=== PATIENT | male | born 1955 | race American Indian/Alaskan Native ===

== ENCOUNTER 2018-09-19 14:57 | Inpatient (IN) ==
[~2018-09-19 14:57] MED LIST: THIAMINE 100 MG in 0.9 % SODIUM CHLORIDE 50 ML IV SCH
[2018-09-19] MEDS ORDERED: IOPAMIDOL 100 ML BOTTLE IV ONE (14:58)
[2018-09-19] MEDS ORDERED: 0.9 % SODIUM CHLORIDE 1,000 ML IV ONE ×2 (15:21→16:51)
--- NOTE | 2018-09-19 15:46 | XRay Report ---
HISTORY: Tachypnea and right upper quadrant pain FINDINGS: The lungs are clear and well expanded. No pleural effusion is present and there is no free air beneath the diaphragms. The heart size, mediastinum, piotr and pulmonary vasculature are normal. There is a subtle dextroscoliotic curvature in the upper thoracic spine. Comparison with the prior exam from 04/20/18 shows no significant change. IMPRESSION: Normal chest Interpreted and Authenticated by: Rc Diaz 09/19/18
[2018-09-19 15:48] LABS: Basophils # (Auto) 0 K/mcL (0.0-0.3); Basophils % (Auto) 0.4 % (0.0-2.0); Eosinophils # (Auto) 0.1 K/mcL (0.0-0.7); Eosinophils % (Auto) 0.7 % (0.0-7.0); Granulocytes % (Auto) 75.9 % (38.0-78.0); Lymphocytes # (Auto) 1.4 K/mcL (1.5-4.8); Lymphocytes % (Auto) 15.9 % (15.5-49.0); Mean Corpuscular HGB Conc 33.2 g/dL (31.0-36.0); Monocytes # (Auto) 0.6 K/mcL (0.1-0.9); Monocytes % (Auto) 7.1 % (1.0-12.0); Platelet Count 244 K/mcL (140-440); RBC 4.32 M/mcL (4.50-5.90); Red Cell Distribution Width 12.6 % (11.5-14.5)
[2018-09-19] MEDS ORDERED: LORazepam 2 MG/ML VIAL IV ONE ×2 (15:52→19:04)
--- NOTE | 2018-09-19 16:01 | Emergency Department Note ---
Abdominal Pain HPI - General Chief Complaint: Abdominal Pain Stated Complaint: RUQ Abdominal Pain x2 Weeks Time Seen by Provider: 09/19/18 15:37 Source: patient Mode of arrival: ambulatory Limitations: no limitations - History of Present Illness HPI Narrative: This 63-year-old male comes emergency room reporting that he is vomited at least 20+ times in the past 24 hours. He is tried to drink fluids usually alcohol. He reports being a severe alcoholic sometimes as many as 12 beer per day. He has had 4 days of not keeping much of anything down. His pain in the right upper quadrant has been rather severe. Sometimes the pain spikes and sometimes is not so bad in between. Pain can be as severe as 7-8 out of 10. It has been accompanied with some cold sweats. No diarrhea. REVIEW OF SYSTEMS: Denies fevers. Denies chest pain. Some cough is not productive. Occasional little wheezing. No shortness of breath. No history of COPD diagnosed. No diarrhea or constipation, hematochezia or melena. Has a little dysuria. He has previously had some sort of a laser and is not certain if this was on the bladder or on his prostate. No back pain No headaches. Does feel very weak and lightheaded/dizzy. Some chronic anxiety and depression. He does not believe he has any diagnosis of bipolar or posttraumatic kinds of problems. Has had a history of a seizure related to alcohol withdrawal. - Related Data Home Medications Medication Instructions Recorded Confirmed Aripiprazole [Abilify] 20 mg PO QHS 02/13/18 06/12/18 Losartan [Cozaar] 50 mg PO DAILY 02/13/18 06/12/18 Oxybutynin Chloride [Oxybutynin 10 mg PO QDAY 02/13/18 06/12/18 Chloride ER] medication for prostate unknown PO BID 06/12/18 06/12/18 Allergies Allergy/AdvReac Type Severity Reaction Status Date / Time penicillin V [From Pen-Vee K] Allergy Severe Anaphylaxis Verified 06/12/18 08:00 Abdominal Pain PMH - Past Medical History [facility] Narrative: Medical History (Last Updated 09/19/18 @ 16:07 by Vaibhav Terrell DO) BPH (benign prostatic hyperplasia) (Chronic) Cigarette smoker (Chronic) COPD (chronic obstructive pulmonary disease) (Chronic) Hypertension, essential (Chronic) Alcohol abuse, continuous drinking behavior (Chronic) Alcohol withdrawal seizure (Resolved) History of pancreatitis (Chronic) Macrocytosis (Chronic) History of suicide attempt (Resolved) Drug overdose (Resolved) Anxiety (Chronic) Depression (Chronic) History of hepatitis C (Resolved) Erectile dysfunction (Chronic) Curvature of the penis (Chronic) Urinary urgency (Chronic) Alcohol intoxication (Resolved) Fatigue (Resolved) Sciatica (Resolved) Past Surgical History (Last Reviewed 12/21/17 @ 09:29 by Shaina Torres RN) History of photovaporization of prostate (Acute) History of appendectomy (Chronic) History of back surgery (Chronic) Family History (Last Reviewed 12/21/17 @ 09:29 by Shaina Torres RN) Other No pertinent family history Medical history: Reports: liver disease, other (pancreatitis). Denies: atrial fibrillation, COPD (but chart indicates COPD in Active Problem list), DM, hypothyroidism, myocardial infarction Denies: diverticulitis, kidney stone, pancreatitis (chart indicates has had in nursing history/notes.), peptic ulcer disease Psychiatric history: Reports: depression, prior suicide attempt - Social History Smoking status: Current every day smoker Alcohol use: Reports: Heavy, Recent Physical Exam Limitations: no limitations General appearance: alert, malaise (Moderate), other (Rather shaky) Head: atraumatic, normocephalic Eye: Present: EOMI, conjunctival injection ENT: normal oropharynx, mucous membranes moist Neck: Present: trachea midline, lymphadenopathy (Mild bilateral upper anterior nodes). Absent: thyromegaly Chest: Present: symmetric chest wall rise Respiratory: Present: normal lung sounds bilaterally. Absent: respiratory distress, wheezes, stridor, accessory muscle use, prolonged expiratory phase Cardiovascular: Present: regular rate, normal rhythm. Absent: systolic murmur, diastolic murmur Abdominal: Present: soft, tenderness, guarding. Absent: distention, rebound, rigidity, organomegaly, mass Abdominal tenderness: Present: RUQ, epigastrium, moderate, severe Extremities: Absent: pedal edema, pretibial edema, calf tenderness Back: Present: tenderness (Subjectively mildly tender in the lower back over the spinous processes area but no wincing or withdrawal on outpatient or percussion.). Absent: CVA tenderness (R), CVA tenderness (L), spinous process tenderness Neurological: Present: alert, CN II-XII intact Psychiatric: Present: flat affect, serious Skin: Present: warm, dry Course Vital Signs Temperature 99.0 F 09/19/18 14:58 Pulse Rate 100 H 09/19/18 14:58 Respiratory Rate 22 09/19/18 14:58 Blood Pressure 154/89 09/19/18 14:58 Pulse Oximetry (%) 97 09/19/18 14:58 Temperature 99.0 F 09/19/18 14:58 Pulse Rate 95 H 09/19/18 19:36 Respiratory Rate 20 09/19/18 19:46 Blood Pressure 136/90 09/19/18 19:46 Pulse Oximetry (%) 96 09/19/18 19:36 Abdominal Pain - MDM Narrative Medical decision making narrative: 3:43 PM Acute abdominal pain with persisting nausea and vomiting with poor intake times 4 days on top of a history of rather severe alcoholism. Suspect pancreatitis. Multiple labs, begin with x-ray imaging then go to ultrasound. May need CT as well. Has a history of pancreatitis although he denied that during the history. Several things in his history seem to be contraindicated by what is in his chart suspicious for possible alcoholic encephalopathy. Because of his high alcohol intake in 4 days without much kept in and him being quite shaky now, we will go ahead with lorazepam 0.5 followed by 1 mg frequently as needed to try to suppress his shakes and/or if he develops any tachycardia or diaphoresis. Radiologist calls at 5:03 PM and reports abdominal ultrasound - there is fatty liver but not cirrhotic. Plump pancreas but no specific signs of pancreatitis. Lipase is 82. No other specific findings to represent probable cause. Will do CT abdomen with contrast. 7:[address] scan includes moderate fatty liver disease but no associated varices or ascites. Pancreas appears unremarkable. There is a significant amount of stool in the colon of the right hepatic flexure area and it makes it somewhat difficult to rule out a mass. There is atherosclerotic disease of coronary arteries and lumbar degenerative disc disease. Patient is agreeable to be in the hospital with his history of 4 days of poor p.o. intake, sodium of 116, history of rather significant alcoholism. 8:08 PM I spoke with Dr. Ezra العراقي, hospitalist, who kindly accepts this patient for inpatient additional monitoring and treatment. - Medical Records Medical records reviewed: Yes I reviewed the patient's medical records. - Lab Data Lab results reviewed: Yes I reviewed the patient's lab results. Result diagrams: 09/19/18 15:15 09/19/18 15:15 Lab Results 09/19/18 09/19/18 09/19/18 Range/Units 15:15 15:15 15:15 WBC 8.9 (4.5-11.0) K/mcL RBC 4.32 L (4.50-5.90) M/mcL Hgb 15.2 (13.5-16.5) g/dL Hct 45.8 (41.0-55.0) % MCV 106.0 H (80.0-100.0) fL MCH 35.2 H (26.0-34.0) pg MCHC 33.2 (31.0-36.0) g/dL RDW 12.6 (11.5-14.5) % Plt Count 244 (140-440) K/mcL MPV 7.2 L (7.4-10.4) fL Gran % 75.9 (38.0-78.0) % Lymph % (Auto) 15.9 (15.5-49.0) % [place] % (Auto) 7.1 (1.0-12.0) % Eos % (Auto) 0.7 (0.0-7.0) % Baso % (Auto) 0.4 (0.0-2.0) % Gran # 6.7 (1.8-8.0) K/mcL Lymph # (Auto) 1.4 L (1.5-4.8) K/mcL [place] # (Auto) 0.6 (0.1-0.9) K/mcL Eos # (Auto) 0.1 (0.0-0.7) K/mcL Baso # (Auto) 0 (0.0-0.3) K/mcL VBG Lactic Acid 2.2 H (0.5-2.0) mmol/L Sodium 116 L* (133-145) mmol/L Potassium 3.9 (3.3-5.1) mmol/L Chloride 81 L (96-108) mmol/L Carbon Dioxide 22 (22-30) mmol/L Anion Gap 13.0 (8-16) BUN 6 L (8-23) mg/dl Creatinine 0.7 (0.7-1.2) mg/dl GFR Calculation 100 Glucose 107 H (70-105) mg/dL Calcium 8.6 (8.6-10.4) mg/dl Total Bilirubin 0.8 (0.0-1.0) mg/dL AST 28 (0-37) U/l ALT 23 (0-40) U/l Alkaline Phosphatase 45 (39-117) U/L C-Reactive Protein (0.0-0.8) mg/dl Total Protein 7.5 (5.9-8.4) gm/dL Albumin 4.4 (3.2-5.2) gm/dL Globulin 3.1 (2.2-3.7) gm/dL Albumin/Globulin Ratio 1.4 (1.0-2.3) Lipase (7-60) U/L Procalcitonin (<0.10) ng/mL Ethyl Alcohol (<0.010) gm/dl 09/19/18 09/19/18 09/19/18 Range/Units 15:15 15:15 15:15 WBC (4.5-11.0) K/mcL RBC (4.50-5.90) M/mcL Hgb (13.5-16.5) g/dL Hct (41.0-55.0) % MCV (80.0-100.0) fL MCH (26.0-34.0) pg MCHC (31.0-36.0) g/dL RDW (11.5-14.5) % Plt Count (140-440) K/mcL MPV (7.4-10.4) fL Gran % (38.0-78.0) % Lymph % (Auto) (15.5-49.0) % [place] % (Auto) (1.0-12.0) % Eos % (Auto) (0.0-7.0) % Baso % (Auto) (0.0-2.0) % Gran # (1.8-8.0) K/mcL Lymph # (Auto) (1.5-4.8) K/mcL [place] # (Auto) (0.1-0.9) K/mcL Eos # (Auto) (0.0-0.7) K/mcL Baso # (Auto) (0.0-0.3) K/mcL VBG Lactic Acid (0.5-2.0) mmol/L Sodium (133-145) mmol/L Potassium (3.3-5.1) mmol/L Chloride (96-108) mmol/L Carbon Dioxide (22-30) mmol/L Anion Gap (8-16) BUN (8-23) mg/dl Creatinine (0.7-1.2) mg/dl GFR Calculation Glucose (70-105) mg/dL Calcium (8.6-10.4) mg/dl Total Bilirubin (0.0-1.0) mg/dL AST (0-37) U/l ALT (0-40) U/l Alkaline Phosphatase (39-117) U/L C-Reactive Protein < 0.3 (0.0-0.8) mg/dl Total Protein (5.9-8.4) gm/dL Albumin (3.2-5.2) gm/dL Globulin (2.2-3.7) gm/dL Albumin/Globulin Ratio (1.0-2.3) Lipase 82 H (7-60) U/L Procalcitonin < 0.05 (<0.10) ng/mL Ethyl Alcohol 0.022 H (<0.010) gm/dl - Radiology Data Radiology results reviewed: Yes I reviewed the patient's radiology results. Disposition Pt seen by VETERINARY TECHNOLOGIST/PA only: No Clinical Impression: Hyponatremia, Alcohol abuse, continuous drinking behavior, Tremulousness Nausea & vomiting Qualifiers: Vomiting type: unspecified Vomiting Intractability: intractable Qualified Code(s): R11.2 - Nausea with vomiting, unspecified Disposition: Xfer As Inpt ([facility] [place])
[2018-09-19 16:09] LABS: C-Reactive Protein < 0.3 mg/dl (0.0-0.8); Lipase 82 U/L (7-60)
[2018-09-19 16:17] LABS: ALT/SGPT 23 U/l (0-40); Albumin 4.4 gm/dL (3.2-5.2); Albumin/Globulin Ratio 1.4 (1.0-2.3); Alkaline Phosphatase 45 U/L (39-117); Blood Urea Nitrogen 6 mg/dl (8-23)
--- NOTE | 2018-09-19 16:18 | XRay Report ---
HISTORY: Right upper quadrant pain for two weeks FINDINGS: There are a few air-fluid levels in bowel in the right mid abdomen. This is probably within a mobile cecum. It is not abnormally dilated. The small intestine is decompressed. No free intra-abdominal air is present. There is no apparent soft tissue mass. There are several vascular calcifications in the aorta and iliac arteries. Patient has had prior laminectomy performed from L2-3 through L4-5. IMPRESSION: No acute abnormality Interpreted and Authenticated by: Rc Diaz 09/19/18
--- NOTE | 2018-09-19 17:07 | Ultrasound Report ---
History: Right upper quadrant pain with nausea and vomiting FINDINGS: The liver is within normal limits of size but the parenchyma is mildly echogenic due to fatty infiltration. There are focal area of spared normal liver parenchyma adjacent the gallbladder fossa. The fatty infiltration was more apparent on the prior CT scan done on 06/15/17. There is no radiographic evidence of cirrhosis. Doppler shows normal blood flow in the hepatic and portal veins. The gallbladder is normal with no stones or thickening of the wall. Common bile duct ranges from 4.5 to 5.5 mm. The pancreas is somewhat heterogeneous and hypoechoic. It does not appear to be acutely inflamed and no pancreatic tumor is seen. There is a trace amount of ascites between the liver and pancreas. No abscess is seen. IMPRESSION: Fatty infiltration of liver Heterogeneous pancreas which could be due to low-grade chronic pancreatitis or fibrosis Trace amount of ascites Dr. Terrell was called with the results Interpreted and Authenticated by: Rc Diaz 09/19/18
[2018-09-19] MEDS ORDERED: ONDANSETRON 4 MG/2 ML VIAL IV ONE (18:35)
[2018-09-19 20:14] LABS: Appearance,Urine CLEAR; Bilirubin,Urine NEG (NEG); Color,Urine STRAW; Glucose,Urine (UA) NEGATIVE (NEG); Leukocyte Esterase,Urine NEG /uL (NEG); Protein,Urine NEG (NEG); Specific Gravity,Urine 1.002 (1.000-1.035); Urine Blood NEG mg/dL (<0.03); Urobilinogen,Urine NEG (NEG)
[2018-09-19 20:22] LABS: Amphetamine Screen,Urine NONE DETECTED (NONDETECTED); Benzodiazepines Screen,Urine NONE DETECTED (NONDETECTED); Cocaine Screen,Urine NONE DETECTED (NONDETECTED); Opiate Screen,Urine NONE DETECTED (NONDETECTED); Oxycodone, Urine Screen NONE DETECTED (NONDETECTED)
[2018-09-19] MEDS ORDERED: LORazepam 2 MG/ML VIAL IV PRN (20:50)
[2018-09-19] MEDS ORDERED: chlordiazePOXIDE 25 MG CAPSULE PO PRN ×2 (20:50→21:47)
--- NOTE | 2018-09-19 20:58 | Internal Med History&Physical ---
Medical - H&P: HPI Patient information: Note initiated : 09/19/18 at 8:53 pm Service Date, if different from initiated Date: [] Patient: Dany Marrero 63 y/o M admitted on for RUQ Abdominal Pain x2 Weeks. Chief Complaint: [] History of present illness: Mr. Marrero is a 63 year old M right upper quadrant pain. Patient states he has had abdominal pain for 2-3 weeks. Does not recall how it started or the circumstances around when he first experienced it. He describes it as a sharp pain nonradiating made worse by movement better by laying down. He went to the [facility] and he said the plan was to do a abdominal ultrasound which has not been done yet. Came in today because he has had nausea vomiting for 4 days is been unable to keep anything down. He states he has a small appetite typical eating a hotdog and piece of bread. He drinks alcohol 6-12 beers per day. He states he is cut down he is to be 30 beers per day 7 months ago. He states he thinks his last bowel movement was this morning was soft, no recent diarrhea. But has had nausea vomiting as previously mentioned past 4 days unable to keep anything down including his alcohol today. He last had a beer 1230 but vomited it back up. Per notes he did have a seizure in the past related to alcohol withdrawal. He was able to tell the ER that he was having some withdrawal. In the ED had extensive workup. His sodium was found to 116 with a mildly elevated lactate at 2.2. No signs of infection. Urinalysis with ketones abdominal x-ray ultrasound and CT to try to delineate the Cause and source of this pain. Abdominal ultrasound with fatty liver. Gallbladder unremarkable. The CT abdomen per ED physician, no official report yet. But no acute findings other than what appeared to be some stool impacted in the colon. But otherwise no pancreatitis or other source of the pain. Review of Systems: Pertinent positives as above. Has chronic cough. Denies fever/chills/chest pain/dyspnea/diarrhea. Remaining 10 point review of systems reviewed negative Medical - H&P: PM Medical history: Medical History (Last Updated 09/19/18 @ 20:17 by Vaibhav Terrell DO) ASHD (arteriosclerotic heart disease) (Chronic) BPH (benign prostatic hyperplasia) (Chronic) Cigarette smoker (Chronic) COPD (chronic obstructive pulmonary disease) (Chronic) Hypertension, essential (Chronic) Alcohol abuse, continuous drinking behavior (Chronic) History of pancreatitis (Chronic) Macrocytosis (Chronic) History of suicide attempt (Resolved) Drug overdose (Resolved) Anxiety (Chronic) Depression (Chronic) History of hepatitis C (Resolved) Erectile dysfunction (Chronic) Curvature of the penis (Chronic) Urinary urgency (Chronic) Degenerative disc disease, lumbar (Chronic) Alcohol intoxication (Resolved) Fatigue (Resolved) Sciatica (Resolved) Past Surgical History (Last Reviewed 12/21/17 @ 09:29 by Shaina Torres RN) History of photovaporization of prostate (Acute) History of appendectomy (Chronic) History of back surgery (Chronic) Family History (Last Reviewed 12/21/17 @ 09:29 by Shaina Torres RN) Other Mother and father both had heart disease Social History (Last Updated 06/12/18 @ 08:06 by Joshua Avila MD) Smokes 1/2 packs/day of cigarettes Drinks 6-12 beers per day, has cut down he used to be 30 beers per day 7 8 months ago. Uses a cane because of hip pain, denies any neuropathy or ataxia. Lives by himself Medical - H&P: Meds Home Medications Medication Instructions Recorded Confirmed Type Losartan [Cozaar] 50 mg PO DAILY 02/13/18 09/19/18 History Allergies Allergy/AdvReac Type Severity Reaction Status Date / Time penicillin V [From Pen-Vee K] Allergy Severe Anaphylaxis Verified 06/12/18 08:00 Medical - H&P: Exam - Constitutional Vitals: Temp Pulse Resp BP Pulse Ox 99.0 F 94 H 14 124/75 94 09/19/18 14:58 09/19/18 20:41 09/19/18 20:41 09/19/18 20:41 09/19/18 20:41 Exam: General: Alert, Awake, No acute Distress Eyes/N/T: EOMI, PEERL, Head/Neck: neck supple, normocephalic atraumatic CV: RRR, No murmurs, normal s1/s2 Pulm: Clear b/l, no wheezing/rhonchi/rales Abd: soft, protuberant, tenderness to elevation right lower and right upper quadrant, +BS x4 Ext: no clubbing/cyanosis/edema Neuro: Alert, no focal deficits, moves all extremities, CN 2-12 grossly intact, symmetrical strength b/l upper/lower, sensations intact b/l upper/lower Skin: warm/dry Medical - H&P: Reslt - Labs CBC & Chem 7: 09/19/18 15:15 09/19/18 15:15 Labs: Short CBC 09/19/18 Range/Units 15:15 WBC 8.9 (4.5-11.0) K/mcL Hgb 15.2 (13.5-16.5) g/dL Hct 45.8 (41.0-55.0) % Plt Count 244 (140-440) K/mcL BMP 09/19/18 15:15 Sodium 116 L* Potassium 3.9 Chloride 81 L Carbon Dioxide 22 BUN 6 L Creatinine 0.7 Glucose 107 H Calcium 8.6 Liver Function 09/19/18 Range/Units 15:15 Total Bilirubin 0.8 (0.0-1.0) mg/dL AST 28 (0-37) U/l ALT 23 (0-40) U/l Alkaline Phosphatase 45 (39-117) U/L Albumin 4.4 (3.2-5.2) gm/dL Urine 09/19/18 Range/Units 19:34 Urine Color Straw Urine Appearance Clear Urine pH 7.0 (5.0-9.0) Ur Specific [place] 1.002 (1.000-1.035) Urine Protein Neg (NEG) mg/dL Urine Glucose (UA) Negative (NEG) mg/dL Medical - H&P: A/P - Narrative A/P Narrative: A: *Hyponatremia, severe: 2/2 beer potomania and 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 -Acute on Chronic, but for purposes of treatment this is a chronic state - *N/V: 2/2 above *RUQ Abd pain: ?etiology not isolated as of yet, ?fecal impaction, ?atypical chronic pancreatitis -imaging no obvious cause, LFT's/lipase ok -no fever/jaundice to suspect cholangitis *Etoh Abuse in Withdrawal: *HTN: on losartan *Depression: *Fatty liver: 2/2 etoh *Tobacco abuse *COPD (not on home O2) *h/o Hep C, treated in past: P: -pending official CT report -BMP before any more NS IVF's, serial BMP -Urine and osmolality studies -TSH -Clear liquids -CIWA/vitamin/benzo's -Folate/B12 check - -Tobacco/alcohol cessation counseling - -ppx: lovenox/pepcid
[2018-09-19 21:30] LABS: Osmolality,Urine 111 mOsm/kg (80-1000)
[2018-09-19] MEDS ORDERED: ACETAMINOPHEN 325 MG TABLET PO PRN (21:47)
[2018-09-19] MEDS ORDERED: ONDANSETRON 4 MG/2 ML VIAL IV PRN (21:47)
[2018-09-19] MEDS ORDERED: PROMETHAZINE 12.5 MG SUPP.RECT PR PRN (21:47)
[2018-09-19] MEDS ORDERED: POLYETHYLENE GLYCOL 3350 17 GM PACKET PO PRN (21:47)
[2018-09-19] MEDS ORDERED: METOCLOPRAMIDE 10 MG/2 ML VIAL IV PRN (21:47)
[2018-09-19] MEDS ORDERED: POTASSIUM CHLORIDE 20 MEQ TABLET PO PRN ×2 (21:47)
[2018-09-19] MEDS ORDERED: MAGNESIUM SULFATE 2 GM/50 ML BAG IV PRN (21:47)
[2018-09-19] MEDS ORDERED: POTASSIUM CHLORIDE 40 MEQ in DEXTROSE 5% IN WATER 500 ML IV PRN (21:47)
[2018-09-19] MEDS ORDERED: IPRATROPIUM/ALBUTEROL 3 ML AMPUL.NEB NEB PRN (21:47)
[2018-09-19] MEDS ORDERED: FLEETS ADULT ENEMA PR PRN (21:47)
[2018-09-19] MEDS ORDERED: SENNOSIDES 1 TABLET PO PRN (21:47)
[2018-09-19] MEDS ORDERED: LACTULOSE 20 GM/30 ML ORAL.SOL PO PRN (21:47)
[2018-09-19 21:53] LABS: Blood Urea Nitrogen 6 mg/dl (8-23)
[2018-09-19] MEDS: LORazepam 2 MG/ML VIAL IV PRN (22:25)
[2018-09-19] MEDS: DEXTROSE 5% IN WATER 500 ML IV SCH ×2 (22:26→22:49)
[2018-09-19] MEDS: 0.9 % SODIUM CHLORIDE 10 ML SYRINGE IV SCH (22:27)
[2018-09-19] MEDS: FAMOTIDINE/PF 20 MG/2 ML VIAL IV SCH (22:30)
[2018-09-19] MEDS: DOCUSATE SODIUM 100 MG CAPSULE PO SCH (22:30)
[2018-09-19] MEDS: CYANOCOBALAMIN (VITAMIN B-12) 500 MCG TABLET PO SCH (22:45)
[2018-09-19] MEDS: DEXTROSE 5% IN WATER 750 ML IV SCH (22:54)
[2018-09-20] MEDS: LORazepam 2 MG/ML VIAL IV PRN ×2 (00:41→20:21)
[2018-09-20] MEDS: 0.9 % SODIUM CHLORIDE 10 ML SYRINGE IV SCH ×4 (05:09→20:22)
[2018-09-20] MEDS: DEXTROSE 5% IN WATER 750 ML IV SCH ×3 (05:32→10:35)
[2018-09-20 06:25] LABS: Basophils # (Auto) 0 K/mcL (0.0-0.3); Basophils % (Auto) 0.4 % (0.0-2.0); Eosinophils # (Auto) 0.1 K/mcL (0.0-0.7); Granulocytes % (Auto) 66.3 % (38.0-78.0); Lymphocytes # (Auto) 1.1 K/mcL (1.5-4.8); Lymphocytes % (Auto) 20.6 % (15.5-49.0); Mean Cell Volume 106.2 fL (80.0-100.0); Mean Corpuscular HGB Conc 33.7 g/dL (31.0-36.0); Monocytes # (Auto) 0.6 K/mcL (0.1-0.9); Monocytes % (Auto) 11.7 % (1.0-12.0); Platelet Count 193 K/mcL (140-440); RBC 3.85 M/mcL (4.50-5.90); Red Cell Distribution Width 12.4 % (11.5-14.5)
[2018-09-20 06:51] LABS: Prealbumin 24.6 mg/dl (20-40)
[2018-09-20 06:57] LABS: ALT/SGPT 18 U/l (0-40); Albumin 3.7 gm/dL (3.2-5.2); Albumin/Globulin Ratio 1.4 (1.0-2.3); Alkaline Phosphatase 36 U/L (39-117); Bilirubin,Direct < 0.2 mg/dL (0.0-0.3); Blood Urea Nitrogen 5 mg/dl (8-23); Gamma Glutamyl Transpeptidase 32 U/L (8-61); Uric Acid 2.5 mg/dL (2.5-8.0)
--- NOTE | 2018-09-20 07:38 | Internal Med Progress Note ---
Medical - PN: Subj Patient information: Note initiated : 09/20/18 at 7:32 am Service Date, if different from initiated Date: [] Patient: Dany Marrero 63 y/o M admitted on 09/19/18 for RUQ Abdominal Pain x2 Weeks. Chief Complaint: [] Interval history: Mr. Marrero is a 63 year old M right upper quadrant pain. Patient states he has had abdominal pain for 2-3 weeks. Does not recall how it started or the circumstances around when he first experienced it. He describes it as a sharp pain nonradiating made worse by movement better by laying down. He went to the [place] and he said the plan was to do a abdominal ultrasound which has not been done yet. Came in today because he has had nausea vomiting for 4 days is been unable to keep anything down. He states he has a small appetite typical eating a hotdog and piece of bread. He drinks alcohol 6-12 beers per day. He states he is cut down he is to be 30 beers per day 7 months ago. He states he thinks his last bowel movement was this morning was soft, no recent diarrhea. But has had nausea vomiting as previously mentioned past 4 days unable to keep anything down including his alcohol today. He last had a beer 1230 but vomited it back up. Per notes he d id have a seizure in the past related to alcohol withdrawal. He was able to tell the ER that he was having some withdrawal. In the ED had extensive workup. His sodium was found to 116 with a mildly elevated lactate at 2.2. No signs of infection. Urinalysis with ketones abdominal x-ray ultrasound and CT to try to delineate the Cause and source of this pain. Abdominal ultrasound with fatty liver. Gallbladder unremarkable. The CT abdomen per ED physician, no official report yet. But no acute findings other than what appeared to be some stool impacted in the colon. But otherwise no pancreatitis or other source of the pain. 09/20 States he has had abdominal pain but better. And overall he feels better. He has a dry cough no headaches fever chills no chest pain. On D5 water follow-up sodium pending as we are stalling the sodium correction at this time. Better C was scores this morning. Review of Systems: denies headache/fever/chills/nausea/vomiting/chest or abdominal pain/dyspnea. Otherwise see above. - Constitutional Vitals: Vital Signs Temp Pulse Resp BP Pulse Ox 99.0 F 73 16 119/82 96 09/20/18 03:01 09/20/18 06:01 09/20/18 06:01 09/20/18 06:01 09/20/18 06:01 Period Temp Pulse Resp BP Sys/See Pulse Ox Last 24 Hr 99.0 F-99.8 F 73-102 11-27 94-166/73-117 94-98 Intake and Output 09/19/18 09/20/18 09/20/18 21:59 05:59 13:59 Intake Total 1999 1260 Output Total 1300 552 Balance 700 708 Weight 85.899 kg Intake & Output: Intake & Output 09/19/18 09/20/18 09/20/18 21:59 05:59 13:59 Intake Total 1999 1260 Output Total 1300 552 Balance 700 708 Weight 85.899 kg Intake: IV 1999 900 Sodium Chloride 0.9% 1,000 ml @ 2000 Wide Open IV [facility] ONE Rx#: [id number] Dextrose 5% in Water 750 ml @ 900 160 mls/hr IV .Q4H42M [facility] Rx#: [id number] Oral 360 Output: Void Amount 1300 550 # of times incontinent of urine 2 Other: Meal Nourishment/Supplement Percent of Meal Consumed 100% Feeding Ability Assist with Tray Set Up Urine Appearance Clear Clear Urine Color Bright Yellow Bright Yellow Urine Odor Normal Strong Stool Size Smear Stool Color Brown Stool Consistency Soft Exam: General: Alert, Awake, No acute Distress Eyes/N/T: EOMI, , Head/Neck: neck supple, CV: RRR, No murmurs, Pulm: Clear b/l, no wheezing/rhonchi/rales Abd: soft, protuberant, mild tenderness right side of the abdomen much improved, +BS x4 Ext: no clubbing/cyanosis/edema Neuro: Alert, no focal deficits, moves all extremities, Skin: warm/dry Medical - PN: Obj Da - Labs CBC & Chem 7: 09/20/18 03:54 09/20/18 03:54 Labs: Abnormal Lab Results 09/20/18 09/20/18 09/19/18 03:54 03:54 21:00 RBC 3.85 L Hct 40.9 L MCV 106.2 H MCH 35.8 H MPV 7.2 L Lymph # (Auto) 1.1 L VBG Lactic Acid Sodium 123 L Chloride 92 L BUN 5 L Creatinine 0.6 L Glucose 106 H Osmolality Uric Acid Calcium 8.3 L Phosphorus 2.5 L Alkaline Phosphatase 36 L Lipase Folate Urine Ketones Ethyl Alcohol 09/19/18 09/19/18 09/19/18 21:00 20:52 19:34 RBC Hct MCV MCH MPV Lymph # (Auto) VBG Lactic Acid Sodium 123 L Chloride 88 L BUN 6 L Creatinine Glucose Osmolality 257 L Uric Acid 2.0 L Calcium 8.4 L Phosphorus Alkaline Phosphatase Lipase Folate > 20.0 H Urine Ketones 5/tr A Ethyl Alcohol 09/19/18 09/19/18 09/19/18 15:15 15:15 15:15 RBC Hct MCV MCH MPV Lymph # (Auto) VBG Lactic Acid 2.2 H Sodium Chloride BUN Creatinine Glucose Osmolality Uric Acid Calcium Phosphorus Alkaline Phosphatase Lipase 82 H Folate Urine Ketones Ethyl Alcohol 0.022 H 09/19/18 09/19/18 15:15 15:15 RBC 4.32 L Hct MCV 106.0 H MCH 35.2 H MPV 7.2 L Lymph # (Auto) 1.4 L VBG Lactic Acid Sodium 116 L* Chloride 81 L BUN 6 L Creatinine Glucose 107 H Osmolality Uric Acid Calcium Phosphorus Alkaline Phosphatase Lipase Folate Urine Ketones Ethyl Alcohol Meds: Medications Acetaminophen (Tylenol) 650 mg PO Q6HP PRN PRN Reason: PAIN/FEVER > 101 Albuterol/Ipratropium (Duoneb) 3 ml NEB Q4HP PRN PRN Reason: Shortness Of Breath Chlordiazepoxide HCl (Librium) 50 mg PO Q8HP PRN PRN Reason: Alcohol Withdrawal Cyanocobalamin (Vitamin B-12) 1,000 mcg PO DAILY [facility] Last Admin: 09/19/18 22:45 Dose: 1,000 mcg Documented by: Docusate Sodium (Colace) 100 mg PO BID [facility] Last Admin: 09/19/18 22:30 Dose: 100 mg Documented by: Enoxaparin Sodium (Lovenox) 40 mg SQ DAILY [facility] Famotidine (Pepcid) 20 mg IV Q12 [facility] Last Admin: 09/19/18 22:30 Dose: 20 mg Documented by: Folic Acid (Folic Acid) 1 mg PO DAILY [facility] Thiamine HCl 100 mg/ Sodium (Chloride) 51 mls @ 50 mls/hr IV DAILY [facility] Potassium Chloride 40 meq/ (Dextrose) 520 mls @ 130 mls/hr IV ONCE PRN PRN Reason: Potassium < 3 Magnesium Sulfate (Magnesium Sulfate) 2 gm in 50 mls @ 50 mls/hr IV ONCE PRN PRN Reason: Magnesium </= 1.6 Dextrose (Dextrose 5% In Water) 750 mls @ 160 mls/hr IV .Q4H42M [facility] Last Admin: 09/20/18 05:32 Dose: 160 mls/hr Documented by: Iron Carb/Multivit/[employer]/Folic Acid (Multivitamin W/Minerals) 1 tab PO DAILY [facility] Lactulose (Cephulac) 10 gm PO DAILYP PRN PRN Reason: Constipation Lorazepam (Ativan) 0 mg IV Q4HP PRN; Protocol PRN Reason: Alcohol Withdrawal Last Admin: 09/20/18 00:41 Dose: 2 mg Documented by: Losartan Potassium (Cozaar) 50 mg PO DAILY [facility] Metoclopramide HCl (Reglan) 10 mg IV Q6HP PRN PRN Reason: Nausea And Vomiting Ondansetron HCl (Zofran) 4 mg IV Q4HP PRN PRN Reason: Nausea And Vomiting Polyethylene Glycol (Miralax) 17 gm PO DAILYP PRN PRN Reason: Constipation Potassium Chloride (Kdur) 40 meq PO ONCE PRN PRN Reason: Potssium is 3-3.5 Potassium Chloride (Kdur) 40 meq PO ONCE PRN PRN Reason: Potassium < 3 Promethazine HCl (Phenergan) 12.5 mg CO Q6HP PRN PRN Reason: Pain Senna (Senokot) 2 tab PO HSP PRN PRN Reason: Constipation Sodium Biphosphate/Sodium Phosphate (Fleets Adult) 1 dose CO Q3DP PRN PRN Reason: Constipation Sodium Chloride (Saline Flush) 10 ml IV Q8 [facility] Last Admin: 09/20/18 05:09 Dose: Not Given Documented by: Medical - PN: A/P - Time Spent With Patient Total time spent is greater than 50% in coordination of care (as documented) at patient's floor/unit and/or counseling patient: - Narrative A/P Narrative: A: *Hyponatremia, severe: 2/2 beer potomania and 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 -Acute on Chronic, but for purposes of treatment this is a chronic state -TSH ok, *N/V: 2/2 above *RUQ Abd pain: etiology likely fecal impaction and hepatic flexure, -CT abd with fecal impaction hepatic flexure, GB ok, fatty liver, no splenomegaly, pancreas ok, no obstruction.LFT's/lipase ok -no fever/jaundice to suspect cholangitis *Etoh Abuse in Withdrawal: *HTN: on losartan *Depression: *Fatty liver: 2/2 etoh *Tobacco abuse *COPD (not on home O2) *h/o Hep C, treated in past: *B12 Deficiency: P: -d5w to slow sodium correction -f/u BMP -Clear liquids -bowel regimen -CIWA/vitamin/benzo's - -Tobacco/alcohol cessation counseling -supp B12 -ppx: lovenox/pepcid Medical - PN: Qual - VTE Deep Vein Thrombosis/Pulmonary Embolism Present on Admission: No
--- NOTE | 2018-09-20 07:50 | Cat Scan Report ---
CLINICAL INFORMATION: Right upper quadrant and epigastric pain COMPARISON: 06/15/17 TECHNIQUE: Following oral contrast and the injection of intravenous contrast the patient was scanned during the portal venous phase from the diaphragm through the symphysis pubis. Sagittal and coronal reformats were created.. The radiation exposure was limited using dose reduction technology. FINDINGS: The lung bases are clear. There is moderate generalized fatty infiltration of liver. The liver is normal in size and there is no evidence of mass or radiographic evidence of cirrhosis. The spleen is normal in size and homogeneous. No varices or ascites are present. The gallbladder appears normal with no stones or thickening of the wall. The bile ducts are nondilated. The pancreas is normal in size and homogeneous. The pancreatic duct is nondilated and there are no calcifications or pseudocysts in or adjacent to the pancreas. The adrenals and kidneys are normal. There is no kidney stone or hydronephrosis. The aorta is normal in caliber. There is a moderate amount of plaque in the distal abdominal aorta extending into the iliac arteries. There is approximately 50% stenosis in the proximal right common iliac artery. The oral contrast is passed through stomach and normal small intestine to the ileocecal valve without obstruction. The appendix is surgically absent. There is a moderate amount of solid fecal material in the colon, predominantly at the level of the hepatic flexure. The wall does not appear thickened. Underlying polyp or mass in the colon cannot be excluded. There are couple noninflamed diverticula in the descending and sigmoid colon. Urinary bladder appears normal. The prostate is normal in size with somewhat heterogeneous. The seminal vesicles are normal. No adenopathy is present within the abdomen or pelvis. There is no hernia. There are postoperative changes in the lumbar spine following prior laminectomy at L2-3 L3-4 and L4-5. There is moderate disc space narrowing at L3-4 and L5-S1 and spurs around the margins of the discs. Overall there has been no significant change since 06/15/17. IMPRESSION: Moderate fatty infiltration of the liver Fecal impaction in the hepatic flexure without evidence of bowel obstruction or inflammation of the bowel wall Atherosclerosis with mild stenosis of the right common iliac artery Dr. Terrell was called with the results Interpreted and Authenticated by: Rc Diaz 09/20/18
[2018-09-20] MEDS: DEXTROSE 5% IN WATER 500 ML IV SCH ×2 (08:15→13:28)
[2018-09-20] MEDS ORDERED: THIAMINE 100 MG in 0.9 % SODIUM CHLORIDE 50 ML IV SCH (09:00)
[2018-09-20] MEDS ORDERED: FOLIC ACID 1 MG TABLET PO SCH ×2 (09:00)
[2018-09-20] MEDS ORDERED: LOSARTAN 50 MG TABLET PO SCH (09:00)
[2018-09-20] MEDS ORDERED: ENOXAPARIN 40 MG/0.4 ML SYRINGE SQ SCH (09:00)
[2018-09-20] MEDS ORDERED: MULTIVIT,THER IRON,CA,FA & MIN 1 TABLET PO SCH ×2 (09:00)
[2018-09-20] MEDS: DOCUSATE SODIUM 100 MG CAPSULE PO SCH ×3 (09:52→20:22)
[2018-09-20] MEDS ORDERED: NICOTINE 21 MG PATCH TOPICAL SCH (10:00)
[2018-09-20] MEDS: CYANOCOBALAMIN (VITAMIN B-12) 500 MCG TABLET PO SCH (10:34)
[2018-09-20] MEDS: FAMOTIDINE/PF 20 MG/2 ML VIAL IV SCH ×2 (10:34→20:22)
[2018-09-20] MEDS ORDERED: LORazepam 2 MG/ML VIAL IV PRN (11:32)
[2018-09-20] MEDS ORDERED: LACTULOSE 20 GM/30 ML ORAL.SOL PO ONE (11:32)
[2018-09-20 12:01] LABS: Blood Urea Nitrogen 5 mg/dl (8-23)
[2018-09-20] MEDS ORDERED: PROMETHAZINE 12.5 MG SUPP.RECT PR PRN (13:28)
[2018-09-20] MEDS ORDERED: MAGNESIUM SULFATE 2 GM/50 ML BAG IV PRN (13:28)
[2018-09-20] MEDS ORDERED: IPRATROPIUM/ALBUTEROL 3 ML AMPUL.NEB NEB PRN (13:28)
[2018-09-20] MEDS ORDERED: FLEETS ADULT ENEMA PR PRN (13:28)
[2018-09-20] MEDS ORDERED: ACETAMINOPHEN 325 MG TABLET PO PRN (13:28)
[2018-09-20] MEDS ORDERED: POTASSIUM CHLORIDE 40 MEQ in DEXTROSE 5% IN WATER 500 ML IV PRN (13:28)
[2018-09-20] MEDS ORDERED: METOCLOPRAMIDE 10 MG/2 ML VIAL IV PRN (13:28)
[2018-09-20] MEDS ORDERED: POTASSIUM CHLORIDE 20 MEQ TABLET PO PRN ×2 (13:28)
[2018-09-20] MEDS ORDERED: ONDANSETRON 4 MG/2 ML VIAL IV PRN (13:28)
[2018-09-20] MEDS ORDERED: SENNOSIDES 1 TABLET PO PRN (13:28)
[2018-09-20] MEDS ORDERED: POLYETHYLENE GLYCOL 3350 17 GM PACKET PO PRN (13:28)
[2018-09-20] MEDS ORDERED: LACTULOSE 20 GM/30 ML ORAL.SOL PO PRN (13:28)
[2018-09-20 16:13] LABS: Blood Urea Nitrogen 5 mg/dl (8-23)
[2018-09-20] MEDS: SODIUM CHLORIDE 1 GM TABLET PO SCH ×2 (17:43→20:22)
[2018-09-20 21:20] LABS: Blood Urea Nitrogen 4 mg/dl (8-23)
[2018-09-20] MEDS ORDERED: SODIUM CHLORIDE 1 GM TABLET PO ONE (22:01)
[2018-09-20] MEDS: chlordiazePOXIDE 25 MG CAPSULE PO PRN (22:37)
[2018-09-21] MEDS: 0.9 % SODIUM CHLORIDE 10 ML SYRINGE IV SCH ×4 (05:40→20:17)
[2018-09-21 06:15] LABS: Blood Urea Nitrogen 4 mg/dl (8-23)
--- NOTE | 2018-09-21 07:41 | Internal Med Progress Note ---
Medical - PN: Subj Patient information: Note initiated : 09/21/18 at 7:33 am Service Date, if different from initiated Date: [] Patient: Dany Marrero 63 y/o M admitted on 09/19/18 for RUQ Abdominal Pain x2 Weeks. Chief Complaint: [] Interval history: Mr. Marrero is a 63 year old M right upper quadrant pain. Patient states he has had abdominal pain for 2-3 weeks. Does not recall how it started or the circumstances around when he first experienced it. He describes it as a sharp pain nonradiating made worse by movement better by laying down. He went to the [place] and he said the plan was to do a abdominal ultrasound which has not been done yet. Came in today because he has had nausea vomiting for 4 days is been unable to keep anything down. He states he has a small appetite typical eating a hotdog and piece of bread. He drinks alcohol 6-12 beers per day. He states he is cut down he is to be 30 beers per day 7 months ago. He states he thinks his last bowel movement was this morning was soft, no recent diarrhea. But has had nausea vomiting as previously mentioned past 4 days unable to keep anything down including his alcohol today. He last had a beer 1230 but vomited it back up. Per notes he d id have a seizure in the past related to alcohol withdrawal. He was able to tell the ER that he was having some withdrawal. In the ED had extensive workup. His sodium was found to 116 with a mildly elevated lactate at 2.2. No signs of infection. Urinalysis with ketones abdominal x-ray ultrasound and CT to try to delineate the Cause and source of this pain. Abdominal ultrasound with fatty liver. Gallbladder unremarkable. The CT abdomen per ED physician, no official report yet. But no acute findings other than what appeared to be some stool impacted in the colon. But otherwise no pancreatitis or other source of the pain. 09/20 States he has had abdominal pain but better. And overall he feels better. He has a dry cough no headaches fever chills no chest pain. On D5 water follow-up sodium pending as we are stalling the sodium correction at this time. Better CIWA scores this morning. 09/21 Poor sleep last night. Still has some abdominal discomfort on the right. No mention of cough today or headaches no other new complaints. Last BM was a small loose stool yesterday otherwise no real BM. Review of Systems: denies headache/fever/chills/nausea/vomiting/chest pain/dyspnea. Otherwise see above. - Constitutional Vitals: Vital Signs Temp Pulse Resp BP Pulse Ox 98.0 F 78 18 125/84 96 09/21/18 03:30 09/20/18 12:01 09/21/18 03:30 09/21/18 03:30 09/21/18 03:30 Period Temp Pulse Resp BP Sys/See Pulse Ox Last 24 Hr 98.0 F-99.5 F 78-86 16-22 113-174/66-95 95-100 Intake and Output 09/20/18 09/21/18 09/21/18 21:59 05:59 13:59 Intake Total 1170 600 Output Total 800 1201 Balance 370 -601 Weight 86.682 kg Intake & Output: Intake & Output 09/20/18 09/21/18 09/21/18 21:59 05:59 13:59 Intake Total 1170 600 Output Total 800 1201 Balance 370 -601 Weight 86.682 kg Intake: Oral 1170 600 Output: Void Amount 800 1200 # of times incontinent of urine 1 Other: Meal Dinner Percent of Meal Consumed 100% Feeding Ability Assist with Tray Set Up Urine Appearance Cloudy Clear Urine Color Bright Yellow Bright Yellow Urine Odor Strong Strong Exam: General: Alert, Awake, No acute Distress Eyes/N/T: EOMI, , Head/Neck: neck supple, CV: RRR, No murmurs, Pulm: Clear b/l, no wheezing/rhonchi/rales Abd: soft, protuberant, +BS x4 Ext: no clubbing/cyanosis/edema Neuro: Alert, no focal deficits, moves all extremities, Skin: warm/dry Medical - PN: Obj Da - Labs CBC & Chem 7: 09/20/18 03:54 09/21/18 03:58 Labs: Abnormal Lab Results 09/21/18 09/20/18 09/20/18 03:58 20:08 15:15 RBC Hct MCV MCH MPV Lymph # (Auto) VBG Lactic Acid Sodium 128 L 122 L 121 L Chloride 95 L 89 L 89 L BUN 4 L 4 L 5 L Creatinine Glucose Osmolality Uric Acid Calcium 8.2 L 8.4 L Phosphorus Alkaline Phosphatase Lipase Folate Urine Ketones Ethyl Alcohol 09/20/18 09/20/18 09/20/18 11:07 03:54 03:54 RBC 3.85 L Hct 40.9 L MCV 106.2 H MCH 35.8 H MPV 7.2 L Lymph # (Auto) 1.1 L VBG Lactic Acid Sodium 120 L 123 L Chloride 88 L 92 L BUN 5 L 5 L Creatinine 0.6 L Glucose 109 H 106 H Osmolality Uric Acid Calcium 8.1 L 8.3 L Phosphorus Alkaline Phosphatase 36 L Lipase Folate Urine Ketones Ethyl Alcohol 09/19/18 09/19/18 09/19/18 21:00 21:00 20:52 RBC Hct MCV MCH MPV Lymph # (Auto) VBG Lactic Acid Sodium 123 L Chloride 88 L BUN 6 L Creatinine Glucose Osmolality 257 L Uric Acid 2.0 L Calcium 8.4 L Phosphorus 2.5 L Alkaline Phosphatase Lipase Folate > 20.0 H Urine Ketones Ethyl Alcohol 09/19/18 09/19/18 09/19/18 19:34 15:15 15:15 RBC Hct MCV MCH MPV Lymph # (Auto) VBG Lactic Acid Sodium Chloride BUN Creatinine Glucose Osmolality Uric Acid Calcium Phosphorus Alkaline Phosphatase Lipase 82 H Folate Urine Ketones 5/tr A Ethyl Alcohol 0.022 H 09/19/18 09/19/18 09/19/18 15:15 15:15 15:15 RBC 4.32 L Hct MCV 106.0 H MCH 35.2 H MPV 7.2 L Lymph # (Auto) 1.4 L VBG Lactic Acid 2.2 H Sodium 116 L* Chloride 81 L BUN 6 L Creatinine Glucose 107 H Osmolality Uric Acid Calcium Phosphorus Alkaline Phosphatase Lipase Folate Urine Ketones Ethyl Alcohol Meds: Medications Acetaminophen (Tylenol) 650 mg PO Q6HP PRN PRN Reason: PAIN/FEVER > 101 Albuterol/Ipratropium (Duoneb) 3 ml NEB Q4HP PRN PRN Reason: Shortness Of Breath Chlordiazepoxide HCl (Librium) 50 mg PO Q8HP PRN PRN Reason: Alcohol Withdrawal Last Admin: 09/20/18 22:37 Dose: 50 mg Documented by: Cyanocobalamin (Vitamin B-12) 1,000 mcg PO DAILY [facility] Docusate Sodium (Colace) 100 mg PO BID [facility] Last Admin: 09/20/18 20:22 Dose: 100 mg Documented by: Enoxaparin Sodium (Lovenox) 40 mg SQ DAILY [facility] Famotidine (Pepcid) 20 mg IV Q12 [facility] Last Admin: 09/20/18 20:22 Dose: 20 mg Documented by: Folic Acid (Folic Acid) 1 mg PO DAILY [facility] Potassium Chloride 40 meq/ (Dextrose) 520 mls @ 130 mls/hr IV ONCE PRN PRN Reason: Potassium < 3 Magnesium Sulfate (Magnesium Sulfate) 2 gm in 50 mls @ 50 mls/hr IV ONCE PRN PRN Reason: Magnesium </= 1.6 Thiamine HCl 100 mg/ Sodium (Chloride) 51 mls @ 50 mls/hr IV DAILY [facility] Iron Carb/Multivit/[place]/Folic Acid (Multivitamin W/Minerals) 1 tab PO DAILY [facility] Lactulose (Cephulac) 10 gm PO DAILYP PRN PRN Reason: Constipation Last Admin: 09/20/18 14:06 Dose: 10 gm Documented by: Lorazepam (Ativan) 0 mg IV Q4HP PRN; Protocol PRN Reason: Alcohol Withdrawal Lorazepam (Ativan) 1 mg IV Q6HP PRN PRN Reason: ANXIETY/SEDATION Last Admin: 09/20/18 20:21 Dose: 1 mg Documented by: Losartan Potassium (Cozaar) 50 mg PO DAILY [facility] Metoclopramide HCl (Reglan) 10 mg IV Q6HP PRN PRN Reason: Nausea And Vomiting Nicotine (Nicoderm) 21 mg TOPICAL DAILY@1000 [facility] Ondansetron HCl (Zofran) 4 mg IV Q4HP PRN PRN Reason: Nausea And Vomiting Polyethylene Glycol (Miralax) 17 gm PO DAILYP PRN PRN Reason: Constipation Potassium Chloride (Kdur) 40 meq PO ONCE PRN PRN Reason: Potssium is 3-3.5 Potassium Chloride (Kdur) 40 meq PO ONCE PRN PRN Reason: Potassium < 3 Promethazine HCl (Phenergan) 12.5 mg HI Q6HP PRN PRN Reason: Pain Senna (Senokot) 2 tab PO HSP PRN PRN Reason: Constipation Last Admin: 09/20/18 20:25 Dose: 2 tab Documented by: Sodium Biphosphate/Sodium Phosphate (Fleets Adult) 1 dose HI Q3DP PRN PRN Reason: Constipation Sodium Chloride (Saline Flush) 10 ml IV Q8 [facility] Last Admin: 09/21/18 05:40 Dose: 10 ml Documented by: Sodium Chloride (Sodium Chloride) 2 gm PO TID [facility] Stop: 09/22/18 09:01 Medical - PN: A/P - Time Spent With Patient Total time spent is greater than 50% in coordination of care (as documented) at patient's floor/unit and/or counseling patient: - Narrative A/P Narrative: A: *Hyponatremia, severe: 2/2 beer potomania and 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 -Acute on Chronic, but for purposes of treatment this is a chronic state -TSH ok, *N/V: 2/2 above *RUQ Abd pain: etiology likely fecal impaction and hepatic flexure, -CT abd with fecal impaction hepatic flexure, GB ok, fatty liver, no splenomegaly, pancreas ok, no obstruction.LFT's/lipase ok -no fever/jaundice to suspect cholangitis *Etoh Abuse in Withdrawal: *HTN: on losartan *Depression: *Fatty liver: 2/2 etoh *Tobacco abuse *COPD (not on home O2) *h/o Hep C, treated in past: *B12 Deficiency: P: -f/u BMP -Oral contrast AXR today -Full liquids -bowel regimen -CIWA/vitamin/benzo's - -Tobacco/alcohol cessation counseling -supp B12 -ppx: lovenox/pepcid Medical - PN: Qual - VTE Deep Vein Thrombosis/Pulmonary Embolism Present on Admission: No
[2018-09-21] MEDS ORDERED: THIAMINE 100 MG in 0.9 % SODIUM CHLORIDE 50 ML IV SCH (09:00)
[2018-09-21] MEDS ORDERED: SODIUM CHLORIDE 1 GM TABLET PO SCH (09:00)
[2018-09-21] MEDS: LOSARTAN 50 MG TABLET PO SCH (09:09)
[2018-09-21] MEDS: FOLIC ACID 1 MG TABLET PO SCH (09:13)
[2018-09-21] MEDS: CYANOCOBALAMIN (VITAMIN B-12) 500 MCG TABLET PO SCH (09:13)
[2018-09-21] MEDS: MULTIVIT,THER IRON,CA,FA & MIN 1 TABLET PO SCH (09:13)
[2018-09-21] MEDS: FAMOTIDINE/PF 20 MG/2 ML VIAL IV SCH ×2 (09:14→20:16)
[2018-09-21] MEDS: ENOXAPARIN 40 MG/0.4 ML SYRINGE SQ SCH (09:14)
[2018-09-21] MEDS: DEXTROSE 5% IN WATER 150 ML IV SCH ×3 (09:14→12:00)
[2018-09-21] MEDS: DOCUSATE SODIUM 100 MG CAPSULE PO SCH ×3 (09:14→20:25)
[2018-09-21] MEDS: NICOTINE 21 MG PATCH TOPICAL SCH (09:16)
[2018-09-21] MEDS ORDERED: DIATRIZOATE MEGLU/DIATRIZO SOD 30 ML BOTTLE PO ONE (10:06)
--- NOTE | 2018-09-21 10:13 | XRay Report ---
CLINICAL INFORMATION: ? Abdominal pain and distention. Evaluate for hepatic flexure fecal impaction. COMPARISON: Abdomen and pelvic CT from 09/19/2018 TECHNIQUE: Water-soluble enteric contrast was administered and serial abdominal x-rays were obtained of the stomach, small and large bowel over the course of 40 minutes. Small bowel transit time is less than 30 minutes. The entire GI transit time is 40 minutes. FINDINGS: The stomach, small and large bowel are normal in contour and caliber without focal lesion. The impacted stool, seen on CT two days prior, has cleared. There is no evidence of colonic obstruction IMPRESSION: Normal exam. Interval clearance of fecal impaction at the hepatic flexure since the CT days ago Interpreted and Authenticated by: Noah Kasper 09/21/18
[2018-09-21] MEDS: LORazepam 2 MG/ML VIAL IV PRN ×2 (11:33→20:16)
--- NOTE | 2018-09-21 11:39 | Discharge Summary ---
Medical - DS: Prov Patient information: Note initiated : 09/21/18 at 11:36 am Service Date, if different from initiated Date: [] Patient: Dany Marrero 63 y/o M admitted on 09/19/18 for RUQ Abdominal Pain x2 Weeks. Chief Complaint: [] Date of admission: 09/19/18 21:44 Consults: 09/19/18 Consult to Physician [CONS] Stat Comment: Consulting Provider: Ezra العراقي Reason For Exam: Physician to Consult Medical - DS: Meds - Discharge Medications Prescriptions: Cyanocobalamin (Vitamin B-12) [Vitamin B-12] 1,000 mcg SL DAILY #30 tablet Folic Acid 1 mg PO DAILY #30 tablet Thiamine [Vitamin B1] 100 mg PO DAILY #30 tablet Active and Home Medications: Home Medications Losartan [Cozaar] 50 mg PO DAILY 02/13/18 [History Confirmed 09/19/18 Last Taken 09/19/18 08:00] Home Medications Losartan [Cozaar] 50 mg PO DAILY 02/13/18 [History Confirmed 09/19/18 Last Taken 09/19/18 08:00] Cyanocobalamin (Vitamin B-12) [Vitamin B-12] 1,000 mcg SL DAILY #30 tablet 09/21/18 [Rx Last Taken Unknown] Folic Acid 1 mg PO DAILY #30 tablet 09/21/18 [Rx Last Taken Unknown] Thiamine [Vitamin B1] 100 mg PO DAILY #30 tablet 09/21/18 [Rx Last Taken Unknown] Medical - DS: Hosp Hospital course: Mr. Marrero is a 63 year old M Mr. Marrero is a 63 year old M right upper quadrant pain. Patient states he has had abdominal pain for 2-3 weeks. Does not recall how it started or the circumstances around when he first experienced it. He describes it as a sharp pain nonradiating made worse by movement better by laying down. He went to the [place] and he said the plan was to do a abdominal ultrasound which has not been done yet. Came in today because he has had nausea vomiting for 4 days is been unable to keep anything down. He states he has a small appetite typical eating a hotdog and piece of bread. He drinks alcohol 6-12 beers per day. He states he is cut down he is to be 30 beers per day 7 months ago. He states he thinks his last bowel movement was this morning was soft, no recent diarrhea. But has had nausea vomiting as previously mentioned past 4 days unable to keep anything down including his alcohol today. He last had a beer 1230 but vomited it back up. Per notes he did have a seizure in the past related to alcohol withdrawal. He was able to tell the ER that he was having some withdrawal. In the ED had extensive workup. His sodium was found to 116 with a mildly elevated lactate at 2.2. No signs of infection. Urinalysis with ketones abdominal x-ray ultrasound and CT to try to delineate the Cause and source of this pain. Abdominal ultrasound with fatty liver. Gallbladder unremarkable. The CT abdomen per ED physician, no official report yet. But no acute findings other than what appeared to be some stool impacted in the colon. But otherwise no pancreatitis or other source of the pain. 09/20 States he has had abdominal pain but better. And overall he feels better. He has a dry cough no headaches fever chills no chest pain. On D5 water follow-up sodium pending as we are stalling the sodium correction at this time. Better CIWA scores this morning. 09/21 Poor sleep last night. Still has some abdominal discomfort on the right. No mention of cough today or headaches no other new complaints. Last BM was a small loose stool yesterday otherwise no real BM. Discharge diagnosis: Hyponatremia abdominal pain alcohol abuse with withdrawal hypertension depr - Time Spent with Patient Total time spent providing and/or coordinating discharge services: Greater than 30 minutes Medical - DS: Exam - Constitutional Vitals: Vital Signs Temp Pulse Resp BP Pulse Ox 09/21/18 07:07 98.2 F 18 124/65 97 09/21/18 03:30 98.0 F 18 125/84 96 09/21/18 00:01 99.0 F 20 136/91 95 09/20/18 20:01 99.1 F H 18 174/85 97 09/20/18 16:01 98.5 F 18 130/95 97 09/20/18 12:01 98.3 F 78 18 118/67 98 Intake and Output 09/20/18 09/21/18 09/21/18 21:59 05:59 13:59 Intake Total 1170 600 441 Output Total 800 1201 900 Balance 083 -778 -515 Intake: IV 201 Dextrose 5% in Water 150 ml @ 150 100 mls/hr IV .Q1H30M [facility] Rx#: [id number] Vitamin B1 100 mg In Sodium 51 Chloride 0.9% 50 ml @ 50 mls/hr IV DAILY [facility] Rx#:[id number] Oral 1170 600 240 Output: Void Amount 800 1200 550 # of times incontinent of urine 1 Urine/Stool Mix 350 Other: Meal Dinner Percent of Meal Consumed 100% Feeding Ability Assist with Tray Set Up Urine Appearance Cloudy Clear Urine Color Bright Yellow Bright Yellow Urine Odor Strong Strong Stool Size Moderate Stool Color Brown Stool Consistency Liquid Weight 86.682 kg Medical - DS: Data Labs on day of discharge: Labs from last 24 hours 09/21/18 09/20/18 09/20/18 03:58 20:08 15:15 Sodium 128 L 122 L 121 L Potassium 4.1 3.9 4.1 Chloride 95 L 89 L 89 L Carbon Dioxide 24 24 24 Anion Gap 9.0 9.0 8.0 BUN 4 L 4 L 5 L Creatinine 0.7 0.7 0.8 GFR Calculation 100 100 95 Glucose 86 90 90 Calcium 8.7 8.2 L 8.4 L 09/20/18 11:07 Sodium 120 L Potassium 4.0 Chloride 88 L Carbon Dioxide 24 Anion Gap 8.0 BUN 5 L Creatinine 0.7 GFR Calculation 100 Glucose 109 H Calcium 8.1 L Preliminary micro results at discharge 09/19/18 15:20 Blood Culture - Preliminary Blood 09/19/18 15:15 Blood Culture - Preliminary Blood Medical - DS: A/P - Patient/Caregiver Discharge Instructions Activity: increase activity as tolerated Diet: Regular Diet - Follow up Plan Disposition: Home, Self-Care Prognosis: Undetermined Rehab Potential: Fair Medical - DS: Qual - VTE Deep Vein Thrombosis/Pulmonary Embolism Present on Admission: No
[2018-09-21 13:06] LABS: Blood Urea Nitrogen 5 mg/dl (8-23)
[2018-09-21] MEDS: DEXTROSE 5% IN WATER 500 ML IV SCH ×3 (17:42→21:41)
[2018-09-21 19:00] LABS: Blood Urea Nitrogen 8 mg/dl (8-23)
[2018-09-21] MEDS ORDERED: NITROGLYCERIN 0.4 MG TAB.SUBL SL PRN (20:37)
[2018-09-21] MEDS ORDERED: ASPIRIN 81 MG TAB.CHEW CHEWED ONE (20:37)
[2018-09-21] MEDS ORDERED: NITROGLYCERIN 0.4 MG TAB.SUBL SL ONE (20:40)
[2018-09-21] MEDS ORDERED: ASPIRIN 325 MG ENTERIC COATED TABLET PO ONE (20:43)
[2018-09-21] MEDS ORDERED: 0.9 % SODIUM CHLORIDE 1,000 ML IV SCH (20:45)
[2018-09-21 21:18] LABS: Basophils # (Auto) 0 K/mcL (0.0-0.3); Basophils % (Auto) 0.3 % (0.0-2.0); Eosinophils # (Auto) 0.1 K/mcL (0.0-0.7); Eosinophils % (Auto) 1.2 % (0.0-7.0); Granulocytes % (Auto) 67.7 % (38.0-78.0); Lymphocytes # (Auto) 1.4 K/mcL (1.5-4.8); Lymphocytes % (Auto) 21.6 % (15.5-49.0); Mean Cell Volume 105.4 fL (80.0-100.0); Monocytes # (Auto) 0.6 K/mcL (0.1-0.9); Monocytes % (Auto) 9.2 % (1.0-12.0); Platelet Count 176 K/mcL (140-440); RBC 3.95 M/mcL (4.50-5.90); Red Cell Distribution Width 12.4 % (11.5-14.5)
[2018-09-21] MEDS: HYDROCHLOROTHIAZIDE 12.5 MG CAPSULE PO ONE ×2 (21:40→21:49)
[2018-09-21 21:41] LABS: ALT/SGPT 18 U/l (0-40); Albumin 3.8 gm/dL (3.2-5.2); Albumin/Globulin Ratio 1.4 (1.0-2.3); Alkaline Phosphatase 41 U/L (39-117); Blood Urea Nitrogen 9 mg/dl (8-23); Creatine Kinase 100 IU/L (24-195); Creatine Kinase MB 1.2 ng/ml (0-4.9)
[2018-09-22] MEDS: DEXTROSE 5% IN WATER 500 ML IV SCH ×3 (01:06→08:50)
[2018-09-22] MEDS: 0.9 % SODIUM CHLORIDE 10 ML SYRINGE IV SCH ×3 (04:44→21:28)
[2018-09-22 06:43] LABS: Blood Urea Nitrogen 7 mg/dl (8-23)
[2018-09-22] MEDS ORDERED: SODIUM CHLORIDE 1 GM TABLET PO ONE (06:55)
--- NOTE | 2018-09-22 06:59 | Internal Med Progress Note ---
Medical - PN: Subj Patient information: Note initiated : 09/22/18 at 6:57 am Service Date, if different from initiated Date: [] Patient: Dany Marrero 63 y/o M admitted on 09/19/18 for RUQ Abdominal Pain x2 Weeks. Chief Complaint: [] Interval history: Mr. Marrero is a 63 year old M right upper quadrant pain. Patient states he has had abdominal pain for 2-3 weeks. Does not recall how it started or the circumstances around when he first experienced it. He describes it as a sharp pain nonradiating made worse by movement better by laying down. He went to the [place] and he said the plan was to do a abdominal ultrasound which has not been done yet. Came in today because he has had nausea vomiting for 4 days is been unable to keep anything down. He states he has a small appetite typical eating a hotdog and piece of bread. He drinks alcohol 6-12 beers per day. He states he is cut down he is to be 30 beers per day 7 months ago. He states he thinks his last bowel movement was this morning was soft, no recent diarrhea. But has had nausea vomiting as previously mentioned past 4 days unable to keep anything down including his alcohol today. He last had a beer 1230 but vomited it back up. Per notes he d id have a seizure in the past related to alcohol withdrawal. He was able to tell the ER that he was having some withdrawal. In the ED had extensive workup. His sodium was found to 116 with a mildly elevated lactate at 2.2. No signs of infection. Urinalysis with ketones abdominal x-ray ultrasound and CT to try to delineate the Cause and source of this pain. Abdominal ultrasound with fatty liver. Gallbladder unremarkable. The CT abdomen per ED physician, no official report yet. But no acute findings other than what appeared to be some stool impacted in the colon. But otherwise no pancreatitis or other source of the pain. 09/20 States he has had abdominal pain but better. And overall he feels better. He has a dry cough no headaches fever chills no chest pain. On D5 water follow-up sodium pending as we are stalling the sodium correction at this time. Better CIWA scores this morning. 09/21 Poor sleep last night. Still has some abdominal discomfort on the right. No mention of cough today or headaches no other new complaints. Last BM was a small loose stool yesterday otherwise no real BM. 3 had atypical sharp left side chest pain last night and was given aspirin. on e xam left chest wall pain was reproducible on palpation, EKG unchanged. extra d5w bag given beyond intention. no other events. Review of Systems: chronic cough. denies headache/fever/chills/nausea/vomiting/chest pain/dyspnea. Otherwise see above. - Constitutional Vitals: Vital Signs Temp Pulse Resp BP Pulse Ox 97.9 F 78 20 138/86 93 09/22/18 03:11 09/22/18 03:11 09/22/18 03:11 09/22/18 03:11 09/22/18 03:11 Period Temp Pulse Resp BP Sys/See Pulse Ox Last 24 Hr 97.4 F-98.7 F 78-109 16-20 117-138/65-91 92-98 Intake and Output 09/21/18 09/22/18 09/22/18 21:59 05:59 13:59 Intake Total 750 1240 Output Total 400 950 Balance 350 290 Weight 82.781 kg Intake & Output: Intake & Output 09/21/18 09/22/18 09/22/18 21:59 05:59 13:59 Intake Total 750 1240 Output Total 400 950 Balance 350 290 Weight 82.781 kg Intake: IV 500 1000 Dextrose 5% in Water 500 ml @ 500 1000 150 mls/hr IV .Q3H20M [facility] Rx#: [id number] Oral 250 240 Output: Void Amount 400 950 Other: Meal Dinner Percent of Meal Consumed 100% Feeding Ability Independent Urine Color Bright Yellow Urine Odor Normal # Voids 1 1 Exam: General: Alert, Awake, No acute Distress Eyes/N/T: EOMI, , Head/Neck: neck supple, CV: RRR, No murmurs, Pulm: Clear b/l, no wheezing/rhonchi/rales Abd: soft, protuberant, +BS x4 Ext: no clubbing/cyanosis/edema Neuro: Alert, no focal deficits, moves all extremities, Skin: warm/dry Medical - PN: Obj Da - Labs CBC & Chem 7: 09/21/18 20:45 09/22/18 04:07 Labs: Abnormal Lab Results 09/22/18 09/21/18 09/21/18 04:07 20:45 20:45 RBC 3.95 L Hct MCV 105.4 H MCH 35.8 H MPV 7.2 L Lymph # (Auto) 1.4 L VBG Lactic Acid Sodium 126 L 127 L Chloride 93 L 95 L BUN 7 L Creatinine Glucose 110 H 115 H Osmolality Uric Acid Calcium 8.5 L Phosphorus Alkaline Phosphatase Lipase Folate Urine Ketones Ethyl Alcohol 09/21/18 09/21/18 09/21/18 17:35 12:13 03:58 RBC Hct MCV MCH MPV Lymph # (Auto) VBG Lactic Acid Sodium 130 L 130 L 128 L Chloride 95 L 95 L BUN 5 L 4 L Creatinine Glucose 129 H Osmolality Uric Acid Calcium Phosphorus Alkaline Phosphatase Lipase Folate Urine Ketones Ethyl Alcohol 09/20/18 09/20/18 09/20/18 20:08 15:15 11:07 RBC Hct MCV MCH MPV Lymph # (Auto) VBG Lactic Acid Sodium 122 L 121 L 120 L Chloride 89 L 89 L 88 L BUN 4 L 5 L 5 L Creatinine Glucose 109 H Osmolality Uric Acid Calcium 8.2 L 8.4 L 8.1 L Phosphorus Alkaline Phosphatase Lipase Folate Urine Ketones Ethyl Alcohol 09/20/18 09/20/18 09/19/18 03:54 03:54 21:00 RBC 3.85 L Hct 40.9 L MCV 106.2 H MCH 35.8 H MPV 7.2 L Lymph # (Auto) 1.1 L VBG Lactic Acid Sodium 123 L Chloride 92 L BUN 5 L Creatinine 0.6 L Glucose 106 H Osmolality Uric Acid Calcium 8.3 L Phosphorus 2.5 L Alkaline Phosphatase 36 L Lipase Folate Urine Ketones Ethyl Alcohol 09/19/18 09/19/18 09/19/18 21:00 20:52 19:34 RBC Hct MCV MCH MPV Lymph # (Auto) VBG Lactic Acid Sodium 123 L Chloride 88 L BUN 6 L Creatinine Glucose Osmolality 257 L Uric Acid 2.0 L Calcium 8.4 L Phosphorus Alkaline Phosphatase Lipase Folate > 20.0 H Urine Ketones 5/tr A Ethyl Alcohol 09/19/18 09/19/18 09/19/18 15:15 15:15 15:15 RBC Hct MCV MCH MPV Lymph # (Auto) VBG Lactic Acid 2.2 H Sodium Chloride BUN Creatinine Glucose Osmolality Uric Acid Calcium Phosphorus Alkaline Phosphatase Lipase 82 H Folate Urine Ketones Ethyl Alcohol 0.022 H 09/19/18 09/19/18 15:15 15:15 RBC 4.32 L Hct MCV 106.0 H MCH 35.2 H MPV 7.2 L Lymph # (Auto) 1.4 L VBG Lactic Acid Sodium 116 L* Chloride 81 L BUN 6 L Creatinine Glucose 107 H Osmolality Uric Acid Calcium Phosphorus Alkaline Phosphatase Lipase Folate Urine Ketones Ethyl Alcohol Meds: Medications Acetaminophen (Tylenol) 650 mg PO Q6HP PRN PRN Reason: PAIN/FEVER > 101 Albuterol/Ipratropium (Duoneb) 3 ml NEB Q4HP PRN PRN Reason: Shortness Of Breath Chlordiazepoxide HCl (Librium) 50 mg PO Q8HP PRN PRN Reason: Alcohol Withdrawal Last Admin: 09/20/18 22:37 Dose: 50 mg Documented by: Cyanocobalamin (Vitamin B-12) 1,000 mcg PO DAILY [facility] Last Admin: 09/21/18 09:13 Dose: 1,000 mcg Documented by: Docusate Sodium (Colace) 100 mg PO BID [facility] Last Admin: 09/21/18 20:25 Dose: Not Given Documented by: Enoxaparin Sodium (Lovenox) 40 mg SQ DAILY [facility] Last Admin: 09/21/18 09:14 Dose: 40 mg Documented by: Famotidine (Pepcid) 20 mg IV Q12 [facility] Last Admin: 09/21/18 20:16 Dose: 20 mg Documented by: Folic Acid (Folic Acid) 1 mg PO DAILY [facility] Last Admin: 09/21/18 09:13 Dose: 1 mg Documented by: Potassium Chloride 40 meq/ (Dextrose) 520 mls @ 130 mls/hr IV ONCE PRN PRN Reason: Potassium < 3 Magnesium Sulfate (Magnesium Sulfate) 2 gm in 50 mls @ 50 mls/hr IV ONCE PRN PRN Reason: Magnesium </= 1.6 Dextrose (Dextrose 5% In Water) 500 mls @ 150 mls/hr IV .Q3H20M [facility] Last Admin: 09/22/18 04:44 Dose: 150 mls/hr Documented by: Sodium Chloride (Sodium Chloride 0.9%) 1,000 mls @ 0 mls/hr IV .Q0M [facility] Iron Carb/Multivit/[place]/Folic Acid (Multivitamin W/Minerals) 1 tab PO DAILY [facility] Last Admin: 09/21/18 09:13 Dose: 1 tab Documented by: Lactulose (Cephulac) 10 gm PO DAILYP PRN PRN Reason: Constipation Last Admin: 09/20/18 14:06 Dose: 10 gm Documented by: Lorazepam (Ativan) 0 mg IV Q4HP PRN; Protocol PRN Reason: Alcohol Withdrawal Lorazepam (Ativan) 1 mg IV Q6HP PRN PRN Reason: ANXIETY/SEDATION Last Admin: 09/21/18 20:16 Dose: 1 mg Documented by: Losartan Potassium (Cozaar) 50 mg PO DAILY [facility] Last Admin: 09/21/18 09:09 Dose: 50 mg Documented by: Metoclopramide HCl (Reglan) 10 mg IV Q6HP PRN PRN Reason: Nausea And Vomiting Nicotine (Nicoderm) 21 mg TOPICAL DAILY@1000 [facility] Last Admin: 09/21/18 09:16 Dose: 21 mg Documented by: Nitroglycerin (Nitrostat) 0.4 mg SL Q5M PRN PRN Reason: Chest Pain Ondansetron HCl (Zofran) 4 mg IV Q4HP PRN PRN Reason: Nausea And Vomiting Last Admin: 09/22/18 03:13 Dose: 4 mg Documented by: Polyethylene Glycol (Miralax) 17 gm PO DAILYP PRN PRN Reason: Constipation Potassium Chloride (Kdur) 40 meq PO ONCE PRN PRN Reason: Potssium is 3-3.5 Potassium Chloride (Kdur) 40 meq PO ONCE PRN PRN Reason: Potassium < 3 Promethazine HCl (Phenergan) 12.5 mg WI Q6HP PRN PRN Reason: Pain Senna (Senokot) 2 tab PO HSP PRN PRN Reason: Constipation Last Admin: 09/20/18 20:25 Dose: 2 tab Documented by: Sodium Biphosphate/Sodium Phosphate (Fleets Adult) 1 dose WI Q3DP PRN PRN Reason: Constipation Sodium Chloride (Saline Flush) 10 ml IV Q8 [facility] Last Admin: 09/22/18 04:44 Dose: Not Given Documented by: Thiamine HCl (Vitamin B1) 100 mg PO DAILY [facility] Medical - PN: A/P - Time Spent With Patient Total time spent is greater than 50% in coordination of care (as documented) at patient's floor/unit and/or counseling patient: - Narrative A/P Narrative: A: *Hyponatremia, severe: 2/2 beer potomania and 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 *Etoh Abuse in Withdrawal: *HTN: on losartan *Depression: *Fatty liver: 2/2 etoh *Tobacco abuse: *COPD (not on home O2) *h/o Hep C, treated in past: *B12 Deficiency: P: -f/u BMP -bowel regimen -CIWA/vitamin/benzo's - -Tobacco/alcohol cessation counseling -supp B12 -ppx: lovenox/pepcid d/c planning Medical - PN: Qual - VTE Deep Vein Thrombosis/Pulmonary Embolism Present on Admission: No
[2018-09-22] MEDS: ENOXAPARIN 40 MG/0.4 ML SYRINGE SQ SCH (09:00)
[2018-09-22] MEDS: CYANOCOBALAMIN (VITAMIN B-12) 500 MCG TABLET PO SCH (09:01)
[2018-09-22] MEDS: LOSARTAN 50 MG TABLET PO SCH (09:01)
[2018-09-22] MEDS: DOCUSATE SODIUM 100 MG CAPSULE PO SCH ×2 (09:01→21:22)
[2018-09-22] MEDS: FOLIC ACID 1 MG TABLET PO SCH (09:02)
[2018-09-22] MEDS: MULTIVIT,THER IRON,CA,FA & MIN 1 TABLET PO SCH (09:02)
[2018-09-22] MEDS: FAMOTIDINE/PF 20 MG/2 ML VIAL IV SCH ×2 (09:02→21:28)
[2018-09-22] MEDS: SODIUM CHLORIDE 1 GM TABLET PO SCH ×3 (09:02→21:28)
[2018-09-22] MEDS: THIAMINE 100 MG TABLET PO SCH (09:02)
[2018-09-22] MEDS: NICOTINE 21 MG PATCH TOPICAL SCH (09:13)
[2018-09-22] MEDS: LORazepam 2 MG/ML VIAL IV PRN ×4 (09:43→19:25)
[2018-09-22 13:02] LABS: Blood Urea Nitrogen 6 mg/dl (8-23)
[2018-09-22] MEDS ORDERED: FUROSEMIDE 20 MG/2 ML VIAL IV ONE (13:19)
[2018-09-22 18:49] LABS: Blood Urea Nitrogen 7 mg/dl (8-23)
[2018-09-22] MEDS: chlordiazePOXIDE 25 MG CAPSULE PO PRN (21:21)
[2018-09-23] MEDS: LORazepam 2 MG/ML VIAL IV PRN ×3 (04:27→11:35)
[2018-09-23 05:41] LABS: Mean Cell Volume 105.8 fL (80.0-100.0); Mean Corpuscular HGB Conc 33.2 g/dL (31.0-36.0); Platelet Count 203 K/mcL (140-440); RBC 4.32 M/mcL (4.50-5.90); Red Cell Distribution Width 12.4 % (11.5-14.5)
[2018-09-23 06:10] LABS: ALT/SGPT 21 U/l (0-40); Albumin/Globulin Ratio 1.2 (1.0-2.3); Alkaline Phosphatase 50 U/L (39-117); Bilirubin,Direct < 0.2 mg/dL (0.0-0.3); Blood Urea Nitrogen 9 mg/dl (8-23); Gamma Glutamyl Transpeptidase 38 U/L (8-61); Uric Acid 4.5 mg/dL (2.5-8.0)
[2018-09-23 06:26] LABS: Band Neutrophils % 7 % (0-10); Basophils % (Manual) 1 % (0-2); Eosinophils % (Manual) 2 % (0-7); Lymphocytes % 25 % (15-49); Macrocytosis 2+ (NONE SEEN); Monocytes % (Manual) 4 % (1-12); Platelet Estimate NORMAL (NORMAL); RBC Morphology ABNORM (NORMAL); Segmented Neutrophils % 61 % (38-78)
[2018-09-23] MEDS: CYANOCOBALAMIN (VITAMIN B-12) 500 MCG TABLET PO SCH (08:08)
[2018-09-23] MEDS: FOLIC ACID 1 MG TABLET PO SCH (08:09)
[2018-09-23] MEDS: SODIUM CHLORIDE 1 GM TABLET PO SCH ×2 (08:09→15:51)
[2018-09-23] MEDS: MULTIVIT,THER IRON,CA,FA & MIN 1 TABLET PO SCH (08:09)
[2018-09-23] MEDS: THIAMINE 100 MG TABLET PO SCH (08:09)
[2018-09-23] MEDS: LOSARTAN 50 MG TABLET PO SCH (08:09)
[2018-09-23] MEDS: ENOXAPARIN 40 MG/0.4 ML SYRINGE SQ SCH (08:10)
[2018-09-23] MEDS: FAMOTIDINE/PF 20 MG/2 ML VIAL IV SCH (08:10)
[2018-09-23] MEDS: DOCUSATE SODIUM 100 MG CAPSULE PO SCH (08:10)
[2018-09-23] MEDS: 0.9 % SODIUM CHLORIDE 10 ML SYRINGE IV SCH ×3 (08:11→15:52)
[2018-09-23] MEDS: chlordiazePOXIDE 25 MG CAPSULE PO PRN (08:18)
--- NOTE | 2018-09-23 12:01 | Discharge Summary ---
Medical - DS: Prov Patient information: Note initiated : 09/23/18 at 11:58 am Service Date, if different from initiated Date: [] Patient: Dany Marrero 63 y/o M admitted on 09/19/18 for RUQ Abdominal Pain x2 Weeks. Chief Complaint: [] Date of admission: 09/19/18 21:44 Discharge date: 09/23/18 Consults: 09/19/18 Consult to Physician [CONS] Stat Comment: Consulting Provider: Ezra العراقي Reason For Exam: Physician to Consult Medical - DS: Meds - Discharge Medications Prescriptions: Cyanocobalamin (Vitamin B-12) [Vitamin B-12] 1,000 mcg SL DAILY #30 tab Folic Acid 1 mg PO DAILY #30 tab Losartan [Cozaar] 50 mg PO DAILY #30 tablet Thiamine [Vitamin B1] 100 mg PO DAILY #30 tab Active and Home Medications: Home Medications Cyanocobalamin (Vitamin B-12) [Vitamin B-12] 1,000 mcg SL DAILY #30 tab 09/21/18 [Rx Last Taken Unknown] Folic Acid 1 mg PO DAILY #30 tab 09/21/18 [Rx Last Taken Unknown] Thiamine [Vitamin B1] 100 mg PO DAILY #30 tab 09/21/18 [Rx Last Taken Unknown] Losartan [Cozaar] 50 mg PO DAILY #30 tablet 09/23/18 [Rx Last Taken Unknown] Medical - DS: Hosp Hospital course: Discharge diagnoses * Hypovolemic hyponatremia secondary to excessive alcoholism. Sodium improved 126. Patient requesting discharge. Advised to continue regular diet * Nausea vomiting-clinically resolved * Right upper quadrant pain secondary to fecal impaction clinically resolved * Alcohol abuse-counseled for cessation however likely patient would fall back on alcohol * History of hypertension-on losartan * History of COPD not on home oxygen * Prior history of hepatitis C treated * Tobacco abuse Brief hospital course Mr. Marrero is a 63 year old M right upper quadrant pain. Patient states he has had abdominal pain for 2-3 weeks. Does not recall how it started or the circumstances around when he first experienced it. He describes it as a sharp pain nonradiating made worse by movement better by laying down. He went to the [place] and he said the plan was to do a abdominal ultrasound which has not been done yet. Came in today because he has had nausea vomiting for 4 days is been unable to keep anything down. He states he has a small appetite typical eating a hotdog and piece of bread. He drinks alcohol 6-12 beers per day. He states he is cut down he is to be 30 beers per day 7 months ago. He states he thinks his last bowel movement was this morning was soft, no recent diarrhea. But has had nausea vomiting as previously mentioned past 4 days unable to keep anything down including his alcohol today. He last had a beer 1230 but vomited it back up. Per notes he did have a seizure in the past related to alcohol withdrawal. He was able to tell the ER that he was having some withdrawal. In the ED had extensive workup. His sodium was found to 116 with a mildly elevated lactate at 2.2. No signs of infection. Urinalysis with ketones abdominal x-ray ultrasound and CT to try to delineate the Cause and source of this pain. Abdominal ultrasound with fatty liver. Gallbladder unremarkable. The CT abdomen per ED physician, no official report yet. But no acute findings other than what appeared to be some stool impacted in the colon. But otherwise no pancreatitis or other source of the pain. 09/20 States he has had abdominal pain but better. And overall he feels better. He has a dry cough no headaches fever chills no chest pain. On D5 water follow-up sodium pending as we are stalling the sodium correction at this time. Better CIWA scores this morning. 09/21 Poor sleep last night. Still has some abdominal discomfort on the right. No mention of cough today or headaches no other new complaints. Last BM was a small loose stool yesterday otherwise no real BM. 09/22 had atypical sharp left side chest pain last night and was given aspirin. on exam left chest wall pain was reproducible on palpation, EKG unchanged. extra d5w bag given beyond intention. no other events. 09/23-patient requesting discharge. Explain sodium not quite urine normal however he feels at baseline would want to be discharge right away. Advised to return to ER if worsening symptoms. Advised to refrain from alcohol use. Discharge instructions as below Discharge diagnosis: . - Time Spent with Patient Total time spent providing and/or coordinating discharge services: Greater than 30 minutes Medical - DS: Exam - Constitutional Vitals: Vital Signs Temp Pulse Pulse Resp BP BP Pulse Ox 09/23/18 11:00 97.6 F 20 136/78 95 09/23/18 06:31 97.9 F 20 127/83 94 09/23/18 03:00 97.9 F 95 H 18 109/70 94 09/22/18 20:37 97 09/22/18 20:00 120 H 09/22/18 19:00 98.1 F 120 H 28 H 90/50 95 09/22/18 15:00 98.5 F 20 112/73 93 Intake and Output 09/22/18 09/23/18 09/23/18 21:59 05:59 13:59 Intake Total 120 400 Balance 120 400 Intake: Oral 120 400 Other: # Voids 2 1 Weight 176 lb Medical - DS: Data Labs on day of discharge: Labs from last 24 hours 09/23/18 09/23/18 09/22/18 04:10 04:10 18:05 WBC 8.2 RBC 4.32 L Hgb 15.1 Hct 45.7 MCV 105.8 H MCH 35.1 H MCHC 33.2 RDW 12.4 Plt Count 203 MPV 7.6 Total Counted 100 Seg Neutrophils % 61 Band Neutrophils % 7 Lymphocytes % 25 Monocytes % (Manual) 4 Eosinophils % (Manual) 2 Basophils % (Manual) 1 Platelet Estimate Normal RBC Morphology Abnorm A Macrocytosis 2+ A Sodium 126 L 126 L Potassium 3.7 4.1 Chloride 91 L 89 L Carbon Dioxide 24 24 Anion Gap 11.0 13.0 BUN 9 7 L Creatinine 0.9 1.0 GFR Calculation 91 80 Glucose 102 158 H Uric Acid 4.5 Calcium 9.3 9.9 Phosphorus 3.9 Magnesium 2.1 Total Bilirubin 0.8 Direct Bilirubin < 0.2 GGT 38 AST 20 ALT 21 Alkaline Phosphatase 50 Lactate Dehydrogenase 176 Total Protein 7.3 Albumin 4.0 Globulin 3.3 Albumin/Globulin Ratio 1.2 Triglycerides 44 09/22/18 12:06 WBC RBC Hgb Hct MCV MCH MCHC RDW Plt Count MPV Total Counted Seg Neutrophils % Band Neutrophils % Lymphocytes % Monocytes % (Manual) Eosinophils % (Manual) Basophils % (Manual) Platelet Estimate RBC Morphology Macrocytosis Sodium 123 L Potassium 3.9 Chloride 88 L Carbon Dioxide 25 Anion Gap 10.0 BUN 6 L Creatinine 0.7 GFR Calculation 100 Glucose 108 H Uric Acid Calcium 9.1 Phosphorus Magnesium Total Bilirubin Direct Bilirubin GGT AST ALT Alkaline Phosphatase Lactate Dehydrogenase Total Protein Albumin Globulin Albumin/Globulin Ratio Triglycerides Preliminary micro results at discharge 09/19/18 15:20 Blood Culture - Preliminary Blood 09/19/18 15:15 Blood Culture - Preliminary Blood Medical - DS: A/P - Patient/Caregiver Discharge Instructions Activity: resume usual activities as tolerated Diet: Regular Diet Additional Instructions: Refrain from alcohol use Return to ER if worsening lightheadedness dizziness nausea vomiting or confusion Prescriptions: Cyanocobalamin (Vitamin B-12) [Vitamin B-12] 1,000 mcg SL DAILY #30 tab Folic Acid 1 mg PO DAILY #30 tab Losartan [Cozaar] 50 mg PO DAILY #30 tablet Thiamine [Vitamin B1] 100 mg PO DAILY #30 tab - Follow up Plan Follow up with: Rc Pabon ARNP [Adv Reg Nurse Practitioner] - 09/28/18 1:30 pm Disposition: Home, Self-Care Prognosis: Undetermined Rehab Potential: Fair I certify that the patient requires SNF services: No Overall status at discharge: patient is progressing back to baseline Medical - DS: Qual - VTE Deep Vein Thrombosis/Pulmonary Embolism Present on Admission: No
[2018-09-23] MEDS: NICOTINE 21 MG PATCH TOPICAL SCH (15:52)
== END 2018-09-23 17:09 | disposition home or self-care (01) | DRG 641 ==
LOC: ED 14:57 → ICU 21:44 → MEDSUR 09-21 16:20
PROVIDERS: ADMIT Internal Medicine; ATTEND Internal Medicine

== ENCOUNTER 2021-10-27 21:37 | Inpatient (IN) ==
--- NOTE | 2021-10-27 21:42 | Emergency Department Note ---
HPI General Chief complaint: Recheck/Abnormal Lab/Rx Stated complaint: Low Sodium Time Seen by Provider: 10/27/21 21:39 Source: patient Mode of arrival: ambulatory Limitations: no limitations History of Present Illness HPI Narrative: Patient sent after outpatient laboratory testing performed found to be hyponatremic, states has been unsteady recently. Does admit to consuming 20-25 beers daily. Has had long history of alcohol dependence and has had withdrawal symptoms in the past. Denies any seizure activity striking head or losing consciousness. Denies ever being treated for hyponatremia in the past. Patient denies current CP, sob, fever, chills, abdominal pain, n/v/d/c, focal acute weakness, loss/change of sensation, or any other complaints at this time. PMH/PSHx/Meds/Allergies/SH/FH as per nursing documentation and reviewed. A full 10 point review of systems reviewed and negative except as noted in HPI. Related Data Home Medications Medication Instructions Recorded Confirmed aspirin 81 mg PO DAILY 09/08/20 10/28/21 losartan 25 mg PO BID 09/08/20 10/28/21 mirtazapine 15 mg PO QDAY 09/08/20 10/28/21 atorvastatin 40 mg tablet 40 mg PO QHS 10/28/21 10/28/21 cholecalciferol (vitamin D3) 50 50 mcg PO DAILY 10/28/21 10/28/21 mcg (2,000 unit) tablet diphenhydramine HCl 25 mg capsule 25 mg PO HSP PRN 10/28/21 10/28/21 escitalopram oxalate 20 mg tablet 20 mg PO QDAY 10/28/21 10/28/21 hydroxyzine HCl 25 mg tablet 25 - 50 mg PO BID PRN 10/28/21 10/28/21 magnesium oxide 400 mg PO BID 10/28/21 10/28/21 Allergies Allergy/AdvReac Type Severity Reaction Status Date / Time penicillin V [From Pen-Vee K] Allergy Severe Anaphylaxis Verified 10/27/21 21:40 Review of Systems ROS ROS Narrative: Per HPI PFSH Narrative Patient History Narrative: Narrative: Medical/Surgical/Family History All Active Problems (Updated 10/29/21 @ 10:01 by Nikita Steiner DO) Curvature of the penis (Chronic) Macrocytosis (Chronic) Alcohol abuse, continuous drinking behavior (Chronic) COPD (chronic obstructive pulmonary disease) (Chronic) Depression (Chronic) Anxiety (Chronic) Erectile dysfunction (Chronic) Urinary urgency (Chronic) History of pancreatitis (Chronic) Hypertension, essential (Chronic) Cigarette smoker (Chronic) BPH (benign prostatic hyperplasia) (Chronic) Hyponatremia (Chronic) Tremulousness (Chronic) ASHD (arteriosclerotic heart disease) (Chronic) Degenerative disc disease, lumbar (Chronic) Post traumatic stress disorder (PTSD) (Chronic) Nausea, vomiting and diarrhea (Acute) Macrocytosis (Chronic) Chronic hyponatremia (Chronic) Hypocalcemia (Acute) Hypokalemia (Acute) Elevated LFTs (Acute) Alcoholism, chronic (Chronic) Hyperbilirubinemia (Acute) Alcoholic intoxication (Acute) Hypocalcemia (Acute) Elevated LFTs (Acute) Anemia, macrocytic (Acute) Depression (Acute) Chest pain (Acute) Alcohol abuse (Acute) Chronic post-traumatic stress disorder (Acute) Chest pain (Acute) Pneumonia (Acute) Wernicke-Korsakoff syndrome (alcoholic) (Chronic) Hyponatremia (Acute) Alcohol dependence (Acute) Medical History Alcohol abuse, continuous drinking behavior Alcohol intoxication Alcohol intoxication Anxiety ASHD (arteriosclerotic heart disease) seen on CT scan of abdomen 09-19-18 BPH (benign prostatic hyperplasia) Chest pain Cigarette smoker COPD (chronic obstructive pulmonary disease) Curvature of the penis Degenerative disc disease, lumbar seen on CT abdomen 09-19-2018 Depression Drug overdose Erectile dysfunction Fatigue History of hepatitis C treated and cured History of pancreatitis History of suicide attempt Hypertension, essential Hyponatremia Macrocytosis Post traumatic stress disorder (PTSD) Sciatica Suicidal ideation Tremulousness Urinary urgency Surgical History History of appendectomy History of back surgery History of photovaporization of prostate Family History Father CHF (congestive heart failure) Mother CHF (congestive heart failure) Social History Smoking Status: Current every day smoker Alcohol Intake Frequency: 2+ drinks per day (Heavy daily drinking; 20-30 beer per day (03/18/2020)) Substance Use: does not use Exam Narrative Narrative: PHYSICIAL EXAM: Vitals reviewed GENERAL: Awake alert in bed, no acute distress,The patient appears nourished and normally developed. Vital signs as documented. EYES: Head exam is unremarkable. No scleral icterus no nystagmus no gaze preference face symmetric no droop Pupils equal round reactive bilaterally, EOMI grossly intact HEENT: Mucous membranes moist. Nares patent without copious rhinorrhea. No evidence of trauma to tongue LUNGS: Lungs are clear to auscultation, -r/r/w without any respiratory distress. CARDIAC: Rhythm is regular. No dysrhythmias or murmurs. ABDOMEN: Soft, non-tender, non-distended, no rebound/guarding, with no obvious masses EXTREMITIES: No peripheral edema, with no obvious deformities. SKIN: Good color, with no significant rashes. No pallor. NEURO: No obvious neurological deficits, normal sensation and strength bilaterally. NIH 0, not acutely tremulous no seizure-like activity General Limitations: no limitations Course Reevaluation(s) Reevaluation #1: spoke with nephrology preparation supervisor canning, suggest adding normal saline at 100 mL/h, keep npo. monitor electrolytes every 6 hours admit to ICU Time: 22:47 Reevaluation #2: Patient main sleeping comfortably in bed being transported ICU Time: 00:32 Vital Signs Vital signs: Vital Signs Temperature 97.0 F 10/27/21 21:38 Pulse Rate 94 H 10/27/21 21:38 Respiratory Rate 18 10/27/21 21:38 Blood Pressure 148/89 10/27/21 21:38 Pulse Oximetry (%) 95 10/27/21 21:38 Temperature 97.6 F 10/29/21 08:01 Pulse Rate 98 H 10/29/21 08:31 Respiratory Rate 15 10/29/21 08:31 Blood Pressure 154/116 10/29/21 08:01 Pulse Oximetry (%) 94 10/29/21 08:31 [facility] MDM Narrative Medical decision making narrative: All results/imaging obtained reviewed and interpreted, results trended/compared with previous levels if available to evaluate for abnormality contributing to todays presentation, After reviewing patients comorbidities, severity of history of presenting illness, labs and imaging if obtained in conjunction with physical exam and course in emergency department, deemed to have potential for deterioration/progression of symptoms that could lead to multiple morbidities or mortality, decision made that patient requires further observation/evaluation/treatment and patient admitted to appropriate service, patient/family understand and agree with plan. Chart created with voice recognition software, errors may be present due to softwares interpretation Lab Data Result diagrams: 10/28/21 05:24 10/29/21 05:30 Labs: Lab Results 10/27/21 10/27/21 10/27/21 Range/Units 21:50 21:50 21:50 POC Hct 53 (41-55) % POC Sodium 117 L* (133-145) mEq/L POC Potassium 4.1 (3.3-5.1) mEql/L POC Chloride 83 L (96-108) mEq/L POC Total CO2 21 L (22-30) mmol/L POC BUN < 3 L mg/dL POC Creatinine 0.8 (0.6-1.2) mg/dL POC Glucose 88 (70-105) mg/dL Osmolality 283 (280-300) mOSM/kg POC WB Ioniz Calcium 1.01 L (1.16-1.32) mmEq/L Magnesium 2.0 (1.6-2.5) mg/dL Troponin T < 0.01 (<0.03) ng/mL Urine Color Urine Appearance (Clear) Urine pH (5.0-9.0) Ur Specific [place] (1.000-1.035) Urine Protein (Negative) mg/dL Urine Glucose (UA) (Negative) mg/dL Urine Ketones (Negative) mg/dL Urine Occult Blood (Negative) mg/dL Urine Nitrate (Negative) Urine Bilirubin (Negative) mg/dL Urine Urobilinogen mg/dL Ur Leukocyte Esterase (Negative) /uL Urine RBC (0-3) /hpf Urine WBC (0-4) /hpf Ur Squamous Epith Cells (0-4) /hpf Urine Bacteria (0) /hpf Ur Culture Indicated? Urine Osmolality (80-1000) mOSM/kg Ur Random Creatinine (39.0-259.0) mg/dL Ur Random Sodium mmol/L Ethyl Alcohol 0.172 H (<0.010) gm/dL 10/27/21 10/27/21 10/27/21 Range/Units 22:50 22:50 22:50 POC Hct (41-55) % POC Sodium (133-145) mEq/L POC Potassium (3.3-5.1) mEql/L POC Chloride (96-108) mEq/L POC Total CO2 (22-30) mmol/L POC BUN mg/dL POC Creatinine (0.6-1.2) mg/dL POC Glucose (70-105) mg/dL Osmolality (280-300) mOSM/kg POC WB Ioniz Calcium (1.16-1.32) mmEq/L Magnesium (1.6-2.5) mg/dL Troponin T (<0.03) ng/mL Urine Color Yellow Urine Appearance Hazy A (Clear) Urine pH 6.0 (5.0-9.0) Ur Specific [place] 1.003 (1.000-1.035) Urine Protein Negative (Negative) mg/dL Urine Glucose (UA) Negative (Negative) mg/dL Urine Ketones Negative (Negative) mg/dL Urine Occult Blood 0.03 (Negative) mg/dL Urine Nitrate Negative (Negative) Urine Bilirubin Negative (Negative) mg/dL Urine Urobilinogen Negative mg/dL Ur Leukocyte Esterase Negative (Negative) /uL Urine RBC < 1 (0-3) /hpf Urine WBC < 1 (0-4) /hpf Ur Squamous Epith Cells 0 (0-4) /hpf Urine Bacteria None (0) /hpf Ur Culture Indicated? No Urine Osmolality 145 (80-1000) mOSM/kg Ur Random Creatinine 28.2 L (39.0-259.0) mg/dL Ur Random Sodium 11 mmol/L Ethyl Alcohol (<0.010) gm/dL ED POC Tests ED POC Tests: RADHA - SARS Antigen Negative Discharge Plan Patient/Caregiver Discharge Instructions Pt seen by CLOCK REPAIR TECHNICIAN/PA only: No Clinical Impression: Hyponatremia, Alcohol dependence Patient Disposition: Xfer As Inpt ([facility]) Discharge Date/Time: 10/28/21 00:31
[2021-10-27] MEDS ORDERED: MAGNESIUM SULFATE 8.12 MEQ in DEXTROSE 5% IN WATER 50 ML IV ONE ×2 (21:55→21:56)
[2021-10-27] MEDS ORDERED: MAGNESIUM SULFATE 2 GM/50 ML BAG IV ONE (22:03)
[2021-10-27 22:05] LABS: POC Creatinine 0.8 mg/dL (0.6-1.2)
[2021-10-27 22:14] LABS: POC Blood Urea Nitrogen < 3 mg/dL; POC CO2 21 mmol/L (22-30); POC Calcium, Ionized 1.01 mmEq/L (1.16-1.32); POC Chloride 83 mEq/L (96-108); POC Glucose, Random 88 mg/dL (70-105); POC Hematocrit 53 % (41-55); POC Potassium 4.1 mEql/L (3.3-5.1); POC Sodium 117 mEq/L (133-145)
[2021-10-27] MEDS ORDERED: LORazepam 2 MG/ML VIAL IV ONE (22:43)
[2021-10-27 22:58] LABS: Alcohol,Blood 0.172 gm/dL (<0.010)
[2021-10-27 23:33] LABS: Appearance,Urine HAZY (Clear); Bilirubin,Urine Negative (Negative); Color,Urine YELLOW; Culture Indicated,Urine No; Glucose,Urine (UA) Negative (Negative); Ketones,Urine Negative (Negative); Leukocyte Esterase,Urine Negative /uL (Negative); Nitrate,Urine Negative (Negative); Protein,Urine Negative (Negative); Specific Gravity,Urine 1.003 (1.000-1.035); Urine Blood 0.03 mg/dL (Negative); Urine RBC < 1 /hpf (0-3); Urine Squamous Epithelial Cell 0 /hpf (0-4); Urine WBC < 1 /hpf (0-4); Urobilinogen,Urine Negative
--- NOTE | 2021-10-27 23:35 | Event Note ---
Event Note Event Note: Called by ED concerning patient referred from another medical facility to recck abnormal labs. I'm told he drove himself here and presented with stable VS and multilpe lab abnormalites as follows: Impression: Chronic hyponatremia with excess free H2O intake and submaximal (impaired) free H2O excretion Beer potomania likely Protein calorie depletion Acute/chronic EtOH intoxication OSMOLAR GAP IS ONLY 3 TO 5 SO NO concern fo MeOH or Ethylene glycol Recommend: Q 6 hr electrolytes NPO except meds with Boost in place of H2O to minimize free H2O intake NS (with MVI, folate, Thiamine in first bag) at 100 cc/hr Further recommendations to follow.
[2021-10-27 23:44] LABS: Creatinine,Urine Random 28.2 mg/dL (39.0-259.0)
--- NOTE | 2021-10-27 23:45 | Internal Med History&Physical ---
HPI History of Present Illness Patient information: Note initiated : 10/27/21 at 11:42 pm Service Date, if different from initiated Date: [] Patient: Dany Marrero 66 y/o M admitted on for Low Sodium. Chief Complaint: [] History of present illness: Mr. Marrero is a 66 year old male with a history of hypertension, COPD, coronary artery disease, PTSD, depression, anxiety, alcohol use disorder was told to go to the emergency department for severe hyponatremia. Upon arrival to the emergency department, the patient was found to have a sodium level of 117. Additionally, the patient was felt to be in alcohol withdrawal. Hospital medicine was consulted for admission. Review of systems Constitutional: no fever, fatigue, or weight loss Eyes: no vision changes or pain Cardiovascular: no chest pain, no palpitations Respiratory: no cough or dyspnea Gastrointestinal: no abdominal pain, no nausea, vomiting, or diarrhea Genitourinary: no dysuria or difficulty voiding Musculoskeletal: no arthralgia or myalgia Integumentary: no skin lesion or wound Neurological: no focal weakness or numbness Psychiatric: Positive for anxiety Physical exam Head: Atraumatic, normal inspection. Eyes: normal appearance, no scleral icterus. Neck: full ROM Respiratory: no respiratory distress. Cardiovascular: normal rate and rhythm, S1, S2. GI/Abdominal: soft, nontender, no guarding. Extremities: full range of motion, nontender. Neurological: CN II-XII intact, intact motor, intact sensation. Psychiatric: normal mood. Skin: warm, normal color PFSH PFSH All Active Problems (Updated 10/28/21 @ 11:01 by Kei James MD) Curvature of the penis (Chronic) Macrocytosis (Chronic) Alcohol abuse, continuous drinking behavior (Chronic) COPD (chronic obstructive pulmonary disease) (Chronic) Depression (Chronic) Anxiety (Chronic) Erectile dysfunction (Chronic) Urinary urgency (Chronic) History of pancreatitis (Chronic) Hypertension, essential (Chronic) Cigarette smoker (Chronic) BPH (benign prostatic hyperplasia) (Chronic) Hyponatremia (Chronic) Tremulousness (Chronic) ASHD (arteriosclerotic heart disease) (Chronic) Degenerative disc disease, lumbar (Chronic) Post traumatic stress disorder (PTSD) (Chronic) Nausea, vomiting and diarrhea (Acute) Macrocytosis (Chronic) Chronic hyponatremia (Chronic) Hypocalcemia (Acute) Hypokalemia (Acute) Elevated LFTs (Acute) Alcoholism, chronic (Chronic) Hyperbilirubinemia (Acute) Alcoholic intoxication (Acute) Hypocalcemia (Acute) Elevated LFTs (Acute) Anemia, macrocytic (Acute) Depression (Acute) Chest pain (Acute) Alcohol abuse (Acute) Chronic post-traumatic stress disorder (Acute) Chest pain (Acute) Pneumonia (Acute) Wernicke-Korsakoff syndrome (alcoholic) (Chronic) Medical History Alcohol abuse, continuous drinking behavior Alcohol intoxication Alcohol intoxication Anxiety ASHD (arteriosclerotic heart disease) seen on CT scan of abdomen 09-19-18 BPH (benign prostatic hyperplasia) Chest pain Cigarette smoker COPD (chronic obstructive pulmonary disease) Curvature of the penis Degenerative disc disease, lumbar seen on CT abdomen 09-19-2018 Depression Drug overdose Erectile dysfunction Fatigue History of hepatitis C treated and cured History of pancreatitis History of suicide attempt Hypertension, essential Hyponatremia Macrocytosis Post traumatic stress disorder (PTSD) Sciatica Suicidal ideation Tremulousness Urinary urgency Surgical History History of appendectomy History of back surgery History of photovaporization of prostate Family History Father CHF (congestive heart failure) Mother CHF (congestive heart failure) Social History (Updated 06/12/18 @ 08:06 by Joshua Avlia MD) marital status: occupational status: employed alcohol intake frequency: 2+ drinks per day (Heavy daily drinking; 20-30 beer per day (03/18/2020)) substance use type: does not use MEDS/ALLERGIES Home Medications and Allergies Home Medications Medication Instructions Recorded Confirmed Type gabapentin 300 mg capsule 300 mg PO TID #14 cap 03/09/20 Rx lorazepam 1 mg tablet (Ativan) 1 mg PO TID PRN #14 tab 03/09/20 Rx aspirin 81 mg PO DAILY 09/08/20 02/20/21 History losartan 25 mg PO DAILY 09/08/20 02/20/21 History mirtazapine 30 mg PO QDAY 09/08/20 02/20/21 History oxybutynin chloride 10 mg PO DAILY 09/08/20 02/20/21 History risperidone 0.25 mg PO BID 09/08/20 09/08/20 History thiamine HCl (vitamin B1) 100 mg PO DAILY 09/08/20 02/20/21 History trazodone 100 mg PO QHS 09/08/20 02/20/21 History albuterol 2 puff Q6 02/20/21 02/20/21 History azithromycin 250 mg tablet See Rx Instructions .ROUTE 06/02/21 Rx (Zithromax Z-Hitesh) .COMPLEX #6 tab Allergies Allergy/AdvReac Type Severity Reaction Status Date / Time penicillin V [From Pen-Vee K] Allergy Severe Anaphylaxis Verified 10/27/21 21:40 EXAM Constitutional Vitals: Temp Pulse Resp BP Pulse Ox 97.0 F 89 17 109/79 95 10/27/21 21:38 10/27/21 23:31 10/27/21 23:31 10/27/21 23:31 10/27/21 23:31 DATA Data Completed and Pending Labs: Labs from last 24 hours 10/27/21 10/27/21 10/27/21 22:50 22:50 22:50 POC Hct POC Sodium POC Potassium POC Chloride POC Total CO2 POC BUN POC Creatinine POC Glucose Osmolality POC WB Ioniz Calcium Magnesium Troponin T Urine Color Yellow Urine Appearance Hazy A Urine pH 6.0 Ur Specific [place] 1.003 Urine Protein Negative Urine Glucose (UA) Negative Urine Ketones Negative Urine Occult Blood 0.03 Urine Nitrate Negative Urine Bilirubin Negative Urine Urobilinogen Negative Ur Leukocyte Esterase Negative Urine RBC < 1 Urine WBC < 1 Ur Squamous Epith Cells 0 Urine Bacteria None Ur Culture Indicated? No Urine Osmolality 145 Ur Random Creatinine Pending Ur Random Sodium Pending Ethyl Alcohol 10/27/21 10/27/21 10/27/21 21:50 21:50 21:50 POC Hct 53 POC Sodium 117 L* POC Potassium 4.1 POC Chloride 83 L POC Total CO2 21 L POC BUN < 3 L POC Creatinine 0.8 POC Glucose 88 Osmolality 283 POC WB Ioniz Calcium 1.01 L Magnesium 2.0 Troponin T < 0.01 Urine Color Urine Appearance Urine pH Ur Specific [place] Urine Protein Urine Glucose (UA) Urine Ketones Urine Occult Blood Urine Nitrate Urine Bilirubin Urine Urobilinogen Ur Leukocyte Esterase Urine RBC Urine WBC Ur Squamous Epith Cells Urine Bacteria Ur Culture Indicated? Urine Osmolality Ur Random Creatinine Ur Random Sodium Ethyl Alcohol 0.172 H A/P Narrative A/P Narrative: Assessment: 66 year old male with a history of alcohol use disorder admitted for severe hyponatremia likely related to alcohol use. #Severe hyponatremia #Alcohol withdrawal #Hypertension #PTSD #Depression #Anxiety #Alcohol use disorder Plan -IV fluid with normal saline. -Trend sodium, avoid correction > 8 mEq/L/24 hrs. -Check serum and urine osmolality and urine sodium. -Check TSH and morning cortisol levels. -CIWA protocol with Ativan prn. -Vitamin supplementation. -Replace electrolytes as needed. -Home medication reconciliation. -DVT prophylaxis: Lovenox -CODE STATUS: Full -Disposition: Home when stable. Plan of Treatment: See above Time Spent With Patient Time: Total time spent is greater than 50% in coordination of care (as documented) at patient's floor/unit and/or counseling patient:
[2021-10-27] MEDS: 0.9 % SODIUM CHLORIDE 1,000 ML IV SCH (23:49)
[2021-10-28] MEDS ORDERED: LACTULOSE 20 GM/30 ML ORAL.SOL PO PRN (00:45)
[2021-10-28] MEDS ORDERED: SENNOSIDES 1 TABLET PO PRN (00:45)
[2021-10-28] MEDS: 0.9 % SODIUM CHLORIDE 10 ML SYRINGE IV SCH ×3 (05:19→20:01)
[2021-10-28] MEDS: LORazepam 2 MG/ML VIAL IV PRN ×8 (05:19→22:26)
[2021-10-28] MEDS ORDERED: LORazepam 2 MG/ML VIAL ONE (05:25)
[2021-10-28] MEDS ORDERED: 0.9 % SODIUM CHLORIDE 10 ML SYRINGE IV SCH (06:00)
--- NOTE | 2021-10-28 06:15 | XRay Report ---
INDICATION: Chest Pain TECHNIQUE: AP portable semiupright chest x-ray COMPARISON: Previous chest x-rays dated 06/02/2021, 02/20/2021 FINDINGS: Lungs:Lungs are negative. No focal pulmonary parenchymal infiltrate or mass. Previously described right basilar infiltrate is no longer present Heart, vascular:No significant cardiomegaly. Pulmonary vascularity is normal. No pulmonary edema or pulmonary congestion Mediastinum, piotr:No mediastinal widening. No hilar mass Pleura:No pleural fluid. No pleural-based mass or calcification Skeletal:Negative. IMPRESSION: 1. Negative AP chest x-ray 2. Interval resolution of right basilar infiltrate Interpreted and Authenticated by: Noah Rios 10/28/21
[2021-10-28 07:09] LABS: Thyroid Stimulating Hormone 3.07 uIU/mL (0.27-5.01)
[2021-10-28 07:15] LABS: Basophils # (Auto) 0.06 K/mcL (0.00-0.30); Basophils % (Auto) 1.3 % (0.0-2.0); Eosinophils # (Auto) 0.13 K/mcL (0.00-0.70); Eosinophils % (Auto) 2.9 % (0.0-7.0); Hematocrit 39.2 % (40.1-51.0); Hemoglobin 14.2 g/dL (13.7-17.5); Lymphocytes % (Auto) 26.7 % (15.5-49.0); Mean Cell Volume 99.5 fL (80.0-100.0); Mean Corpuscular HGB Conc 36.2 g/dL (31.0-36.0); Mean Platelet Volume 9.4 fL (7.4-10.4); Monocytes # (Auto) 0.62 K/mcL (0.10-0.90); Monocytes % (Auto) 13.8 % (1.0-12.0); Neutrophils % (Auto) 55.3 % (38.0-78.0); Platelet Count 145 K/mcL (140-440); RBC 3.94 M/mcL (4.63-6.08); Red Cell Distribution Width 12.4 % (11.5-14.5); WBC 4.5 K/mcL (4.5-11.0)
--- NOTE | 2021-10-28 07:32 | Nephrology Consult Note ---
HPI Data of Consult Patient: new to practice Consult date: 10/28/21 Requesting physician: Jama Gregory Primary Care Provider: PCP No Consult Narrative Patient Information: Note initiated : 10/28/21 at 7:29 am Service Date, if different from initiated Date: [] Patient: Dany Marrero 66 y/o M admitted on 10/28/21 for Low Sodium. Chief Complaint: [Low sodium] Chief complaint: low sodium Reason for consult: Management of electrolyte abnormality in patient with EtOH. cc:: CC: Jama Gregory MD I was called by the ER MD around 2230 hr 10/27/2021 and informed of a consult with a brief Hx as follows: 66 yr old hard drinking vet with alleged consuption of 1 case of beer qday. Was called for routine lab work done at the [facility] and was called back by the referring facility and was told to call an ambulance and was transported to [facility] for abnormal labs. Of note is the fact that she drove himself with an Etoh level of 0.173 mg/dl, serum Na of 117, BUN 3, Osm 268 and no significant osmolar gap. Plan was to admit, detox and monitor and replace electrolytes as indicated. He was admitted for similar malady in Aug 2018 and D/C'd when Na reached 126. Serum Sodium Impression: Chronic longstanding hyponatremia in the setting of excessive consumption of beer. 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 He has oculomotor dysfunction with nystagmus and is high risk for Wernicke's encephalopathy. Macrocytosis is due to longstanding alcohol use He reports a history of withdrawal syndrome including seizures and/or DTs His visceral stores of protein were markedly depleted evidenced by BUN 2 to 3 mg/dl He has no desire to stop drinking alcohol although he reports 4 years in the past 40 that he was able to stop drinking As the EtOH is metabolized, his osmolarity will decrease until he is able to clear his excess free water. Free water excretion is impaired due to low urea levels and loss if the medullary gradient needed to adjust urine tonicity. Recommend: NS IV Restrict po hypotonic fluids Aggressive thiamine replacement given possibility of WKE Nutritional support with hyperosmolar enteral feeding TID and in place of H2O to swallow pills Serial labs including daily PO4 and Mg due to refeeding and intracellular shifting Constitutional Constitutional: Present anorexia and weight loss EENT Eyes: Present itchy eyes Nose, mouth and throat: Present dry mouth Cardiovascular Cardiovascular: Present other Additional comments: htn Respiratory Respiratory: Present chest congestion Gastrointestinal Gastrointestinal: Present nausea and vomiting (with supplements but NOT BEER) Genitourinary Genitourinary: change in libido and other Musculoskeletal Musculoskeletal: Present atrophy Integumentary Integumentary: Present change in hair and sores Neurological Neurological: Present abnormal gait, behavioral changes, confusion, convulsions (EtOH withdrawal in past), disequilibrium, dizziness, frequent falls, lack of coordination, memory loss, tremor(s) and weakness Psychiatric Psychiatric: Present behavioral changes and confusion Endocrine Endocrine: Present as per HPI and fatigue Hematologic/Lymphatic Hematologic/Lymphatic: Present easy bruising Allergic/Immunologic Allergic/Immunologic: Present itchy eyes PFSH PFSH All Active Problems (Updated 10/28/21 @ 11:01 by Kei James MD) Wernicke-Korsakoff syndrome (alcoholic) (Chronic) Curvature of the penis (Chronic) Macrocytosis (Chronic) Alcohol abuse, continuous drinking behavior (Chronic) COPD (chronic obstructive pulmonary disease) (Chronic) Depression (Chronic) Anxiety (Chronic) Erectile dysfunction (Chronic) Urinary urgency (Chronic) History of pancreatitis (Chronic) Hypertension, essential (Chronic) Cigarette smoker (Chronic) BPH (benign prostatic hyperplasia) (Chronic) Hyponatremia (Chronic) Tremulousness (Chronic) ASHD (arteriosclerotic heart disease) (Chronic) Degenerative disc disease, lumbar (Chronic) Post traumatic stress disorder (PTSD) (Chronic) Nausea, vomiting and diarrhea (Acute) Macrocytosis (Chronic) Chronic hyponatremia (Chronic) Hypocalcemia (Acute) Hypokalemia (Acute) Elevated LFTs (Acute) Alcoholism, chronic (Chronic) Hyperbilirubinemia (Acute) Alcoholic intoxication (Acute) Hypocalcemia (Acute) Elevated LFTs (Acute) Anemia, macrocytic (Acute) Depression (Acute) Chest pain (Acute) Alcohol abuse (Acute) Chronic post-traumatic stress disorder (Acute) Chest pain (Acute) Pneumonia (Acute) Medical History Alcohol abuse, continuous drinking behavior Alcohol intoxication Alcohol intoxication Anxiety ASHD (arteriosclerotic heart disease) seen on CT scan of abdomen 09-19- BPH (benign prostatic hyperplasia) Chest pain Cigarette smoker COPD (chronic obstructive pulmonary disease) Curvature of the penis Degenerative disc disease, lumbar seen on CT abdomen 09-19-2018 Depression Drug overdose Erectile dysfunction Fatigue History of hepatitis C treated and cured History of pancreatitis History of suicide attempt Hypertension, essential Hyponatremia Macrocytosis Post traumatic stress disorder (PTSD) Sciatica Suicidal ideation Tremulousness Urinary urgency Surgical History History of appendectomy History of back surgery History of photovaporization of prostate Family History Father CHF (congestive heart failure) Mother CHF (congestive heart failure) Social History (Updated 06/12/18 @ 08:06 by Joshua Avila MD) marital status: occupational status: employed alcohol intake frequency: 2+ drinks per day (Heavy daily drinking; 20-30 beer per day (03/18/2020)) substance use type: does not use MEDS/ALLERGIES Home Medications and Allergies Home Medications Medication Instructions Recorded Confirmed Type gabapentin 300 mg capsule 300 mg PO TID #14 cap 03/09/20 Rx lorazepam 1 mg tablet (Ativan) 1 mg PO TID PRN #14 tab 03/09/20 Rx aspirin 81 mg PO DAILY 09/08/20 02/20/21 History losartan 25 mg PO DAILY 09/08/20 02/20/21 History mirtazapine 30 mg PO QDAY 09/08/20 02/20/21 History oxybutynin chloride 10 mg PO DAILY 09/08/20 02/20/21 History risperidone 0.25 mg PO BID 09/08/20 09/08/20 History thiamine HCl (vitamin B1) 100 mg PO DAILY 09/08/20 02/20/21 History trazodone 100 mg PO QHS 09/08/20 02/20/21 History albuterol 2 puff Q6 02/20/21 02/20/21 History azithromycin 250 mg tablet See Rx Instructions .ROUTE 06/02/21 Rx (Zithromax Z-Hitesh) .COMPLEX #6 tab Allergies Allergy/AdvReac Type Severity Reaction Status Date / Time penicillin V [From Pen-Vee K] Allergy Severe Anaphylaxis Verified 10/27/21 21:40 Physical Examination Vital Signs Vital signs: Temp Pulse Resp BP Pulse Ox 37.7 C H 93 H 21 154/101 96 10/28/21 04:01 10/28/21 06:01 10/28/21 06:01 10/28/21 06:01 10/28/21 06:01 General Appearance General appearance: cachectic, chronically ill, fatigue and frail EENT EENT: mucous membranes moist (Dry) Neck Neck: no JVD and no carotid bruit Respiratory Respiratory: course breath sounds Cardiovascular Cardiology: mid-systolic murmur, regular rhythm, normal S1 and normal S2 Gastrointestinal Gastrointestinal: normoactive bowel sounds Integumentary Integumentary: cool/clammy and skin tear Neurologic Neurologic: no focal deficit (Bilateral nystagmus and failure of consistant lateral gaze), asterixis and disoriented Musculoskeletal Musculoskeletal: no cyanosis and no clubbing Psychiatric Psychiatric: agitated Results Lab Results Result Diagrams: 10/28/21 05:24 10/28/21 05:24 Lab results: Most recent lab results Magnesium 2.3 mg/dL (1.6-2.5) 10/28/21 05:24 A/P Assessment and plan (1) Chronic hyponatremia: Assessment and plan: Looking back in EMR, No normal serum sodiums in 5 yrs Loss of urinary free H2O excretion due to protein deprivation 1 case Roc beer per day = 288 fluid oz of water (8.5 Liters or ~ 2 gallons of beer = free water). Simply cannot excrete the excess water so sodium is slowly diluted Plan: No hypertonic saline Volume expand with NS Free water restrict orally Protein supplementaion Status: Chronic (2) Alcoholism, chronic: Plan: No plans or desire to stop Status: Chronic (3) Wernicke-Korsakoff syndrome (alcoholic): Assessment and plan: Occulomotor signs of nystagmus and later gaze difficulty Tremors Encephalopathy Plan: High dose thiamine and MVI Status: Chronic (4) Macrocytosis: Assessment and plan: Toxic effect of EtOH on RBC maturation Plan: MVI will not hurt Status: Chronic Narrative A/P Narrative: 1. Chronic hyponatremia with > 8 liters a day of Roc beer intake. Beer potomania is D/X Slow correction of Na as outlined above 2. Chronic alcoholism with WCS likely 3. High risk for refeeding syndroms Plan of Treatment: See above Time Spent With Patient Time: Total time spent is greater than 50% in coordination of care (as documented) at patient's floor/unit and/or counseling patient: Total time spent with greater than 50% in coordination of care (as documented) at patient's floor/unit and/or counseling patient:: 50 - 70 minutes Attestation: Over an hour of time with ER MD last PM and chart review, ICU visit and update with ICU nursing staff. TundeJO
[2021-10-28] MEDS ORDERED: DOCUSATE SODIUM 100 MG CAPSULE PO SCH (09:00)
[2021-10-28] MEDS ORDERED: THIAMINE 100 MG in 0.9 % SODIUM CHLORIDE 50 ML IV SCH (09:00)
[2021-10-28] MEDS ORDERED: FOLIC ACID 1 MG TABLET PO SCH (09:00)
--- NOTE | 2021-10-28 09:28 | EKG ---
[facility] Test Date: 2021-10-27 Pat Name: Dany Marrero Department: ED Room: Gender: Male Fitness Director: MARTINA : 1955 Requested By: Nikita Steiner Order Number: [id number] Reading MD: Azam Renee Measurements Intervals [place] Rate: 82 P: MO: QRS: -23 QRSD: 90 T: 28 QT: 377 QTc: 441 Interpretive Statements SINUS RHYTHM Borderline left axis deviation Minimal ST elevation, inferior leads Electronically Signed On 10-28-2021 9:28:26 PDT by Azam Renee /store/[email or web address]/[id number]/[email or web address]/[id number]
[2021-10-28] MEDS: 0.9 % SODIUM CHLORIDE 1,000 ML IV SCH ×2 (09:37→19:00)
[2021-10-28] MEDS: MULTIVIT,THER IRON,CA,FA & MIN 1 TABLET PO SCH (10:54)
[2021-10-28] MEDS ORDERED: THIAMINE 100 MG in 0.9 % SODIUM CHLORIDE 50 ML IV ONE (11:37)
[2021-10-28] MEDS ORDERED: ALBUTEROL SULFATE 2.5 MG/3 ML NEBULIZER NEB PRN (12:23)
[2021-10-28] MEDS: SODIUM CHLORIDE 0.9% IV ONE ×2 (12:49→12:53)
[2021-10-28] MEDS: FOLIC ACID IV ONE ×2 (12:49→12:53)
[2021-10-28] MEDS: THIAMINE IV ONE ×2 (12:49→12:53)
[2021-10-28] MEDS: LOSARTAN 25 MG TABLET PO SCH ×2 (14:30→17:12)
[2021-10-29] MEDS: LORazepam 2 MG/ML VIAL IV PRN ×7 (02:30→08:58)
[2021-10-29] MEDS: 0.9 % SODIUM CHLORIDE 1,000 ML IV SCH ×4 (04:47→23:37)
[2021-10-29] MEDS: 0.9 % SODIUM CHLORIDE 10 ML SYRINGE IV SCH ×3 (05:32→21:02)
[2021-10-29 06:50] LABS: Blood Urea Nitrogen 6 mg/dL (8-23); Calcium 8.4 mg/dL (8.6-10.4); Carbon Dioxide 18 mmol/L (22-30); Chloride 91 mmol/L (96-108); Glomerular Filtration Rate 112; Glucose 92 mg/dL (70-105)
--- NOTE | 2021-10-29 08:15 | Nephrology Progress Note ---
SUBJECTIVE Subjective Patient information: Note initiated : 10/29/21 at 8:14 am Service Date, if different from initiated Date: [] Patient: Dany Marrero 66 y/o M admitted on 10/28/21 for Low Sodium. Chief Complaint: [Told to come to ED for irregular labs] Principal diagnosis: Hyponatremia / Beer Potamania Interval history: Seen, examined and data reviewed. Currently sedated with Dexmedetomidine HCl Receiving Thiamine 200 mg IV qD and MVI Pertinent ROS: Agitated so now sedated Additional PMFSH (Level 3 Only): N/A Constitutional Vitals: Vital Signs Temp Pulse Resp BP Pulse Ox 36.8 C 87 18 163/96 97 10/29/21 04:01 10/29/21 06:01 10/29/21 06:01 10/29/21 06:01 10/29/21 07:10 Period Temp Pulse Resp BP Sys/See Pulse Ox Last 24 Hr 36.8 C-37.2 C 80-99 17-23 143-166/88-110 90-97 Intake and Output 10/28/21 10/29/21 10/29/21 21:59 05:59 13:59 Intake Total 938 978 Output Total 155 277 Balance 783 701 Weight 81.919 kg Intake & Output: Intake & Output 10/28/21 10/29/21 10/29/21 21:59 05:59 13:59 Intake Total 938 978 Output Total 155 277 Balance 783 701 Weight 81.919 kg Intake: IV 938 978 Sodium Chloride 0.9% 1,000 ml @ 938 978 100 mls/hr IV .Q10H [facility] Rx#: [id number] Output: Void Amount 150 275 # of times incontinent of urine 5 2 Other: Meal Nourishment/Supplement Percent of Meal Consumed 50% Urine Appearance Clear Urine Color Light [place] Light Elzbieta Urine Odor Strong Stool Size Small Small Moderate Stool Color Brown Brown Yellow Yellow Stool Consistency Watery Liquid Liquid Loose # Voids 1 # Bowel Movements 1 # of times incontinent of 1 1 Bowels Current Medications Acetaminophen (Acetaminophen 325 Mg Tablet) 650 mg PO Q6HP PRN; Protocol PRN Reason: Per Pain Protocol/Fever > 101 Albuterol Sulfate (Albuterol Sulfate 2.5 Mg/3 Ml Nebulizer) 2.5 mg NEB Q2HP PRN PRN Reason: Shortness Of Breath Aspirin (Aspirin 81 Mg Tab.Chew) 81 mg PO DAILY [facility] Last Admin: 10/29/21 08:25 Dose: 81 mg Documented by: Atorvastatin Calcium (Atorvastatin 40 Mg Tablet) 40 mg PO QHS [facility] Enoxaparin Sodium (Enoxaparin 40 Mg/0.4 Ml Syringe) 40 mg SQ DAILY [facility] Last Admin: 10/29/21 08:25 Dose: 40 mg Documented by: Escitalopram Oxalate (Escitalopram 20 Mg Tablet) 20 mg PO QDAY [facility] Last Admin: 10/29/21 08:24 Dose: 20 mg Documented by: Folic Acid (Folic Acid 1 Mg Tablet) 1 mg PO DAILY [facility] Hydroxyzine HCl (Hydroxyzine 25 Mg Tablet) 25 mg PO BID PRN PRN Reason: Anxiety Last Admin: 10/29/21 08:24 Dose: 25 mg Documented by: Thiamine HCl 200 mg/ Sodium (Chloride) 52 mls @ 50 mls/hr IV DAILY [facility] Dexmedetomidine HCl 400 mcg/ (Premix) 100 mls @ 4.096 mls/hr IV .Q24H PRN; Protocol PRN Reason: Alcohol Withdrawal Last Titration: 10/29/21 13:07 Dose: 0.4 mcg/kg/hr, 8.192 mls/hr Documented by: Sodium Chloride (Sodium Chloride 0.9%) 250 mls @ 20 mls/hr IV .[id number] [facility] Last Admin: 10/29/21 09:00 Dose: 20 mls/hr Documented by: Sodium Chloride (Sodium Chloride 0.9%) 1,000 mls @ 75 mls/hr IV .[id number] [facility] Iron Carb/Multivit/Survey Compiler/Folic Acid (Multivit,Ther Iron,Ca,Fa & Min 1 Tablet) 1 tab PO DAILY [facility] Last Admin: 10/29/21 08:25 Dose: 1 tab Documented by: Lactulose (Lactulose 20 Gm/30 Ml Oral.Garima) 10 gm PO DAILYP PRN PRN Reason: Constipation Lorazepam (Lorazepam 2 Mg/Ml Vial) 0 mg IV Q4HP PRN; Protocol PRN Reason: Alcohol Withdrawal Last Admin: 10/29/21 08:58 Dose: 3 mg Documented by: Lorazepam (Lorazepam 2 Mg/Ml Vial) 1 mg IV Q6H [facility] Last Admin: 10/29/21 10:40 Dose: Not Given Documented by: Magnesium Oxide (Magnesium Oxide 400 Mg Tablet) 400 mg PO BID [facility] Last Admin: 10/29/21 08:25 Dose: 400 mg Documented by: Mirtazapine (Mirtazapine 15 Mg Tablet) 15 mg PO QDAY [facility] Last Admin: 10/29/21 08:25 Dose: 15 mg Documented by: Nicotine (Nicotine 21 Mg Patch) 21 mg TOPICAL DAILY@1000 RILEY Ondansetron HCl (Ondansetron 4 Mg/2 Ml Vial) 4 mg IV Q4HP PRN; Protocol PRN Reason: Nausea And Vomiting Senna (Sennosides 1 Tablet) 2 tab PO HSP PRN PRN Reason: Constipation Sodium Chloride (0.9 % Sodium Chloride 10 Ml Syringe) 10 ml IV Q8 [facility] Last Admin: 10/29/21 05:32 Dose: 10 ml Documented by: General appearance: average body habitus and no acute distress Exam: Sedated Head Head exam: Present normocephalic Eye Additional comments: did not examine today Neck Neck exam: Present normal inspection; Absent meningismus or tenderness Respiratory Respiratory exam: Present CTAB Cardiovascular Cardiovascular exam: Absent gallop, irregular rhythm, JVD, rubs or +S3 GI/Abdominal GI/Abdominal exam: Present hypoactive bowel sounds Extremities Exam Extremities exam: Absent pedal edema Neurological Exam Neurological exam: Present altered (Agitation leading to chemical sedation) Psychiatric Additional comments: Cannot assess Skin Skin exam: Present dry A/P Assessment and plan (1) Chronic hyponatremia: Plan: 1. The submitted he is pretty much orally fluid restricted. 2. He is allowed to wake up, fluid restrict with a dry tray until serum sodium 125 then you can permit up to 1500 cc a day of fluid orally. 3. There is a hyperosmolar tube feeding such as Nepro which is on the order of 560 mOsm/L 1 can a day as a protein supplement as well as use in place of water to swallow his oral medications 4. For now continue normal saline IV 5. No need to continue every 6 hours sodiums Status: Chronic (2) Wernicke-Korsakoff syndrome (alcoholic): Plan: Thiamine and multivitamins Monitor for worsening neurologic symptoms Status: Chronic Comment: High-dose thiamine With sedation I am unable to assess his eye movements (3) Alcoholism, chronic: Status: Chronic Comment: This is the root cause of all his problems (4) Hyponatremia: Status: Acute Comment: Chronic and slowly improving. Error beer potomania disorder of free water excretion (5) Alcohol withdrawal syndrome: Plan: I did add some topical clonidine in the form of a TTS 1 patch for both his blood pressure and to decrease central autonomic outflow Stop the PAULA inhibitor Status: Acute Narrative A/P Narrative: See my suggestions above Plan of Treatment: See above Time Spent With Patient Time: Total time spent is greater than 50% in coordination of care (as documented) at patient's floor/unit and/or counseling patient:
[2021-10-29] MEDS: hydrOXYzine 25 MG TABLET PO PRN (08:24)
[2021-10-29] MEDS: ESCITALOPRAM 20 MG TABLET PO SCH (08:24)
[2021-10-29] MEDS: LOSARTAN 25 MG TABLET PO SCH (08:24)
[2021-10-29] MEDS: MIRTAZAPINE 15 MG TABLET PO SCH (08:25)
[2021-10-29] MEDS: ENOXAPARIN 40 MG/0.4 ML SYRINGE SQ SCH (08:25)
[2021-10-29] MEDS: ASPIRIN 81 MG TAB.CHEW PO SCH (08:25)
[2021-10-29] MEDS: MAGNESIUM OXIDE 400 MG TABLET PO SCH ×2 (08:25→21:01)
[2021-10-29] MEDS: MULTIVIT,THER IRON,CA,FA & MIN 1 TABLET PO SCH (08:25)
[2021-10-29] MEDS ORDERED: LORazepam 2 MG/ML VIAL IV SCH (08:45)
[2021-10-29] MEDS: DEXMEDETOMIDINE 400 MCG in PREMIX 1 BAG IV PRN ×2 (08:53→19:32)
[2021-10-29] MEDS ORDERED: SODIUM CHLORIDE 0.9% IV SCH ×2 (09:00→12:00)
[2021-10-29] MEDS: 0.9 % SODIUM CHLORIDE 250 ML IV SCH ×3 (09:00→21:02)
[2021-10-29] MEDS ORDERED: THIAMINE IV SCH ×2 (09:00→12:00)
[2021-10-29] MEDS ORDERED: FOLIC ACID IV SCH ×2 (09:00→12:00)
[2021-10-29] MEDS ORDERED: THIAMINE 200 MG in 0.9 % SODIUM CHLORIDE 50 ML IV SCH (09:00)
[2021-10-29] MEDS ORDERED: LOSARTAN 25 MG TABLET PO SCH (09:00)
[2021-10-29 09:06] LABS: Phosphorous 2.7 mg/dL (2.5-4.5)
[2021-10-29] MEDS: LORazepam 2 MG/ML VIAL IV SCH ×3 (10:40→21:03)
--- NOTE | 2021-10-29 12:23 | Internal Med Progress Note ---
SUBJECTIVE Subjective Patient information: Note initiated : 10/29/21 at 12:19 pm Service Date, if different from initiated Date: [] Patient: Dany Marrero 66 y/o M admitted on 10/28/21 for Low Sodium. Chief Complaint: [] Principal diagnosis: Hyponatremia / Beer [place]ia Interval history: Mr. Marrero is a 66 year old male with a history of hypertension, COPD, coronary artery disease, PTSD, depression, anxiety, alcohol use disorder was told to go to the emergency department for severe hyponatremia. Upon arrival to the emergency department, the patient was found to have a sodium level of 117. Additionally, the patient was felt to be in alcohol withdrawal. Hospital medicine was consulted for admission. 10/29 Patient became increasingly agitated overnight, hallucinating. A Precedex infusion was started, scheduled Ativan and Ativan IV as needed per EARLE. Mitts placed to prevent the patient from pulling lines. Sodium level improved modestly to 121. Physical exam Head: Atraumatic, normal inspection. Eyes: normal appearance, no scleral icterus. Neck: full ROM Respiratory: no respiratory distress. Cardiovascular: normal rate and rhythm, S1, S2. GI/Abdominal: soft, nontender, no guarding. Extremities: full range of motion, nontender. Neurological: CN II-XII intact, intact motor, intact sensation. Psychiatric: Impaired cognition Skin: warm, normal color Constitutional Vitals: Vital Signs Temp Pulse Resp BP Pulse Ox 97.6 F 77 17 147/95 93 10/29/21 08:01 10/29/21 10:07 10/29/21 10:07 10/29/21 10:01 10/29/21 10:07 Period Temp Pulse Resp BP Sys/See Pulse Ox Last 24 Hr 97.6 F-98.9 F 77-102 12-26 143-199/88-121 90-98 Intake and Output 10/28/21 10/29/21 10/29/21 21:59 05:59 13:59 Intake Total 938 978 565 Output Total 155 277 1 Balance 783 701 564 Weight 81.919 kg Intake & Output: Intake & Output 10/28/21 10/29/21 10/29/21 21:59 05:59 13:59 Intake Total 938 978 565 Output Total 155 277 1 Balance 783 701 564 Weight 81.919 kg Intake: IV 938 978 565 Sodium Chloride 0.9% 1,000 ml @ 938 978 553 100 mls/hr IV .Q10H [facility] Rx#: [id number] Precedex 400 Mcg/100 ml 12 Dextrose 400 Mcg In Premix 1 Bag @ 0.2 MCG/KG/HR 4.096 mls/ hr IV .Q24H [facility] Rx#:[id number] Output: Void Amount 150 275 # of times incontinent of urine 5 2 1 Other: Meal Nourishment/Supplement Breakfast Percent of Meal Consumed 50% Refused Urine Appearance Clear Urine Color Light [place] Light [place]zbi[place] Urine Odor Strong Stool Size Small Small Smear Stool Color Brown Brown Yellow Yellow Stool Consistency Watery Liquid Watery Loose # Voids 1 # Bowel Movements 1 # of times incontinent of 1 1 1 Bowels OBJ DATA Labs CBC & Chem 7: 10/28/21 05:24 10/29/21 05:30 Labs: Abnormal Lab Results 10/29/21 10/28/21 10/28/21 05:30 23:09 17:15 RBC Hct MCH MCHC [place] % (Auto) Lymph # (Auto) POC Sodium Sodium 121 L 120 L 119 L* POC Chloride Chloride 91 L Carbon Dioxide 18 L POC Total CO2 POC BUN BUN 6 L Creatinine 0.5 L Osmolality Calcium 8.4 L POC WB Ioniz Calcium Urine Appearance Ur Random Creatinine Ethyl Alcohol 10/28/21 10/28/21 10/28/21 11:29 05:24 05:24 RBC 3.94 L Hct 39.2 L MCH 36.0 H MCHC 36.2 H [place] % (Auto) 13.8 H Lymph # (Auto) 1.20 L POC Sodium Sodium 119 L* 119 L* POC Chloride Chloride Carbon Dioxide POC Total CO2 POC BUN BUN Creatinine Osmolality 251 L Calcium POC WB Ioniz Calcium Urine Appearance Ur Random Creatinine Ethyl Alcohol 10/27/21 10/27/21 10/27/21 22:50 22:50 21:50 RBC Hct MCH MCHC [place] % (Auto) Lymph # (Auto) POC Sodium Sodium POC Chloride Chloride Carbon Dioxide POC Total CO2 POC BUN BUN Creatinine Osmolality Calcium POC WB Ioniz Calcium Urine Appearance Hazy A Ur Random Creatinine 28.2 L Ethyl Alcohol 0.172 H 10/27/21 21:50 RBC Hct MCH MCHC [place] % (Auto) Lymph # (Auto) POC Sodium 117 L* Sodium POC Chloride 83 L Chloride Carbon Dioxide POC Total CO2 21 L POC BUN < 3 L BUN Creatinine Osmolality Calcium POC WB Ioniz Calcium 1.01 L Urine Appearance Ur Random Creatinine Ethyl Alcohol Meds: Medications Acetaminophen (Acetaminophen 325 Mg Tablet) 650 mg PO Q6HP PRN; Protocol PRN Reason: Per Pain Protocol/Fever > 101 Albuterol Sulfate (Albuterol Sulfate 2.5 Mg/3 Ml Nebulizer) 2.5 mg NEB Q2HP PRN PRN Reason: Shortness Of Breath Aspirin (Aspirin 81 Mg Tab.Chew) 81 mg PO DAILY [facility] Last Admin: 10/29/21 08:25 Dose: 81 mg Documented by: Atorvastatin Calcium (Atorvastatin 40 Mg Tablet) 40 mg PO QHS [facility] Enoxaparin Sodium (Enoxaparin 40 Mg/0.4 Ml Syringe) 40 mg SQ DAILY [facility] Last Admin: 10/29/21 08:25 Dose: 40 mg Documented by: Escitalopram Oxalate (Escitalopram 20 Mg Tablet) 20 mg PO QDAY [facility] Last Admin: 10/29/21 08:24 Dose: 20 mg Documented by: Folic Acid (Folic Acid 1 Mg Tablet) 1 mg PO DAILY [facility] Hydroxyzine HCl (Hydroxyzine 25 Mg Tablet) 25 mg PO BID PRN PRN Reason: Anxiety Last Admin: 10/29/21 08:24 Dose: 25 mg Documented by: Thiamine HCl 200 mg/ Sodium (Chloride) 52 mls @ 50 mls/hr IV DAILY [facility] Dexmedetomidine HCl 400 mcg/ (Premix) 100 mls @ 4.096 mls/hr IV .Q24H PRN; Protocol PRN Reason: Alcohol Withdrawal Last Titration: 10/29/21 10:19 Dose: 0.2 mcg/kg/hr, 4.096 mls/hr Documented by: Sodium Chloride (Sodium Chloride 0.9%) 250 mls @ 20 mls/hr IV .[id number] [facility] Last Admin: 10/29/21 09:00 Dose: 20 mls/hr Documented by: Thiamine HCl 200 mg/ Folic (Acid 1 mg/ Sodium Chloride) 52.2 mls @ 50 mls/hr IV 1200 [facility] Stop: 10/29/21 13:03 Last Admin: 10/29/21 11:42 Dose: 50 mls/hr Documented by: Sodium Chloride (Sodium Chloride 0.9%) 1,000 mls @ 75 mls/hr IV .[id number] [facility] Iron Carb/Multivit/[place]/Folic Acid (Multivit,Ther Iron,Ca,Fa & Min 1 Tablet) 1 tab PO DAILY [facility] Last Admin: 10/29/21 08:25 Dose: 1 tab Documented by: Lactulose (Lactulose 20 Gm/30 Ml Oral.Garima) 10 gm PO DAILYP PRN PRN Reason: Constipation Lorazepam (Lorazepam 2 Mg/Ml Vial) 0 mg IV Q4HP PRN; Protocol PRN Reason: Alcohol Withdrawal Last Admin: 10/29/21 08:58 Dose: 3 mg Documented by: Lorazepam (Lorazepam 2 Mg/Ml Vial) 1 mg IV Q6H [facility] Last Admin: 10/29/21 10:40 Dose: Not Given Documented by: Magnesium Oxide (Magnesium Oxide 400 Mg Tablet) 400 mg PO BID [facility] Last Admin: 10/29/21 08:25 Dose: 400 mg Documented by: Mirtazapine (Mirtazapine 15 Mg Tablet) 15 mg PO QDAY [facility] Last Admin: 10/29/21 08:25 Dose: 15 mg Documented by: Nicotine (Nicotine 21 Mg Patch) 21 mg TOPICAL DAILY@1000 [facility] Ondansetron HCl (Ondansetron 4 Mg/2 Ml Vial) 4 mg IV Q4HP PRN; Protocol PRN Reason: Nausea And Vomiting Senna (Sennosides 1 Tablet) 2 tab PO HSP PRN PRN Reason: Constipation Sodium Chloride (0.9 % Sodium Chloride 10 Ml Syringe) 10 ml IV Q8 [facility] Last Admin: 10/29/21 05:32 Dose: 10 ml Documented by: A/P Narrative A/P Narrative: Assessment: 66 year old male with a history of alcohol use disorder admitted for severe hyponatremia likely related to alcohol use. After admission, the patient developed severe alcohol withdrawal complicated by delirium tremens. #Severe alcohol withdrawal/delirium tremens #Hyponatremia secondary to chronic alcohol intake #Hypertension #PTSD #Depression #Anxiety #Severe alcohol use disorder Plan -IV fluid with normal saline. -Monitor sodium, avoid correction > 8 mEq/L/24 hrs. -Precedex infusion, Ativan 1 mg IV every 6 hours while on Precedex infusion. -CIWA protocol with Ativan IV prn per CIWA. -Vitamin supplementation. -Replace electrolytes as needed. -Hold home losartan while on Precedex infusion. -Resume home aspirin, atorvastatin, escitalopram, mirtazapine, hydroxyzine as needed. -Fluid restricted diet for hyponatremia. -DVT prophylaxis: Lovenox -CODE STATUS: Full -Disposition: Home when stable. Plan of Treatment: See above Time Spent With Patient Time: Total time spent is greater than 50% in coordination of care (as documented) at patient's floor/unit and/or counseling patient: QUALITY VTE Deep Vein Thrombosis/Pulmonary Embolism Present on Admission: No
[2021-10-29] MEDS: NICOTINE 21 MG PATCH TOPICAL SCH (13:22)
[2021-10-29] MEDS ORDERED: cloNIDine TTS 1 1 PATCH PATCH TD SCH (14:00)
[2021-10-29] MEDS ORDERED: DEXMEDETOMIDINE 100 ML IV ONE (19:15)
[2021-10-29] MEDS: ATORVASTATIN 40 MG TABLET PO SCH (21:01)
[2021-10-30] MEDS: DEXMEDETOMIDINE 400 MCG in PREMIX 1 BAG IV PRN ×2 (02:33→23:49)
[2021-10-30] MEDS: LORazepam 2 MG/ML VIAL IV SCH ×2 (04:14→10:46)
[2021-10-30] MEDS: 0.9 % SODIUM CHLORIDE 10 ML SYRINGE IV SCH ×4 (04:15→22:00)
[2021-10-30] MEDS: 0.9 % SODIUM CHLORIDE 250 ML IV SCH ×2 (04:39→15:32)
[2021-10-30] MEDS: 0.9 % SODIUM CHLORIDE 1,000 ML IV SCH ×2 (04:40→17:53)
[2021-10-30 07:39] LABS: ALT/SGPT 88 U/L (<40); AST/SGOT 167 U/L (<40); Albumin/Globulin Ratio 1.3 (1.0-2.3); Alkaline Phosphatase 74 U/L (39-117); Bilirubin,Direct 0.3 mg/dL (<0.3); Bilirubin,Total 0.9 mg/dL (0.1-1.0); Blood Urea Nitrogen 6 mg/dL (8-23); Calcium 8.4 mg/dL (8.6-10.4); Carbon Dioxide 19 mmol/L (22-30); Chloride 95 mmol/L (96-108); Globulin 3.1 gm/dL (2.2-3.7); Glomerular Filtration Rate 104; Glucose 103 mg/dL (70-105); Lactate Dehydrogenase 220 U/L (135-225); Phosphorous 2.6 mg/dL (2.5-4.5); Triglycerides 78 mg/dL (<150); Uric Acid 3.2 mg/dL (2.5-8.0)
[2021-10-30] MEDS ORDERED: ENALAPRILAT 1.25 MG/ML VIAL IV PRN (07:44)
[2021-10-30] MEDS: ESCITALOPRAM 20 MG TABLET PO SCH (09:02)
[2021-10-30] MEDS: ENOXAPARIN 40 MG/0.4 ML SYRINGE SQ SCH (09:02)
[2021-10-30] MEDS: ASPIRIN 81 MG TAB.CHEW PO SCH (09:02)
[2021-10-30] MEDS: MIRTAZAPINE 15 MG TABLET PO SCH (09:02)
[2021-10-30] MEDS: MAGNESIUM OXIDE 400 MG TABLET PO SCH ×2 (09:02→19:26)
[2021-10-30] MEDS: THIAMINE 200 MG in 0.9 % SODIUM CHLORIDE 50 ML IV SCH (09:03)
[2021-10-30] MEDS: MULTIVIT,THER IRON,CA,FA & MIN 1 TABLET PO SCH (09:21)
--- NOTE | 2021-10-30 09:51 | Nephrology Progress Note ---
SUBJECTIVE Subjective Patient information: Note initiated : 10/30/21 at 9:46 am Service Date, if different from initiated Date: [] Patient: Dany Marrero 66 y/o M admitted on 10/28/21 for Low Sodium. Chief Complaint: [Sent here for abnormal labs] Principal diagnosis: Hyponatremia / Beer [place] Interval history: Seen and examined on morning rounds Enjoying a sedation holiday while IV started No significant in p.o. intake Serum sodium improved to the mid 120s with no real change in his mental status Suspect there is an element of Wernicke-Korsakoff encephalopathy as he has oculomotor findings, poor nutritional status, greater than a gallon of beer consumption a day, and agitation/dementia. He is voiced his desire on several occasions to not quit drinking beer... Thus all his medical care amounts to nothing more than a Sisyphean effort. Serum Sodium Constitutional Vitals: Vital Signs Temp Pulse Resp BP Pulse Ox 36.2 C 62 16 183/99 96 10/30/21 08:01 10/30/21 08:01 10/30/21 08:01 10/30/21 08:01 10/30/21 08:01 Period Temp Pulse Resp BP Sys/See Pulse Ox Last 24 Hr 36.1 C-36.7 C 59-88 12-24 105-188/70-141 92-99 Intake and Output 10/29/21 10/30/21 10/30/21 21:59 05:59 13:59 Intake Total 726 1112 Output Total 303 502 425 Balance 423 610 -425 Weight 80.91 kg Intake & Output: Intake & Output 10/29/21 10/30/21 10/30/21 21:59 05:59 13:59 Intake Total 726 1112 Output Total 303 502 425 Balance 423 610 -425 Weight 80.91 kg Intake: IV 726 1112 Sodium Chloride 0.9% 1,000 ml @ 447 836 75 mls/hr IV .[id number] [facility] Rx#: [id number] Sodium Chloride 0.9% 250 ml @ 211 182 20 mls/hr IV .[id number] [facility] Rx#: [id number] Precedex 400 Mcg/100 ml 68 94 Dextrose 400 Mcg In Premix 1 Bag @ 0.2 MCG/KG/HR 4.096 mls/ hr IV .Q24H PRN Rx#:[id number] Oral 0 Output: Void Amount 300 500 425 # of times incontinent of urine 3 2 Other: Urine Appearance Clear Clear Clear Urine Color Light [place]zbieta Pale Bright Yellow Urine Odor Strong Normal # Voids 1 General appearance: average body habitus Head Head exam: Present normocephalic Eye Additional comments: OS with left downward gaze inability ENT ENT exam: Present mucous membranes dry Neck Neck exam: Absent meningismus Respiratory Respiratory exam: Present rhonchi Cardiovascular Cardiovascular exam: Present normal rate and rhythm, +S1 and +S2; Absent JVD GI/Abdominal GI/Abdominal exam: Present diminished bowel sounds Neurological Exam Neurological exam: Present altered and CN II-XII intact (Concern for CN Left palsy) Psychiatric Additional comments: encephalopathic when not sedated Skin Skin exam: Present dry A/P Assessment and plan (1) Alcohol withdrawal syndrome: Status: Acute (2) Hyponatremia: Status: Acute Comment: Chronic and slowly improving. 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 The submitted he is pretty much orally fluid restricted. 2. He is allowed to wake up, fluid restrict with a dry tray until serum sodium 125 then you can permit up to 1500 cc a day of fluid orally. 3. There is a hyperosmolar tube feeding such as Nepro which is on the order of 560 mOsm/L 1 can a day as a protein supplement as well as use in place of water to swallow his oral medications 4. For now continue normal saline IV 5. No need to continue every 6 hours sodiums (2) Wernicke-Korsakoff syndrome (alcoholic): Plan: Thiamine and multivitamins Monitor for worsening neurologic symptoms (3) Alcoholism, chronic: (4) Hyponatremia: (5) Alcohol withdrawal syndrome: Plan: I did add some topical clonidine in the form of a TTS 1 patch for both his blood pressure and to decrease central autonomic outflow Stop the PAULA inhibitor Narrative A/P Narrative: As above Plan of Treatment: See above Time Spent With Patient Time: Total time spent is greater than 50% in coordination of care (as documented) at patient's floor/unit and/or counseling patient:
[2021-10-30] MEDS: NICOTINE 21 MG PATCH TOPICAL SCH (10:44)
[2021-10-30] MEDS ORDERED: DIAZEPAM 2 MG TABLET PO PRN (14:38)
--- NOTE | 2021-10-30 15:24 | Internal Med Progress Note ---
SUBJECTIVE Subjective Patient information: Note initiated : 10/30/21 at 3:21 pm Service Date, if different from initiated Date: [] Patient: Dany Marrero 66 y/o M admitted on 10/28/21 for Low Sodium. Chief Complaint: [] Principal diagnosis: Hyponatremia / Beer [place] Interval history: Mr. Marrero is a 66 year old male with a history of hypertension, COPD, coronary artery disease, PTSD, depression, anxiety, alcohol use disorder was told to go to the emergency department for severe hyponatremia. Upon arrival to the emergency department, the patient was found to have a sodium level of 117. Additionally, the patient was felt to be in alcohol withdrawal. Hospital medicine was consulted for admission. 10/29 Patient became increasingly agitated overnight, hallucinating. A Precedex infusion was started, scheduled Ativan and Ativan IV as needed per EARLE. Mitts placed to prevent the patient from pulling lines. Sodium level improved modestly to 121. 10/30 Off precedex infusion, discontinued scheduled Ativan. Sodium improved to 126, alcohol withdrawal likely resolved now. The patient is alert and oriented. Has abdominal discomfort with movement, abdomen is benign on exam. Physical exam Head: Atraumatic, normal inspection. Eyes: normal appearance, no scleral icterus. Neck: full ROM Respiratory: no respiratory distress. Cardiovascular: normal rate and rhythm, S1, S2. GI/Abdominal: soft, nontender, no guarding. Extremities: full range of motion, nontender. Neurological: CN II-XII intact, intact motor, intact sensation. Psychiatric: Impaired cognition Skin: warm, normal color Constitutional Vitals: Vital Signs Temp Pulse Resp BP Pulse Ox 98.2 F 79 22 152/90 97 10/30/21 12:01 10/30/21 12:01 10/30/21 12:01 10/30/21 12:01 10/30/21 12:01 Period Temp Pulse Resp BP Sys/See Pulse Ox Last 24 Hr 97 F-98.2 F 59-80 14-24 114-188/69-141 89-99 Intake and Output 10/30/21 10/30/21 10/30/21 05:59 13:59 21:59 Intake Total 1112 109 Output Total 502 1400 Balance 610 -1291 Intake & Output: Intake & Output 10/30/21 10/30/21 10/30/21 05:59 13:59 21:59 Intake Total 1112 109 Output Total 502 1400 Balance 610 -1291 Intake: IV 1112 109 Sodium Chloride 0.9% 1,000 ml @ 836 75 mls/hr IV .[id number] [facility] Rx#: [id number] Sodium Chloride 0.9% 250 ml @ 182 20 mls/hr IV .[id number] [facility] Rx#: [id number] Precedex 400 Mcg/100 ml 94 57 Dextrose 400 Mcg In Premix 1 Bag @ 0.2 MCG/KG/HR 4.096 mls/ hr IV .Q24H [facility]N Rx#:[id number] Vitamin B1 200 mg In Sodium 52 Chloride 0.9% 50 ml @ 50 mls/hr IV DAILY [facility] Rx#:[id number] Output: Void Amount 500 1400 # of times incontinent of urine 2 Other: Meal Breakfast Percent of Meal Consumed Refused Urine Appearance Clear Clear Urine Color Pale Dark Yellow Urine Odor Normal # Voids 1 OBJ DATA Labs CBC & Chem 7: 10/28/21 05:24 10/30/21 05:19 Labs: Abnormal Lab Results 10/30/21 10/29/21 10/29/21 05:19 18:53 11:12 RBC Hct MCH MCHC [place] % (Auto) Lymph # (Auto) POC Sodium Sodium 126 L 126 L 124 L POC Chloride Chloride 95 L Carbon Dioxide 19 L POC Total CO2 POC BUN BUN 6 L Creatinine 0.6 L Osmolality Calcium 8.4 L POC WB Ioniz Calcium Direct Bilirubin 0.3 H GGT 236 H AST 167 H ALT 88 H Urine Appearance Ur Random Creatinine Ethyl Alcohol 10/29/21 10/28/21 10/28/21 05:30 23:09 17:15 RBC Hct MCH MCHC [place] % (Auto) Lymph # (Auto) POC Sodium Sodium 121 L 120 L 119 L* POC Chloride Chloride 91 L Carbon Dioxide 18 L POC Total CO2 POC BUN BUN 6 L Creatinine 0.5 L Osmolality Calcium 8.4 L POC WB Ioniz Calcium Direct Bilirubin GGT AST ALT Urine Appearance Ur Random Creatinine Ethyl Alcohol 10/28/21 10/28/21 10/28/21 11:29 05:24 05:24 RBC 3.94 L Hct 39.2 L MCH 36.0 H MCHC 36.2 H [place] % (Auto) 13.8 H Lymph # (Auto) 1.20 L POC Sodium Sodium 119 L* 119 L* POC Chloride Chloride Carbon Dioxide POC Total CO2 POC BUN BUN Creatinine Osmolality 251 L Calcium POC WB Ioniz Calcium Direct Bilirubin GGT AST ALT Urine Appearance Ur Random Creatinine Ethyl Alcohol 10/27/21 10/27/21 10/27/21 22:50 22:50 21:50 RBC Hct MCH MCHC [place] % (Auto) Lymph # (Auto) POC Sodium Sodium POC Chloride Chloride Carbon Dioxide POC Total CO2 POC BUN BUN Creatinine Osmolality Calcium POC WB Ioniz Calcium Direct Bilirubin GGT AST ALT Urine Appearance Hazy A Ur Random Creatinine 28.2 L Ethyl Alcohol 0.172 H 10/27/21 21:50 RBC Hct MCH MCHC [place] % (Auto) Lymph # (Auto) POC Sodium 117 L* Sodium POC Chloride 83 L Chloride Carbon Dioxide POC Total CO2 21 L POC BUN < 3 L BUN Creatinine Osmolality Calcium POC WB Ioniz Calcium 1.01 L Direct Bilirubin GGT AST ALT Urine Appearance Ur Random Creatinine Ethyl Alcohol Meds: Medications Acetaminophen (Acetaminophen 325 Mg Tablet) 650 mg PO Q6HP PRN; Protocol PRN Reason: Per Pain Protocol/Fever > 101 Albuterol Sulfate (Albuterol Sulfate 2.5 Mg/3 Ml Nebulizer) 2.5 mg NEB Q2HP PRN PRN Reason: Shortness Of Breath Aspirin (Aspirin 81 Mg Tab.Chew) 81 mg PO DAILY [facility] Last Admin: 10/30/21 09:02 Dose: 81 mg Documented by: Atorvastatin Calcium (Atorvastatin 40 Mg Tablet) 40 mg PO QHS [facility] Last Admin: 10/29/21 21:01 Dose: Not Given Documented by: Clonidine HCl (Clonidine Tts 1 1 Patch Patch) 1 patch TD Th@1400 [facility] Last Admin: 10/29/21 13:43 Dose: 1 patch Documented by: Diazepam (Diazepam 2 Mg Tablet) 2 mg PO BIDP PRN PRN Reason: Anxiety Enalaprilat (Enalaprilat 1.25 Mg/Ml Vial) 0.625 mg IV Q6HP PRN PRN Reason: Hypertension Enoxaparin Sodium (Enoxaparin 40 Mg/0.4 Ml Syringe) 40 mg SQ DAILY [facility] Last Admin: 10/30/21 09:02 Dose: 40 mg Documented by: Escitalopram Oxalate (Escitalopram 20 Mg Tablet) 20 mg PO QDAY [facility] Last Admin: 10/30/21 09:02 Dose: 20 mg Documented by: Folic Acid (Folic Acid 1 Mg Tablet) 1 mg PO DAILY [facility] Hydroxyzine HCl (Hydroxyzine 25 Mg Tablet) 25 mg PO BID PRN PRN Reason: Anxiety Last Admin: 10/29/21 08:24 Dose: 25 mg Documented by: Thiamine HCl 200 mg/ Sodium (Chloride) 52 mls @ 50 mls/hr IV DAILY [facility] Last Infusion: 10/30/21 10:36 Dose: Infused Documented by: Dexmedetomidine HCl 400 mcg/ (Premix) 100 mls @ 4.096 mls/hr IV .Q24H PRN; Protocol PRN Reason: Alcohol Withdrawal Last Titration: 10/30/21 09:30 Dose: Infused Documented by: Sodium Chloride (Sodium Chloride 0.9%) 250 mls @ 20 mls/hr IV .[id number] [facility] Last Admin: 10/30/21 04:39 Dose: 20 mls/hr Documented by: Sodium Chloride (Sodium Chloride 0.9%) 1,000 mls @ 75 mls/hr IV .[id number] [facility] Last Admin: 10/30/21 04:40 Dose: 75 mls/hr Documented by: Iron Carb/Multivit/[place]/Folic Acid (Multivit,Ther Iron,Ca,Fa & Min 1 Tablet) 1 tab PO DAILY [facility] Last Admin: 10/30/21 09:21 Dose: 1 tab Documented by: Lactulose (Lactulose 20 Gm/30 Ml Oral.Garima) 10 gm PO DAILYP PRN PRN Reason: Constipation Lorazepam (Lorazepam 2 Mg/Ml Vial) 0 mg IV Q4HP PRN; Protocol PRN Reason: Alcohol Withdrawal Last Admin: 10/29/21 08:58 Dose: 3 mg Documented by: Magnesium Oxide (Magnesium Oxide 400 Mg Tablet) 400 mg PO BID [facility] Last Admin: 10/30/21 09:02 Dose: 400 mg Documented by: Mirtazapine (Mirtazapine 15 Mg Tablet) 15 mg PO QDAY [facility] Last Admin: 10/30/21 09:02 Dose: 15 mg Documented by: Nicotine (Nicotine 21 Mg Patch) 21 mg TOPICAL DAILY@1000 [facility] Last Admin: 10/30/21 10:44 Dose: 21 mg Documented by: Ondansetron HCl (Ondansetron 4 Mg/2 Ml Vial) 4 mg IV Q4HP PRN; Protocol PRN Reason: Nausea And Vomiting Senna (Sennosides 1 Tablet) 2 tab PO HSP PRN PRN Reason: Constipation Sodium Chloride (0.9 % Sodium Chloride 10 Ml Syringe) 10 ml IV Q8 [facility] Last Admin: 10/30/21 04:15 Dose: 10 ml Documented by: A/P Narrative A/P Narrative: Assessment: 66 year old male with a history of alcohol use disorder admitted for severe hyponatremia likely related to alcohol use. After admission, the osbaldo raines developed severe alcohol withdrawal complicated by delirium tremens. #Resolved severe alcohol withdrawal/delirium tremens #Hyponatremia secondary to chronic alcohol intake, improving #Hypertension #PTSD #Depression #Anxiety #Severe alcohol use disorder Plan -Discontinue IV fluid. -Follow sodium daily, allow to auto-correction. -Discontinue Precedex infusion and Ativan 1 mg IV every 6 hours. -CIWA protocol with Ativan IV prn per CIWA. -Vitamin supplementation. -Replace electrolytes as needed. -Hold home losartan for now. -On Clonidine patch per nephrology. -Valium prn for anxiety, discontinue tomorrow. -Serial abdominal exams. -Continue home aspirin, atorvastatin, escitalopram, mirtazapine, hydroxyzine as needed. -Nephrology following. -Fluid restricted diet for hyponatremia. -DVT prophylaxis: Lovenox -CODE STATUS: Full -Disposition: Home when stable. Plan of Treatment: See above Time Spent With Patient Time: Total time spent is greater than 50% in coordination of care (as documented) at patient's floor/unit and/or counseling patient: QUALITY VTE Deep Vein Thrombosis/Pulmonary Embolism Present on Admission: No
[2021-10-30] MEDS: LORazepam 2 MG/ML VIAL IV PRN ×3 (15:25→23:06)
[2021-10-30] MEDS: ACETAMINOPHEN 325 MG TABLET PO PRN ×2 (16:46→23:47)
[2021-10-30] MEDS: ATORVASTATIN 40 MG TABLET PO SCH (19:16)
[2021-10-30] MEDS: hydrOXYzine 25 MG TABLET PO PRN (19:16)
[2021-10-30] MEDS ORDERED: DEXMEDETOMIDINE 100 ML IV ONE (23:14)
[2021-10-31] MEDS: ONDANSETRON 4 MG/2 ML VIAL IV PRN (00:06)
[2021-10-31] MEDS: 0.9 % SODIUM CHLORIDE 250 ML IV SCH ×3 (01:14→22:35)
[2021-10-31] MEDS: 0.9 % SODIUM CHLORIDE 10 ML SYRINGE IV SCH ×3 (05:31→20:09)
[2021-10-31 07:10] LABS: ALT/SGPT 87 U/L (<40); AST/SGOT 115 U/L (<40); Albumin 3.5 gm/dL (3.2-5.2); Alkaline Phosphatase 73 U/L (39-117); Bilirubin,Direct 0.3 mg/dL (<0.3); Blood Urea Nitrogen 8 mg/dL (8-23); Calcium 8.5 mg/dL (8.6-10.4); Carbon Dioxide 21 mmol/L (22-30); Chloride 98 mmol/L (96-108); Globulin 3.5 gm/dL (2.2-3.7); Glomerular Filtration Rate 98; Glucose 119 mg/dL (70-105); Lactate Dehydrogenase 180 U/L (135-225); Phosphorous 3.6 mg/dL (2.5-4.5); Triglycerides 58 mg/dL (<150); Uric Acid 3.1 mg/dL (2.5-8.0)
[2021-10-31] MEDS ORDERED: POTASSIUM CHLORIDE 20 MEQ TABLET PO ONE (07:14)
[2021-10-31] MEDS ORDERED: LOSARTAN 25 MG TABLET PO SCH (09:00)
[2021-10-31] MEDS: ESCITALOPRAM 20 MG TABLET PO SCH (09:45)
[2021-10-31] MEDS: ASPIRIN 81 MG TAB.CHEW PO SCH (09:45)
[2021-10-31] MEDS: MULTIVIT,THER IRON,CA,FA & MIN 1 TABLET PO SCH (09:45)
[2021-10-31] MEDS: MIRTAZAPINE 15 MG TABLET PO SCH (09:45)
[2021-10-31] MEDS: MAGNESIUM OXIDE 400 MG TABLET PO SCH ×2 (09:45→20:09)
[2021-10-31] MEDS: ENOXAPARIN 40 MG/0.4 ML SYRINGE SQ SCH (09:46)
[2021-10-31] MEDS: FOLIC ACID 1 MG TABLET PO SCH (09:46)
[2021-10-31] MEDS: NICOTINE 21 MG PATCH TOPICAL SCH (09:46)
[2021-10-31] MEDS: THIAMINE 200 MG in 0.9 % SODIUM CHLORIDE 50 ML IV SCH (09:46)
--- NOTE | 2021-10-31 10:27 | Nephrology Progress Note ---
SUBJECTIVE Subjective Patient information: Note initiated : 10/31/21 at 10:21 am Service Date, if different from initiated Date: [] Patient: Dany Marrero 66 y/o M admitted on 10/28/21 for Low Sodium. Chief Complaint: [Irreg labs, to to come here from [facility]] Principal diagnosis: Hyponatremia / Beer [place] Interval history: As outline for past several days Sodium slowing improving since he no longer has access to > 1 case of Roc beer a day. Vows to continue to drink beer There is no "cure" for this person if he continues this self destructive behavior. Simply put, he drinks nore water (in the form of beer) than he can excrete, therefore, his sodium will ALWAYS BE LOW The treatment is BEER restriction = free water restriction and increased nutrition (ie: protein intake). He has made it clear this is not going to happen. He is at the highest serum sodium in the past 5 years so no longer requires hospitalization for electrolyte reasons. Serum Sodium Pertinent ROS: Longest period of time without EtOH is 4 years since entering the [employer]. Additional PMFSH (Level 3 Only): Nothing new Constitutional Vitals: Vital Signs Temp Pulse Resp BP Pulse Ox 36.1 C 69 14 136/93 96 10/31/21 08:01 10/31/21 10:01 10/31/21 10:01 10/31/21 10:01 10/31/21 10:01 Period Temp Pulse Resp BP Sys/See Pulse Ox Last 24 Hr 36.1 C-37.0 C 55-114 14-29 120-162/69-111 91-100 Intake and Output 10/30/21 10/31/21 10/31/21 21:59 05:59 13:59 Intake Total 992 266 61 Output Total 301 375 Balance 691 266 -314 Weight 81.601 kg Intake & Output: Intake & Output 10/30/21 10/31/21 10/31/21 21:59 05:59 13:59 Intake Total 992 266 61 Output Total 301 375 Balance 691 266 -314 Weight 81.601 kg Intake: IV 992 266 61 Sodium Chloride 0.9% 1,000 ml @ 992 75 mls/hr IV .[id number] [facility] Rx#: [id number] Sodium Chloride 0.9% 250 ml @ 250 20 mls/hr IV .[id number] [facility] Rx#: [id number] Precedex 400 Mcg/100 ml 16 61 Dextrose 400 Mcg In Premix 1 Bag @ 0.2 MCG/KG/HR 4.096 mls/ hr IV .Q24H PRN Rx#:[id number] Output: Void Amount 300 375 # of times incontinent of urine 1 Other: Urine Appearance Clear Clear Urine Color Light [place] Bright Yellow Urine Odor Normal # Voids 1 General appearance: average body habitus and no acute distress Head Head exam: Present normocephalic Eye Eye exam: Absent nystagmus (Improved from admission) ENT ENT exam: Present mucous membranes dry Respiratory Respiratory exam: Present rhonchi GI/Abdominal GI/Abdominal exam: Present normal bowel sounds and soft Extremities Exam Extremities exam: Absent pedal edema or tenderness Neurological Exam Neurological exam: Absent CN II-XII intact (OS lateral downward gaze difficult to demonstrate) Psychiatric Psychiatric exam: Present anxious Skin Skin exam: Present dry A/P Assessment and plan (1) Alcohol withdrawal syndrome: Assessment and plan: Seem to be improving Status: Acute (2) Chronic hyponatremia: Assessment and plan: Best sodium in 5 years Beer avoidance is the necessary intervention Status: Chronic (3) Wernicke-Korsakoff syndrome (alcoholic): Status: Chronic Comment: High-dose thiamine With sedation I am unable to assess his eye movements Narrative A/P Narrative: Needs EtOH rehab. Celebrate recovery is my suggestion Plan of Treatment: See above Time Spent With Patient Time: Total time spent is greater than 50% in coordination of care (as documented) at patient's floor/unit and/or counseling patient: Total time spent with greater than 50% in coordination of care (as documented) at patient's floor/unit and/or counseling patient:: 15 - 24 minutes
--- NOTE | 2021-10-31 14:12 | Internal Med Progress Note ---
SUBJECTIVE Subjective Patient information: Note initiated : 10/31/21 at 2:11 pm Service Date, if different from initiated Date: [] Patient: Dnay Marrero 66 y/o M admitted on 10/28/21 for Low Sodium. Chief Complaint: [] Principal diagnosis: Hyponatremia / Beer [place] Interval history: Mr. Marrero is a 66 year old male with a history of hypertension, COPD, coronary artery disease, PTSD, depression, anxiety, alcohol use disorder was told to go to the emergency department for severe hyponatremia. Upon arrival to the emergency department, the patient was found to have a sodium level of 117. Additionally, the patient was felt to be in alcohol withdrawal. Hospital medicine was consulted for admission. 10/29 Patient became increasingly agitated overnight, hallucinating. A Precedex infusion was started, scheduled Ativan and Ativan IV as needed per CIWA. Mitts placed to prevent the patient from pulling lines. Sodium level improved modestly to 121. 10/30 Off precedex infusion, discontinued scheduled Ativan. Sodium improved to 126, alcohol withdrawal likely resolved now. The patient is alert and oriented. Has abdominal discomfort with movement, abdomen is benign on exam. 10/31 Required precedex last night, weaned off this morning. Continues to require intermittent Ativan per CIWA scores but now more oriented. Sodium [address] abdomen/pelvis ordered for persistent abdominal pain. PT consult. Physical exam Head: Atraumatic, normal inspection. Eyes: normal appearance, no scleral icterus. Neck: full ROM Respiratory: no respiratory distress. Cardiovascular: normal rate and rhythm, S1, S2. GI/Abdominal: soft, nontender, no guarding. Extremities: full range of motion, nontender. Neurological: CN II-XII intact, intact motor, intact sensation. Psychiatric: Impaired cognition Skin: warm, normal color Constitutional Vitals: Vital Signs Temp Pulse Resp BP Pulse Ox 98 F 88 20 98/67 97 10/31/21 12:01 10/31/21 14:10 10/31/21 14:10 10/31/21 14:10 10/31/21 14:10 Period Temp Pulse Resp BP Sys/See Pulse Ox Last 24 Hr 97 F-98.6 F 55-114 14-26 98-162/67-111 93-100 Intake and Output 10/31/21 10/31/21 10/31/21 05:59 13:59 21:59 Intake Total 266 113 Output Total 375 Balance 266 -262 Intake & Output: Intake & Output 10/31/21 10/31/21 10/31/21 05:59 13:59 21:59 Intake Total 266 113 Output Total 375 Balance 266 -262 Intake: IV 266 113 Sodium Chloride 0.9% 250 ml @ 250 20 mls/hr IV .[id number] [facility] Rx#: [id number] Precedex 400 Mcg/100 ml 16 61 Dextrose 400 Mcg In Premix 1 Bag @ 0.2 MCG/KG/HR 4.096 mls/ hr IV .Q24H [facility] Rx#:[id number] Vitamin B1 200 mg In Sodium 52 Chloride 0.9% 50 ml @ 50 mls/hr IV DAILY [facility] Rx#:[id number] Output: Void Amount 375 Other: Percent of Meal Consumed 50% Feeding Ability Assist with Tray Set Up Urine Appearance Clear Urine Color Bright Yellow Urine Odor Normal OBJ DATA Labs CBC & Chem 7: 10/28/21 05:24 10/31/21 05:13 Labs: Abnormal Lab Results 10/31/21 10/30/21 10/29/21 05:13 05:19 18:53 Sodium 130 L 126 L 126 L Chloride 95 L Carbon Dioxide 21 L 19 L BUN 6 L Creatinine 0.6 L Glucose 119 H Calcium 8.5 L 8.4 L Direct Bilirubin 0.3 H 0.3 H GGT 215 H 236 H AST 115 H 167 H ALT 87 H 88 H 10/29/21 10/29/21 10/28/21 11:12 05:30 23:09 Sodium 124 L 121 L 120 L Chloride 91 L Carbon Dioxide 18 L BUN 6 L Creatinine 0.5 L Glucose Calcium 8.4 L Direct Bilirubin GGT AST ALT 10/28/21 10/28/21 17:15 11:29 Sodium 119 L* 119 L* Chloride Carbon Dioxide BUN Creatinine Glucose Calcium Direct Bilirubin GGT AST ALT Meds: Medications Acetaminophen (Acetaminophen 325 Mg Tablet) 650 mg PO Q6HP PRN; Protocol PRN Reason: Per Pain Protocol/Fever > 101 Last Admin: 10/30/21 23:47 Dose: 650 mg Documented by: Albuterol Sulfate (Albuterol Sulfate 2.5 Mg/3 Ml Nebulizer) 2.5 mg NEB Q2HP PRN PRN Reason: Shortness Of Breath Aspirin (Aspirin 81 Mg Tab.Chew) 81 mg PO DAILY [facility] Last Admin: 10/31/21 09:45 Dose: 81 mg Documented by: Atorvastatin Calcium (Atorvastatin 40 Mg Tablet) 40 mg PO QHS [facility] Last Admin: 10/30/21 19:16 Dose: 40 mg Documented by: Enalaprilat (Enalaprilat 1.25 Mg/Ml Vial) 0.625 mg IV Q6HP PRN PRN Reason: Hypertension Enoxaparin Sodium (Enoxaparin 40 Mg/0.4 Ml Syringe) 40 mg SQ DAILY [facility] Last Admin: 10/31/21 09:46 Dose: 40 mg Documented by: Escitalopram Oxalate (Escitalopram 20 Mg Tablet) 20 mg PO QDAY [facility] Last Admin: 10/31/21 09:45 Dose: 20 mg Documented by: Folic Acid (Folic Acid 1 Mg Tablet) 1 mg PO DAILY [facility] Last Admin: 10/31/21 09:46 Dose: 1 mg Documented by: Hydroxyzine HCl (Hydroxyzine 25 Mg Tablet) 25 mg PO BID PRN PRN Reason: Anxiety Last Admin: 10/30/21 19:16 Dose: 25 mg Documented by: Thiamine HCl 200 mg/ Sodium (Chloride) 52 mls @ 50 mls/hr IV DAILY [facility] Last Infusion: 10/31/21 10:48 Dose: Infused Documented by: Dexmedetomidine HCl 400 mcg/ (Premix) 100 mls @ 4.096 mls/hr IV .Q24H PRN; Protocol PRN Reason: Alcohol Withdrawal Last Titration: 10/31/21 07:02 Dose: 0 mcg/kg/hr, 0 mls/hr Documented by: Sodium Chloride (Sodium Chloride 0.9%) 250 mls @ 20 mls/hr IV .[id number] [facility] Last Admin: 10/31/21 13:04 Dose: Not Given Documented by: Iron Carb/Multivit/[place]/Folic Acid (Multivit,Ther Iron,Ca,Fa & Min 1 Tablet) 1 tab PO DAILY [facility] Last Admin: 10/31/21 09:45 Dose: 1 tab Documented by: Lactulose (Lactulose 20 Gm/30 Ml Oral.Garima) 10 gm PO DAILYP PRN PRN Reason: Constipation Lorazepam (Lorazepam 2 Mg/Ml Vial) 0 mg IV Q4HP PRN; Protocol PRN Reason: Alcohol Withdrawal Last Admin: 10/30/21 23:06 Dose: 3 mg Documented by: Magnesium Oxide (Magnesium Oxide 400 Mg Tablet) 400 mg PO BID [facility] Last Admin: 10/31/21 09:45 Dose: 400 mg Documented by: Mirtazapine (Mirtazapine 15 Mg Tablet) 15 mg PO QDAY [facility] Last Admin: 10/31/21 09:45 Dose: 15 mg Documented by: Nicotine (Nicotine 21 Mg Patch) 21 mg TOPICAL DAILY@1000 [facility] Last Admin: 10/31/21 09:46 Dose: 21 mg Documented by: Ondansetron HCl (Ondansetron 4 Mg/2 Ml Vial) 4 mg IV Q4HP PRN; Protocol PRN Reason: Nausea And Vomiting Last Admin: 10/31/21 00:06 Dose: 4 mg Documented by: Senna (Sennosides 1 Tablet) 2 tab PO HSP PRN PRN Reason: Constipation Sodium Chloride (0.9 % Sodium Chloride 10 Ml Syringe) 10 ml IV Q8 [facility] Last Admin: 10/31/21 05:31 Dose: 10 ml Documented by: A/P Narrative A/P Narrative: Assessment: 66 year old male with a history of alcohol use disorder admitted for severe hyponatremia likely related to alcohol use. After admission, the patient developed severe alcohol withdrawal complicated by delirium tremens. #Resolving severe alcohol withdrawal/delirium tremens #Improving hyponatremia secondary to chronic alcohol intake #Abdominal pain #Elevated LFTs #Hypertension #PTSD #Depression #Anxiety #Severe alcohol use disorder Plan -Follow sodium daily, allow to auto-correction. -Precedex infusion prn. -CIWA protocol with Ativan IV prn per CIWA. -Vitamin supplementation. -Replace electrolytes as needed. -Hold home losartan for now. -Monitor LFTs. -CT abdomen/pelvis. -Continue home aspirin, atorvastatin, escitalopram, mirtazapine, hydroxyzine as needed. -Nephrology following. -Fluid restricted diet for hyponatremia. -DVT prophylaxis: Lovenox -CODE STATUS: Full -Disposition: Home when stable. Plan of Treatment: See above Time Spent With Patient Time: Total time spent is greater than 50% in coordination of care (as documented) at patient's floor/unit and/or counseling patient: QUALITY VTE Deep Vein Thrombosis/Pulmonary Embolism Present on Admission: No
[2021-10-31] MEDS ORDERED: IOPAMIDOL 100 ML BOTTLE IV ONE (14:40)
--- NOTE | 2021-10-31 14:58 | Cat Scan Report ---
INDICATION: Abdominal pain. Hyponatremia COMPARISON: None. TECHNIQUE: Axial images were obtained through the abdomen and pelvis. Sagittally and coronally reformatted images. 80 mL Isovue 370 injected intravenously. Oral contrast material was not administered FINDINGS: Lung bases:No parenchymal consolidation or mass. There is peribronchial thickening which may indicate bronchitis. There is a small hiatal hernia. Liver:Diffusely low density liver consistent with hepatic steatosis. Liver contour is smooth. There is no nodularity. There is no hepatic mass Gallbladder, bilary:No calcified gallstones. No gallbladder wall thickening. No dilated intra or extrahepatic bile ducts. Spleen:No splenomegaly. No significant retroperitoneal or paraesophageal varices. Normal enhancement of splenic and portal veins Pancreas:No pancreatic mass. No peripancreatic abnormality Adrenal glands:Negative Kidneys,ureters,bladder:No solid renal mass. No hydronephrosis. No obstructing or nonobstructing calculi. No hydroureter. No ureteral calculus. No bladder stone. No detectable bladder mass. Gastrointestinal:No detectable colonic mass. There is no diverticulitis. Negative small bowel. No mechanical small bowel obstruction. No bowel wall thickening. No focal abnormality. Negative stomach and duodenum. No focal abnormality. Appendix: The appendix is nonvisualized Vascular:Extensive atherosclerotic calcification. There is no abdominal aortic aneurysm. Incidental note is made of a retroaortic left renal vein Lymphatic:No retroperitoneal or mesenteric adenopathy Mesentery, peritoneum: No free intraperitoneal fluid. No mesenteric or retroperitoneal mass. No intra-abdominal abscess. Reproductive:Prostate is not significantly enlarged Musculoskeletal:No lumbar compression fractures. Sacrum and pelvis are negative. No hip fracture. No abdominal wall or inguinal hernia IMPRESSION: 1. Hepatic steatosis. No focal hepatic mass. No splenic enlargement or significant varices 2. Probable small hiatal hernia The exam was performed using radiation dose optimization techniques including, but not limited to, automated exposure control, adjustment of the mA and/or kV according to patient size and use of iterative reconstruction technique. Interpreted and Authenticated by: Noah Rios 10/31/21
[2021-10-31] MEDS: ACETAMINOPHEN 325 MG TABLET PO PRN (17:15)
[2021-10-31] MEDS: LORazepam 2 MG/ML VIAL IV PRN (20:09)
[2021-10-31] MEDS: hydrOXYzine 25 MG TABLET PO PRN (20:09)
[2021-10-31] MEDS: ATORVASTATIN 40 MG TABLET PO SCH (20:09)
[2021-11-01] MEDS: LORazepam 2 MG/ML VIAL IV PRN (01:43)
[2021-11-01] MEDS: 0.9 % SODIUM CHLORIDE 10 ML SYRINGE IV SCH ×3 (06:08→21:08)
[2021-11-01 07:16] LABS: Basophils # (Auto) 0.08 K/mcL (0.00-0.30); Basophils % (Auto) 1.1 % (0.0-2.0); Eosinophils # (Auto) 0.14 K/mcL (0.00-0.70); Hematocrit 42.9 % (40.1-51.0); Hemoglobin 15.2 g/dL (13.7-17.5); Lymphocytes # (Auto) 1.63 K/mcL (1.50-4.80); Lymphocytes % (Auto) 23.3 % (15.5-49.0); Mean Cell Volume 101.7 fL (80.0-100.0); Mean Corpuscular HGB Conc 35.4 g/dL (31.0-36.0); Mean Platelet Volume 9.5 fL (7.4-10.4); Monocytes # (Auto) 1.03 K/mcL (0.10-0.90); Monocytes % (Auto) 14.7 % (1.0-12.0); Neutrophils % (Auto) 58.9 % (38.0-78.0); Platelet Count 171 K/mcL (140-440); RBC 4.22 M/mcL (4.63-6.08); Red Cell Distribution Width 13.2 % (11.5-14.5)
[2021-11-01 07:32] LABS: ALT/SGPT 84 U/L (<40); AST/SGOT 91 U/L (<40); Albumin 3.8 gm/dL (3.2-5.2); Albumin/Globulin Ratio 1.1 (1.0-2.3); Alkaline Phosphatase 76 U/L (39-117); Bilirubin,Direct 0.3 mg/dL (<0.3); Bilirubin,Total 0.9 mg/dL (0.1-1.0); Blood Urea Nitrogen 11 mg/dL (8-23); Calcium 9.2 mg/dL (8.6-10.4); Carbon Dioxide 21 mmol/L (22-30); Chloride 99 mmol/L (96-108); Globulin 3.4 gm/dL (2.2-3.7); Glomerular Filtration Rate 98; Glucose 113 mg/dL (70-105); Lactate Dehydrogenase 180 U/L (135-225); Phosphorous 3.7 mg/dL (2.5-4.5); Triglycerides 72 mg/dL (<150); Uric Acid 3.8 mg/dL (2.5-8.0)
[2021-11-01] MEDS: ASPIRIN 81 MG TAB.CHEW PO SCH (08:32)
[2021-11-01] MEDS: FOLIC ACID 1 MG TABLET PO SCH (08:33)
[2021-11-01] MEDS: ENOXAPARIN 40 MG/0.4 ML SYRINGE SQ SCH (08:33)
[2021-11-01] MEDS: ESCITALOPRAM 20 MG TABLET PO SCH (08:33)
[2021-11-01] MEDS: MIRTAZAPINE 15 MG TABLET PO SCH (08:33)
[2021-11-01] MEDS: MAGNESIUM OXIDE 400 MG TABLET PO SCH ×2 (08:33→21:05)
[2021-11-01] MEDS: MULTIVIT,THER IRON,CA,FA & MIN 1 TABLET PO SCH (08:33)
[2021-11-01] MEDS: THIAMINE 200 MG in 0.9 % SODIUM CHLORIDE 50 ML IV SCH (08:56)
[2021-11-01] MEDS: NICOTINE 21 MG PATCH TOPICAL SCH (09:30)
--- NOTE | 2021-11-01 09:45 | Nephrology Progress Note ---
SUBJECTIVE Subjective Patient information: Note initiated : 11/01/21 at 9:43 am Service Date, if different from initiated Date: [] Patient: Dany Marrero 66 y/o M admitted on 10/28/21 for Low Sodium. Chief Complaint: [[facility] due to abnormal labs] Principal diagnosis: Hyponatremia / Beer [place] Interval history: See any of my previous notes for details. From a renal point of view he may lily discharged with [facility] follow up and alcohol rehab as arranged by CM Unless he quits drinking, there is no sense wasting his time and money on renal follow-up as the hospitalization clearly shows abstinence from alcohol fixed his fluid and electrolye abnormalities. Pertinent ROS: More awake and conversant. Additional PMFSH (Level 3 Only): N/A Constitutional Vitals: Vital Signs Temp Pulse Resp BP Pulse Ox 36.8 C 102 H 20 124/82 94 11/01/21 08:01 11/01/21 08:01 11/01/21 08:01 11/01/21 08:01 11/01/21 08:01 Period Temp Pulse Resp BP Sys/See Pulse Ox Last 24 Hr 36.6 C-37.4 C 69-102 - 98-136/59-106 88-97 Intake and Output 10/31/21 11/01/21 11/01/21 21:59 05:59 13:59 Intake Total 480 0 Output Total 425 200 Balance 55 0 -200 Weight 81.012 kg Intake & Output: Intake & Output 10/31/21 11/01/21 11/01/21 21:59 05:59 13:59 Intake Total 480 0 Output Total 425 200 Balance 55 0 -200 Weight 81.012 kg Intake: IV 0 Sodium Chloride 0.9% 1,000 ml @ 0 75 mls/hr IV .[id number] [facility] Rx#: [id number] Precedex 400 Mcg/100 ml 0 Dextrose 400 Mcg In Premix 1 Bag @ 0.2 MCG/KG/HR 4.096 mls/ hr IV .Q24H [facility] Rx#:[id number] Oral 480 Output: Void Amount 425 200 Other: Urine Appearance Clear Urine Color Dark Yellow Dark Yellow Urine Odor Strong Head Head exam: Present normal inspection Eye Eye exam: Present PERRL (OS lateral and downward gaze palsy); Absent nystagmus Respiratory Respiratory exam: Present normal respiratory exam Cardiovascular Cardiovascular exam: Present normal rate and rhythm GI/Abdominal GI/Abdominal exam: Present normal bowel sounds Psychiatric Psychiatric exam: Present agitated (easily agitated when confronted with alcoholism and his need to address this) Skin Skin exam: Present dry A/P Narrative A/P Narrative: Assessment and plan (1) Alcohol withdrawal syndrome: Assessment and plan: Seem to be improving (2) Chronic hyponatremia: Assessment and plan: Best sodium in 5 years Beer avoidance is the necessary intervention (3) Wernicke-Korsakoff syndrome (alcoholic): Narrative A/P Narrative: Needs EtOH rehab. Celebrate recovery is my suggestion Plan of Treatment: See above I'll sign off No renal followup needed [facility] Time Spent With Patient Time: Total time spent is greater than 50% in coordination of care (as documented) at patient's floor/unit and/or counseling patient:
--- NOTE | 2021-11-01 10:25 | Internal Med Progress Note ---
SUBJECTIVE Subjective Patient information: Note initiated : 11/01/21 at 10:24 am Service Date, if different from initiated Date: [] Patient: Dany Marrero 66 y/o M admitted on 10/28/21 for Low Sodium. Chief Complaint: [] Principal diagnosis: Hyponatremia / [place] Interval history: Mr. Marrero is a 66 year old male with a history of hypertension, COPD, coronary artery disease, PTSD, depression, anxiety, alcohol use disorder was told to go to the emergency department for severe hyponatremia. Upon arrival to the emergency department, the patient was found to have a sodium level of 117. Additionally, the patient was felt to be in alcohol withdrawal. Hospital medicine was consulted for admission. 10/29 Patient became increasingly agitated overnight, hallucinating. A Precedex infusion was started, scheduled Ativan and Ativan IV as needed per CIWA. Mitts placed to prevent the patient from pulling lines. Sodium level improved modestly to 121. 10/30 Off precedex infusion, discontinued scheduled Ativan. Sodium improved to 126, alcohol withdrawal likely resolved now. The patient is alert and oriented. Has abdominal discomfort with movement, abdomen is benign on exam. 10/31 Required precedex last night, weaned off this morning. Continues to require intermittent Ativan per CIWA scores but now more oriented. Sodium [address] abdomen/pelvis ordered for persistent abdominal pain. PT consult. 11/01 Did not require Precedex overnight, CIWA scores have decreased significantly. CT abdomen pelvis was fairly unremarkable, no explanation for the patient's abdominal pain which is possibly musculoskeletal. Sodium slowly trending up, 132 today. Transferred to [facility], working with PT. Physical exam Head: Atraumatic, normal inspection. Eyes: normal appearance, no scleral icterus. Neck: full ROM Respiratory: no respiratory distress. Cardiovascular: normal rate and rhythm, S1, S2. GI/Abdominal: soft, nontender, no guarding. Extremities: full range of motion, nontender. Neurological: CN II-XII intact, intact motor, intact sensation. Psychiatric: Impaired cognition Skin: warm, normal color Constitutional Vitals: Vital Signs Temp Pulse Resp BP Pulse Ox 98.2 F 102 H 20 124/82 94 11/01/21 08:01 11/01/21 08:01 11/01/21 08:01 11/01/21 08:01 11/01/21 08:01 Period Temp Pulse Resp BP Sys/See Pulse Ox Last 24 Hr 98 F-99.3 F 80-102 16- 98-130/59-106 88-97 Intake and Output 10/31/21 11/01/21 11/01/21 21:59 05:59 13:59 Intake Total 480 0 Output Total 425 200 Balance 55 0 -200 Weight 81.012 kg Intake & Output: Intake & Output 10/31/21 11/01/21 11/01/21 21:59 05:59 13:59 Intake Total 480 0 Output Total 425 200 Balance 55 0 -200 Weight 81.012 kg Intake: IV 0 Sodium Chloride 0.9% 1,000 ml @ 0 75 mls/hr IV .[id number] [facility] Rx#: [id number] Precedex 400 Mcg/100 ml 0 Dextrose 400 Mcg In Premix 1 Bag @ 0.2 MCG/KG/HR 4.096 mls/ hr IV .Q24H PRN Rx#:[id number] Oral 480 Output: Void Amount 425 200 Other: Meal Breakfast Percent of Meal Consumed 100% Feeding Ability Independent Urine Appearance Clear Urine Color Dark Yellow Dark Yellow Urine Odor Strong Stool Size Moderate Stool Color Brown Stool Consistency Watery Loose # Bowel Movements 1 # of times incontinent of 0 Bowels OBJ DATA Labs CBC & Chem 7: 11/01/21 05:52 11/01/21 05:52 Labs: Abnormal Lab Results 11/01/21 11/01/21 10/31/21 05:52 05:52 05:13 RBC 4.22 L MCV 101.7 H MCH 36.0 H [place] % (Auto) 14.7 H [place] # (Auto) 1.03 H Sodium 132 L 130 L Chloride Carbon Dioxide 21 L 21 L BUN Creatinine Glucose 113 H 119 H Calcium 8.5 L Direct Bilirubin 0.3 H 0.3 H GGT 221 H 215 H AST 91 H 115 H ALT 84 H 87 H 10/30/21 10/29/21 10/29/21 05:19 18:53 11:12 RBC MCV MCH [place] % (Auto) [place] # (Auto) Sodium 126 L 126 L 124 L Chloride 95 L Carbon Dioxide 19 L BUN 6 L Creatinine 0.6 L Glucose Calcium 8.4 L Direct Bilirubin 0.3 H GGT 236 H AST 167 H ALT 88 H Meds: Medications Acetaminophen (Acetaminophen 325 Mg Tablet) 650 mg PO Q6HP PRN; Protocol PRN Reason: Per Pain Protocol/Fever > 101 Last Admin: 10/31/21 17:15 Dose: 650 mg Documented by: Albuterol Sulfate (Albuterol Sulfate 2.5 Mg/3 Ml Nebulizer) 2.5 mg NEB Q2HP PRN PRN Reason: Shortness Of Breath Aspirin (Aspirin 81 Mg Tab.Chew) 81 mg PO DAILY [facility] Last Admin: 11/01/21 08:32 Dose: 81 mg Documented by: Atorvastatin Calcium (Atorvastatin 40 Mg Tablet) 40 mg PO QHS [facility] Last Admin: 10/31/21 20:09 Dose: 40 mg Documented by: Enalaprilat (Enalaprilat 1.25 Mg/Ml Vial) 0.625 mg IV Q6HP PRN PRN Reason: Hypertension Enoxaparin Sodium (Enoxaparin 40 Mg/0.4 Ml Syringe) 40 mg SQ DAILY [facility] Last Admin: 11/01/21 08:33 Dose: 40 mg Documented by: Escitalopram Oxalate (Escitalopram 20 Mg Tablet) 20 mg PO QDAY [facility] Last Admin: 11/01/21 08:33 Dose: 20 mg Documented by: Folic Acid (Folic Acid 1 Mg Tablet) 1 mg PO DAILY [facility] Last Admin: 11/01/21 08:33 Dose: 1 mg Documented by: Hydroxyzine HCl (Hydroxyzine 25 Mg Tablet) 25 mg PO BID PRN PRN Reason: Anxiety Last Admin: 10/31/21 20:09 Dose: 25 mg Documented by: Thiamine HCl 200 mg/ Sodium (Chloride) 52 mls @ 50 mls/hr IV DAILY [facility] Last Admin: 11/01/21 08:56 Dose: 50 mls/hr Documented by: Dexmedetomidine HCl 400 mcg/ (Premix) 100 mls @ 4.096 mls/hr IV .Q24H PRN; Protocol PRN Reason: Alcohol Withdrawal Last Titration: 11/01/21 00:24 Dose: Infused Documented by: Sodium Chloride (Sodium Chloride 0.9%) 250 mls @ 20 mls/hr IV .[id number] [facility] Last Admin: 10/31/21 22:35 Dose: Not Given Documented by: Iron Carb/Multivit/[employer]/Folic Acid (Multivit,Ther Iron,Ca,Fa & Min 1 Tablet) 1 tab PO DAILY [facility] Last Admin: 11/01/21 08:33 Dose: 1 tab Documented by: Lactulose (Lactulose 20 Gm/30 Ml Oral.Garima) 10 gm PO DAILYP PRN PRN Reason: Constipation Lorazepam (Lorazepam 2 Mg/Ml Vial) 0 mg IV Q4HP PRN; Protocol PRN Reason: Alcohol Withdrawal Last Admin: 11/01/21 01:43 Dose: 1 mg Documented by: Magnesium Oxide (Magnesium Oxide 400 Mg Tablet) 400 mg PO BID [facility] Last Admin: 11/01/21 08:33 Dose: 400 mg Documented by: Mirtazapine (Mirtazapine 15 Mg Tablet) 15 mg PO QDAY [facility] Last Admin: 11/01/21 08:33 Dose: 15 mg Documented by: Nicotine (Nicotine 21 Mg Patch) 21 mg TOPICAL DAILY@1000 [facility] Last Admin: 10/31/21 09:46 Dose: 21 mg Documented by: Ondansetron HCl (Ondansetron 4 Mg/2 Ml Vial) 4 mg IV Q4HP PRN; Protocol PRN Reason: Nausea And Vomiting Last Admin: 10/31/21 00:06 Dose: 4 mg Documented by: Senna (Sennosides 1 Tablet) 2 tab PO HSP PRN PRN Reason: Constipation Sodium Chloride (0.9 % Sodium Chloride 10 Ml Syringe) 10 ml IV Q8 [facility] Last Admin: 11/01/21 06:08 Dose: 10 ml Documented by: A/P Narrative A/P Narrative: Assessment: 66 year old male with a history of alcohol use disorder admitted for severe hyponatremia likely related to alcohol use. After admission, the patient developed severe alcohol withdrawal complicated by delirium tremens. #Resolving severe alcohol withdrawal/delirium tremens #Improving hyponatremia secondary to chronic alcohol intake #Elevated LFTs, improving #Hypertension #PTSD #Depression #Anxiety #Severe alcohol use disorder Plan -Transfer to [facility]. -CIWA protocol with Ativan IV prn per [facility]. -Vitamin supplementation. -Replace electrolytes as needed. -Hold home losartan for now, likely resume soon. -Continue home aspirin, atorvastatin, escitalopram, mirtazapine, hydroxyzine as needed. -Nephrology following. -Fluid restricted diet for hyponatremia. -DVT prophylaxis: Lovenox -CODE STATUS: Full -Disposition: TBD Plan of Treatment: See above Time Spent With Patient Time: Total time spent is greater than 50% in coordination of care (as documented) at patient's floor/unit and/or counseling patient: QUALITY VTE Deep Vein Thrombosis/Pulmonary Embolism Present on Admission: No
[2021-11-01] MEDS: ACETAMINOPHEN 325 MG TABLET PO PRN (12:26)
[2021-11-01] MEDS: 0.9 % SODIUM CHLORIDE 250 ML IV SCH (12:54)
--- NOTE | 2021-11-01 13:56 | Internal Med Progress Note ---
SUBJECTIVE Subjective Patient information: Note initiated : 11/01/21 at 1:50 pm Service Date, if different from initiated Date: [] Patient: Dany Marrero 66 y/o M admitted on 10/28/21 for Low Sodium. Chief Complaint: [] Principal diagnosis: Hyponatremia / [place] Interval history: Mr. Marrero is a 66 year old male with a history of hypertension, COPD, coronary artery disease, PTSD, depression, anxiety, alcohol use disorder was told to go to the emergency department for severe hyponatremia. Upon arrival to the emergency department, the patient was found to have a sodium level of 117. Additionally, the patient was felt to be in alcohol withdrawal. Hospital medicine was consulted for admission. 10/29 Patient became increasingly agitated overnight, hallucinating. A Precedex infusion was started, scheduled Ativan and Ativan IV as needed per CIWA. Mitts placed to prevent the patient from pulling lines. Sodium level improved modestly to 121. 10/30 Off precedex infusion, discontinued scheduled Ativan. Sodium improved to 126, alcohol withdrawal likely resolved now. The patient is alert and oriented. Has abdominal discomfort with movement, abdomen is benign on exam. 10/31 Required precedex last night, weaned off this morning. Continues to require intermittent Ativan per CIWA scores but now more oriented. Sodium [address] abdomen/pelvis ordered for persistent abdominal pain. PT consult. 11/01 Did not require Precedex overnight, CIWA scores have decreased significantly. CT abdomen pelvis was fairly unremarkable, no explanation for the patient's abdominal pain which is possibly musculoskeletal. Sodium slowly trending up, 132 today. Transferred to [facility], working with PT. 11/02 Constitutional Vitals: Vital Signs Temp Pulse Resp BP Pulse Ox 99.4 F H 110 H 20 118/80 93 11/01/21 12:14 11/01/21 12:14 11/01/21 12:14 11/01/21 12:14 11/01/21 12:14 Period Temp Pulse Resp BP Sys/See Pulse Ox Last 24 Hr 98.2 F-99.4 F 80-110 - 98-130/59-106 88-97 Intake and Output 10/31/21 11/01/21 11/01/21 21:59 05:59 13:59 Intake Total 480 0 172 Output Total 525 200 Balance -45 0 -28 Weight 81.012 kg Intake & Output: Intake & Output 10/31/21 11/01/21 11/01/21 21:59 05:59 13:59 Intake Total 480 0 172 Output Total 525 200 Balance -45 0 -28 Weight 81.012 kg Intake: Nourishment/Supplement quantity 120 (ml) IV 0 52 Sodium Chloride 0.9% 1,000 ml @ 0 75 mls/hr IV .[id number] [facility] Rx#: [id number] Precedex 400 Mcg/100 ml 0 Dextrose 400 Mcg In Premix 1 Bag @ 0.2 MCG/KG/HR 4.096 mls/ hr IV .Q24H PRN Rx#:[id number] Vitamin B1 200 mg In Sodium 52 Chloride 0.9% 50 ml @ 50 mls/hr IV DAILY [facility] Rx#:[id number] Oral 480 Output: Void Amount 525 200 Other: Meal Lunch Percent of Meal Consumed 75% Feeding Ability Independent Nourishment/Supplement name nepro Urine Appearance Clear Urine Color Dark Yellow Dark Yellow Urine Odor Strong Stool Size Moderate Stool Color Brown Stool Consistency Watery Loose # Bowel Movements 1 # of times incontinent of 0 Bowels Exam: General: Alert, Awake, No acute Distress Eyes/N/T: EOMI, Head/Neck: neck supple, CV: RRR, No murmurs, Pulm: Clear b/l, no wheezing/rhonchi/rales Abd: soft, nontender, +BS x4 Ext: no clubbing/cyanosis/edema Neuro: Alert, no focal deficits, moves all extremities, Psychiatric: Impaired cognition Skin: warm/dry OBJ DATA Labs CBC & Chem 7: 11/01/21 05:52 11/01/21 05:52 Labs: Abnormal Lab Results 11/01/21 11/01/21 10/31/21 05:52 05:52 05:13 RBC 4.22 L MCV 101.7 H MCH 36.0 H [place] % (Auto) 14.7 H [place] # (Auto) 1.03 H Sodium 132 L 130 L Chloride Carbon Dioxide 21 L 21 L BUN Creatinine Glucose 113 H 119 H Calcium 8.5 L Direct Bilirubin 0.3 H 0.3 H GGT 221 H 215 H AST 91 H 115 H ALT 84 H 87 H 10/30/21 10/29/21 05:19 18:53 RBC MCV MCH [place] % (Auto) [place] # (Auto) Sodium 126 L 126 L Chloride 95 L Carbon Dioxide 19 L BUN 6 L Creatinine 0.6 L Glucose Calcium 8.4 L Direct Bilirubin 0.3 H GGT 236 H AST 167 H ALT 88 H Meds: Medications Acetaminophen (Acetaminophen 325 Mg Tablet) 650 mg PO Q6HP PRN; Protocol PRN Reason: Per Pain Protocol/Fever > 101 Last Admin: 11/01/21 12:26 Dose: 650 mg Documented by: Albuterol Sulfate (Albuterol Sulfate 2.5 Mg/3 Ml Nebulizer) 2.5 mg NEB Q2HP PRN PRN Reason: Shortness Of Breath Aspirin (Aspirin 81 Mg Tab.Chew) 81 mg PO DAILY [facility] Last Admin: 11/01/21 08:32 Dose: 81 mg Documented by: Atorvastatin Calcium (Atorvastatin 40 Mg Tablet) 40 mg PO QHS [facility] Last Admin: 10/31/21 20:09 Dose: 40 mg Documented by: Enalaprilat (Enalaprilat 1.25 Mg/Ml Vial) 0.625 mg IV Q6HP PRN PRN Reason: Hypertension Enoxaparin Sodium (Enoxaparin 40 Mg/0.4 Ml Syringe) 40 mg SQ DAILY [facility] Last Admin: 11/01/21 08:33 Dose: 40 mg Documented by: Escitalopram Oxalate (Escitalopram 20 Mg Tablet) 20 mg PO QDAY [facility] Last Admin: 11/01/21 08:33 Dose: 20 mg Documented by: Folic Acid (Folic Acid 1 Mg Tablet) 1 mg PO DAILY [facility] Last Admin: 11/01/21 08:33 Dose: 1 mg Documented by: Hydroxyzine HCl (Hydroxyzine 25 Mg Tablet) 25 mg PO BID PRN PRN Reason: Anxiety Last Admin: 10/31/21 20:09 Dose: 25 mg Documented by: Thiamine HCl 200 mg/ Sodium (Chloride) 52 mls @ 50 mls/hr IV DAILY [facility] Last Infusion: 11/01/21 09:59 Dose: Infused Documented by: Dexmedetomidine HCl 400 mcg/ (Premix) 100 mls @ 4.096 mls/hr IV .Q24H PRN; Protocol PRN Reason: Alcohol Withdrawal Last Titration: 11/01/21 00:24 Dose: Infused Documented by: Sodium Chloride (Sodium Chloride 0.9%) 250 mls @ 20 mls/hr IV .[id number] [facility] Last Admin: 11/01/21 12:54 Dose: Not Given Documented by: Iron Carb/Multivit/[place]/Folic Acid (Multivit,Ther Iron,Ca,Fa & Min 1 Tablet) 1 tab PO DAILY [facility] Last Admin: 11/01/21 08:33 Dose: 1 tab Documented by: Lactulose (Lactulose 20 Gm/30 Ml Oral.Garima) 10 gm PO DAILYP PRN PRN Reason: Constipation Lorazepam (Lorazepam 2 Mg/Ml Vial) 0 mg IV Q4HP PRN; Protocol PRN Reason: Alcohol Withdrawal Last Admin: 11/01/21 01:43 Dose: 1 mg Documented by: Magnesium Oxide (Magnesium Oxide 400 Mg Tablet) 400 mg PO BID [facility] Last Admin: 11/01/21 08:33 Dose: 400 mg Documented by: Mirtazapine (Mirtazapine 15 Mg Tablet) 15 mg PO QDAY [facility] Last Admin: 11/01/21 08:33 Dose: 15 mg Documented by: Nicotine (Nicotine 21 Mg Patch) 21 mg TOPICAL DAILY@1000 [facility] Last Admin: 11/01/21 09:30 Dose: 21 mg Documented by: Ondansetron HCl (Ondansetron 4 Mg/2 Ml Vial) 4 mg IV Q4HP PRN; Protocol PRN Reason: Nausea And Vomiting Last Admin: 10/31/21 00:06 Dose: 4 mg Documented by: Senna (Sennosides 1 Tablet) 2 tab PO HSP PRN PRN Reason: Constipation Sodium Chloride (0.9 % Sodium Chloride 10 Ml Syringe) 10 ml IV Q8 [facility] Last Admin: 11/01/21 12:52 Dose: 10 ml Documented by: A/P Narrative A/P Narrative: A: #severe alcohol withdrawal/delirium tremens: improving #Severe alcohol use disorder #Hyponatremia, acute on chronic: 2/2 chronic alcohol intake. improved #Elevated LFTs: improving #Macrocytosis: 2/2 alcohol use #HTN: #PTSD/Depression/Anxiety: Plan: -CIWA protocol with Ativan IV prn per CIWA. -Vitamin supplementation. -Replace electrolytes as needed. -Hold home losartan for now, likely resume soon -Continue home ASA/Statin, escitalopram/mirtazapine -Nephrology following -Fluid restricted diet for hyponatremia -Alcohol cessation counseling -ppxs: Lovenox Time Spent With Patient Time: Total time spent is greater than 50% in coordination of care (as documented) at patient's floor/unit and/or counseling patient: QUALITY VTE Deep Vein Thrombosis/Pulmonary Embolism Present on Admission: No
[2021-11-01] MEDS: hydrOXYzine 25 MG TABLET PO PRN (21:05)
[2021-11-01] MEDS: ATORVASTATIN 40 MG TABLET PO SCH (21:05)
--- NOTE | 2021-11-01 21:52 | Discharge Summary ---
Discharge Provider Provider Patient information: Note initiated : 11/01/21 at 9:51 pm Service Date, if different from initiated Date: [] Patient: Dany Marrero 66 y/o M admitted on 10/28/21 for Low Sodium. Chief Complaint: [] Date of admission: 10/28/21 00:31 Discharge date: 11/02/21 Primary care physician: PCP No Consults: 10/27/21 Consult to Physician [CONS] Stat Comment: Consulting Provider: Jama Gregory Reason For Exam: Physician to Consult Consult to Physician [CONS] Stat Comment: Consulting Provider: Kei James Reason For Exam: Physician to Consult Discharge Meds Discharge Medications Home Medications aspirin 81 mg PO DAILY 09/08/20 [History Confirmed 10/28/21 Last Taken Unknown] losartan 25 mg PO BID 09/08/20 [History Confirmed 10/28/21 Last Taken Unknown] mirtazapine 15 mg PO QDAY 09/08/20 [History Confirmed 10/28/21 Last Taken Unknown] atorvastatin 40 mg tablet 40 mg PO QHS 10/28/21 [History Confirmed 10/28/21 Last Taken Unknown] cholecalciferol (vitamin D3) 50 mcg (2,000 unit) tablet 50 mcg PO DAILY 10/28/21 [History Confirmed 10/28/21 Last Taken Unknown] diphenhydramine HCl 25 mg capsule 25 mg PO HSP PRN 10/28/21 [History Confirmed 10/28/21 Last Taken Unknown] escitalopram oxalate 20 mg tablet 20 mg PO QDAY 10/28/21 [History Confirmed 10/28/21 Last Taken Unknown] hydroxyzine HCl 25 mg tablet 25 - 50 mg PO BID PRN 10/28/21 [History Confirmed 10/28/21 Last Taken Unknown] magnesium oxide 400 mg PO BID 10/28/21 [History Confirmed 10/28/21 Last Taken Unknown] COURSE Hospital Course Hospital course: Interval history: Mr. Marrero is a 66 year old male with a history of hypertension, COPD, coronary artery disease, PTSD, depression, anxiety, alcohol use disorder was told to go to the emergency department for severe hyponatremia. Upon arrival to the emergency department, the patient was found to have a sodium level of 117. Additionally, the patient was felt to be in alcohol withdrawal. Hospital medicine was consulted for admission. 10/29 Patient became increasingly agitated overnight, hallucinating. A Precedex infusion was started, scheduled Ativan and Ativan IV as needed per CIWA. Mitts placed to prevent the patient from pulling lines. Sodium level improved modestly to 121. 4/8 Off precedex infusion, discontinued scheduled Ativan. Sodium improved to 126, alcohol withdrawal likely resolved now. The patient is alert and oriented. Has abdominal discomfort with movement, abdomen is benign on exam. 10/31 Required precedex last night, weaned off this morning. Continues to require intermittent Ativan per CIWA scores but now more oriented. Sodium [address] abdomen/pelvis ordered for persistent abdominal pain. PT consult. 11/01 Did not require Precedex overnight, CIWA scores have decreased significantly. CT abdomen pelvis was fairly unremarkable, no explanation for the patient's abdominal pain which is possibly musculoskeletal. Sodium slowly trending up, 13 2 today. Transferred to [facility], working with PT. 11/02 Patient stable and did not require Ativan last night. Patient wanted to go home. Talked to patient about following up for alcohol cessation. High risk for readmission if he continues to drink A: #severe alcohol withdrawal/delirium tremens: improving #Severe alcohol use disorder #Hyponatremia, acute on chronic: 2/2 chronic alcohol intake. improved #Elevated LFTs: improving #Macrocytosis: 2/2 alcohol use #HTN: #PTSD/Depression/Anxiety: Plan: -Alcohol cessation counseling Discharge diagnosis: Alcohol withdrawal with delirium tremens alcohol abuse Secondary discharge diagnosis: Transaminitis macrocytosis hypertension PTSD depression anxiety Time Spent with Patient Time attestation: Total time spent providing and/or coordinating discharge services: Time spent: Greater than 30 minutes EXAM Constitutional Vitals: Temp Pulse Resp BP Pulse Ox 98.4 F 91 H 18 135/87 93 11/01/21 17:05 11/01/21 17:05 11/01/21 17:05 11/01/21 17:05 11/01/21 17:05 Discharge Data Data Completed and Pending Labs on day of discharge: Labs from last 24 hours 11/01/21 11/01/21 05:52 05:52 WBC 7.0 RBC 4.22 L Hgb 15.2 Hct 42.9 MCV 101.7 H MCH 36.0 H MCHC 35.4 RDW 13.2 Plt Count 171 MPV 9.5 Neut % (Auto) 58.9 Lymph % (Auto) 23.3 [place] % (Auto) 14.7 H Eos % (Auto) 2.0 Baso % (Auto) 1.1 Lymph # (Auto) 1.63 [place] # (Auto) 1.03 H Eos # (Auto) 0.14 Baso # (Auto) 0.08 Absolute Neutrophils 4.12 Sodium 132 L Potassium 3.7 Chloride 99 Carbon Dioxide 21 L Anion Gap 12.0 BUN 11 Creatinine 0.7 GFR Calculation 98 Glucose 113 H Uric Acid 3.8 Calcium 9.2 Phosphorus 3.7 Magnesium 2.1 Total Bilirubin 0.9 Direct Bilirubin 0.3 H GGT 221 H AST 91 H ALT 84 H Alkaline Phosphatase 76 Lactate Dehydrogenase 180 Total Protein 7.2 Albumin 3.8 Globulin 3.4 Albumin/Globulin Ratio 1.1 Triglycerides 72 Discharge Plan Patient/Caregiver Discharge Instructions Activity: increase activity as tolerated Diet: Regular Diet Activity Restrictions/Additional Instructions: Follow-up with PCP in 3 to 7 days. Prescriptions: Continued aspirin 81 mg PO DAILY 0RF losartan 25 mg PO BID 0RF mirtazapine 15 mg PO QDAY 0RF diphenhydramine HCl 25 mg Capsule 25 mg PO HSP PRN (Reason: Insomnia) 0RF cholecalciferol (vitamin D3) 50 mcg (2,000 unit) Tablet 50 mcg PO DAILY 0RF atorvastatin 40 mg Tablet 40 mg PO QHS 0RF hydroxyzine HCl 25 mg Tablet 25 - 50 mg PO BID PRN (Reason: Anxiety) 0RF escitalopram oxalate 20 mg Tablet 20 mg PO QDAY 0RF magnesium oxide 400 mg magnesium Tablet 400 mg PO BID 0RF Follow Up Plan Follow up with: No,PCP [Primary Care Provider] - Patient Disposition: Home, Self-Care Prognosis: Undetermined Overall status at discharge: patient is progressing back to baseline Discharge Orders: Discharge Order (Routine); Ordered 11/02/21 [facility] Deep Vein Thrombosis/Pulmonary Embolism Present on Admission: No
[2021-11-02] MEDS: 0.9 % SODIUM CHLORIDE 250 ML IV SCH (02:09)
[2021-11-02] MEDS: 0.9 % SODIUM CHLORIDE 10 ML SYRINGE IV SCH (04:46)
[2021-11-02] MEDS: ONDANSETRON 4 MG/2 ML VIAL IV PRN (05:03)
[2021-11-02] MEDS: ASPIRIN 81 MG TAB.CHEW PO SCH (08:05)
[2021-11-02] MEDS: MIRTAZAPINE 15 MG TABLET PO SCH (08:06)
[2021-11-02] MEDS: MAGNESIUM OXIDE 400 MG TABLET PO SCH (08:06)
[2021-11-02] MEDS: FOLIC ACID 1 MG TABLET PO SCH (08:06)
[2021-11-02] MEDS: MULTIVIT,THER IRON,CA,FA & MIN 1 TABLET PO SCH (08:07)
[2021-11-02] MEDS: THIAMINE 200 MG in 0.9 % SODIUM CHLORIDE 50 ML IV SCH (08:07)
[2021-11-02] MEDS: ENOXAPARIN 40 MG/0.4 ML SYRINGE SQ SCH (08:07)
[2021-11-02] MEDS: ESCITALOPRAM 20 MG TABLET PO SCH (08:07)
[2021-11-02] MEDS: hydrOXYzine 25 MG TABLET PO PRN (08:30)
[2021-11-02] MEDS: NICOTINE 21 MG PATCH TOPICAL SCH (09:34)
== END 2021-11-02 10:40 | disposition home or self-care (01) | DRG 897 ==
LOC: ED 21:37 → ICU 10-28 00:31 → MEDSUR 11-01 16:23
PROVIDERS: ADMIT Internal Medicine; ATTEND Internal Medicine